=== PATIENT | female | born 1950 | race Caucasian/White ===

== ENCOUNTER → 2017-04-17 | Outpatient (CLI) | payer OTHER ==
[~2017-04-17] MED LIST: ACET-1256 PO; ACT30 PO; CALC-20 PO; CHOL20005 PO; CITA40TA4 PO; COEN200C PO; DICL1GEL12 TOP; FLNIN NAE; IBUP-103 PO; LANS15CA27 PO; LUTE1CAP3 PO; LYSI500C2 PO; MELO7.5T5 PO; METO-157 PO; MULT-1016 PO; NIAC100T5 PO; NIFE30TA83 PO; OMEG10007 PO; SENN-104 PO; SYN125 PO; VENL-273 PO; ZINC50TA3 PO; [UNRECOGNIZED DRUG - CODE] PO
--- NOTE | 2017-04-17 13:41 | MAMMOGRAPHY REPORT ---
BILATERAL DIGITAL SCREENING MAMMOGRAM WITH CAD: 04/17/2017 CLINICAL HISTORY: Routine screening. Patient has no complaints. TECHNIQUE: Current study was also evaluated with a Computer Aided Detection (CAD) system. Bilateral CC and MLO views were obtained. COMPARISON: Comparison is made to exams dated: 04/11/2016 mammogram, 04/06/2015 mammogram, 04/05/2014 mamm ogram, 04/01/2013 mammogram, 03/01/2012 mammogram, and 02/26/2011 mammogram - [facility] er. BREAST COMPOSITION: The tissue of both breasts is heterogeneously dense, which may obscure small mas ses. FINDINGS: No suspicious masses, calcifications, or areas of architectural distortion are noted in ei ther breast. There has been no significant interval change compared to prior exams. Scattered bilate ral benign rodlike secretory calcifications are again noted. IMPRESSION: ACR BI-RADS CATEGORY 2: BENIGN There is no mammographic evidence of malignancy. A 1 year screening mammogram is recommended. The pa tient will receive written notification of the results. Approximately 10% of breast cancers are not detected with mammography. A negative mammographic report should not delay biopsy if a clinically suggestive mass is present. Charo Paulino M.D. /:04/17/2017 10:56:24 Straight Ruling Machine Operator: Pamela MOMIN(Roxanne)(M), [facility] letter sent: Normal 1/2 BI-RADS Code: ACR BI-RADS Category 2: Benign
== END | disposition home or self-care (01) ==
LOC: C.MAMM 08:31
PROVIDERS: ATTEND Obstetrics & Gynecology
DX: Z12.31 Encounter for screening mammogram for malignant neoplasm of breast (principal)

== ENCOUNTER → 2017-06-18 | Outpatient (CLI) | payer OTHER ==
[~2017-06-18] MED LIST changes: +ASPEC81 PO; +ATOR10TA82 PO; -CALC-20 PO; +CALC600T9 PO; -CHOL20005 PO; +CHOL20009 PO; +CITA10TA8 PO; -CITA40TA4 PO; +COEN1CAP7 PO; -COEN200C PO; -DICL1GEL12 TOP; -FLNIN NAE; +FLUT0.15 NAE; -IBUP-103 PO; +IBUP-1459 PO; +LEVO112T4 PO; -LUTE1CAP3 PO; -METO-157 PO; -MULT-1016 PO; +MULT-506 PO; -NIAC100T5 PO; -SENN-104 PO; +SENN-65 PO; -SYN125 PO; -[UNRECOGNIZED DRUG - CODE] PO
== END | disposition home or self-care (01) ==
LOC: C.CPL 14:18
PROVIDERS: ATTEND Family Medicine
DX: R07.9 Chest pain, unspecified (principal)

== ENCOUNTER 2024-06-20 13:10 | Observation (INO) ==
--- NOTE | 2024-06-20 13:34 | Emergency Department Note ---
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 Patient notes that she remembers being confused. Per EMS who provided additional history family noted that she had repetitive questioning and did not know what was going on. Patient denies any headache or change or loss of vision. No chest pain or shortness of breath. No nausea, vomiting, or diarrhea. No weakness or numbness is new in the arms or legs per patient. No dysuria, urgency, or frequency. No other exacerbating or remitting factors. ADDITIONAL HISTORY OBTAINED: Per HPI Chronic Medical/Social Conditions Affecting Care: Per HPI PAST MEDICAL HISTORY:See Below PAST SURGICAL HISTORY:See Below FAMILY HISTORY:See Below SOCIAL HISTORY:See Below HOME MEDICATIONS:See Below ALLERGIES:See Below VITALS:See Below PHYSICAL EXAMINATION: GENERAL: Sitting up in bed, alert, well appearing, well nourished, no distress, non-toxic EYE EXAM: normal conjunctiva. PERRL and EOM's intact. OROPHARYNX: no exudate, no erythema, lips, buccal mucosa, and tongue normal and mucous membranes are moist NECK: supple, no nuchal rigidity, no adenopathy, non-tender LUNGS: Clear to auscultation. Normal chest wall mechanics HEART: no murmurs, S1 normal and S2 normal ABDOMEN: abdomen soft, non-tender, normo-active bowel sounds, no masses, no rebound or guarding. BACK: Back is symmetrical on inspection and there is no deformity, no midline tenderness, no CVA tenderness. SKIN: no rashes and no bruising UPPER EXTREMITIES: upper extremities are grossly normal. LOWER EXTREMITIES: No pitting edema. NEURO EXAM: Normal sensorium, cranial nerves II-XII intact, normal speech, no weakness of arms, left lower extremity does appear to be slightly weaker than the right but patient notes that this is old and is always there since her TBI. No drift. Finger to nose intact. Gross sensation intact. MEDICAL DECISION MAKING: Patient is a 74-year-old female who presents to the ER for the above-stated complaint. IV was established blood work was obtained. Labs show no significant leukocytosis or anemia. BMP on LFTs bilirubin was unremarkable. Lipase and troponin were negative. Patient is neurologically intact at her baseline per report and confirmation by family at bedside. CT of the head as well as angios of the head and neck were negative. Chest x-ray was clean. Patient was updated at bedside and attempted to obtain a UA but was unsuccessful as she missed the hat. She was unable to ambulate due to significant weakness and consequently was discussed with the hospitalist for further evaluation management treatment. Consults/Care Managements Discussions: Per MDM Triage Nursing notes reviewed. Limited review of prior medical records performed Vital Signs: reviewed and remarkable for no significant abnormalities Differential diagnosis: Infection, dehydration, metabolic abnormality, hypo/hyperglycemia, electrolyte disturbance, anemia, hypoxia, cardiac sources, intracerebral event, toxicologic, neurologic, as well as other pathologies. ER treatment provided: See below Diagnostics interpreted by me include EKG and cardiac monitoring as listed below: -Cardiac Monitoring: An order was placed for continuous cardiac monitoring. The monitor shows a rate of 70 with sinus rhythm. -ECG: Sinus rhythm rate of 73 Left bundle branch block QTc [address] wave changes in the high lateral leads Septal Q waves -Laboratory studies:Interpreted by me as stated above in MDM and shown below. Imaging studies: Xrays: As interpreted by me: Portable AP upright 1 view of the chest shows no focal infiltrate CTs show: CT angios of the head and neck were negative Procedures:none Critical Care: None Past Med/Surg History Problem List (Updated 06/20/24 @ 18:19 by Waldo James DO) Weakness (Acute) Acute confusion (Acute) Altered mental status History of traumatic brain injury Ambulatory dysfunction Nocturia Spasticity as late effect of cerebrovascular accident (CVA) Gait disorder Low back pain DVT femoral (deep venous thrombosis) with thrombophlebitis Weakness of left arm Depression Epidural lipomatosis Stenosis, spinal, lumbar History of cervical spinal surgery C5-C6, C6-C7 in 2005; C4-C5 IN 01/2013 Lumbar vertebral fracture Neurogenic bladder Left leg weakness Fracture of fourth lumbar vertebra Vertigo due to brain injury Urinary incontinence Delirium due to known physiological condition Urinary frequency 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 59 minutes Microalbuminuria Anxiety Chest pain Hypothyroidism Osteoarthritis Mood disorder Raynaud disease Colonic adenoma Sleep apnea Hypertension (Chronic) Hyperlipidemia (Chronic) Diabetes (Chronic) Medical History Edema of left lower leg 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) From a fall-has urgent orthopedic consult ordered Lumbar disc disease with radiculopathy Increased urinary frequency Basal cell carcinoma right med calf Cellulitis Carpal tunnel syndrome Surgical History S/P blepharoplasty 11/15/13 History of surgical fusion joint History of carpal tunnel repair left 08/2010 History of oral surgery History of tubal ligation Family History Mother Hypothyroidism Dyslipidemia Renal failure Heart failure Skin cancer basal cell Arthritis Father Hypertension Heart disease Dyslipidemia Skin cancer (melanoma) basal cell Melanoma of multiple sites Parkinson disease Sister Multiple sclerosis Brother Polymyositis Arthritis Melanoma of multiple sites Glaucoma Denies family history of Ovarian cancer Breast cancer Social History Smoking Status: Never smoker Second Hand Exposure: No; Hx Alcohol Use: Yes Alcohol type: wine and hard liquor Alcohol Intake Frequency: Monthly or Less Hx Substance Use: No Preferred Language: Mosotho Communication Ability: Effective Visual Impairment: Diminished Hearing Ability: Normal Buyer Liaison Required: No marital status: Current Living Situation: Alone Current Living Situation Comment: cat current occupational status: employed current occupation: [employer] How many Children do You have: 0 Feels Safe at Home: Yes Childhood Exposure to Second-Hand Smoke: No Diet: regular caffeine: Yes (1 cup a day) Dental Care, Regularly: Yes Physical Activity Frequency: Does not Exercise Seatbelt Use: always Sunscreen Use: Yes Assistive Devices: Glasses Allergies Allergies Allergy/AdvReac Type Severity Reaction Status Date / Time adhesive Allergy Mild RASH Verified 06/13/24 15:07 esomeprazole Allergy Mild RASH Verified 06/13/24 15:07 gabapentin Allergy Mild RASH Verified 06/13/24 15:07 hydrochlorothiazide Allergy Mild RASH-MICARD Verified 06/13/24 15:07 IS omeprazole Allergy Mild Rash Verified 06/13/24 15:07 Sulfa (Sulfonamide Allergy Mild RASH Verified 06/13/24 15:07 Antibiotics) telmisartan Allergy Mild RASH-MICARD Verified 06/13/24 15:07 IS thimerosal Allergy Unknown POSITIVE Verified 06/13/24 15:07 ALLERGY TEST codeine AdvReac Mild NAUSEA Verified 06/13/24 15:07 propoxyphene AdvReac Mild NAUSEA Verified 06/13/24 15:07 Home Meds Home Medications Medication Instructions Recorded Confirmed oxybutynin chloride 5 mg tablet 5 mg PO BID PRN 01/21/24 06/13/24 pioglitazone 15 mg tablet 15 mg PO DAILY 01/21/24 06/13/24 acetaminophen 500 mg capsule 500 mg PO HS PRN 06/13/24 06/13/24 Previous Rx's Medication Instructions Recorded meclizine 25 mg tablet 25 mg PO BID PRN dizziness #30 tabs 08/31/23 loperamide 2 mg capsule 2 mg PO Q6H PRN loose stool #14 11/05/23 (Anti-Diarrheal (loperamide)) caps levothyroxine 112 mcg tablet 112 mcg PO DAILY #90 tabs 12/14/23 mirabegron 25 mg tablet,extended 25 mg PO DAILY #90 tabs 12/14/23 release 24 hr (Myrbetriq) rosuvastatin 5 mg tablet (Crestor) 5 mg PO DAILY #90 tabs 12/14/23 valsartan 40 mg tablet 40 mg PO BID #180 tabs 12/14/23 venlafaxine 150 mg 150 mg PO DAILY #90 caps 12/14/23 capsule,extended release 24 hr pantoprazole 40 mg tablet,delayed 40 mg PO DAILY #90 tabs 12/23/23 release (Protonix) venlafaxine 75 mg capsule,extended 75 mg PO DAILY #30 caps 12/24/23 release 24 hr CPAP Machine #1 ea 02/01/24 lorazepam 0.5 mg tablet 0.5 mg PO TID PRN anxiety #90 tabs 02/29/24 nifedipine 60 mg tablet,extended 60 mg PO DAILY 90 days #90 tabs 03/01/24 release baclofen 5 mg tablet 5 mg PO DAILY #30 tabs 05/25/24 desmopressin 0.1 mg tablet 0.1 mg PO HS #30 tabs 06/13/24 sertraline 50 mg tablet 50 mg PO DAILY #30 tabs 06/13/24 Results & Data (ED) Vital Signs Vital Signs - 24 hr 06/20/24 13:21 06/20/24 13:38 06/20/24 13:43 Temperature 36.6 C Temperature Source Oral Pulse Rate 74 76 Pulse Rate from SpO2 Sensor Respiratory Rate 22 Blood Pressure 119/62 Blood Pressure Mean 81 Blood Pressure Position Semi-fowlers Pulse Oximetry 92 Oxygen Delivery Method Room Air Room Air Sepsis Recent Fever Within 48 Hours No Sepsis New/Unexplained Change in Mental Status No Sepsis Action Taken by Nursing No Action Required 06/20/24 13:44 06/20/24 14:09 06/20/24 14:21 Temperature Temperature Source Pulse Rate 76 72 71 Pulse Rate from SpO2 Sensor 73 71 Respiratory Rate 22 17 24 Blood Pressure Blood Pressure Mean Blood Pressure Position Pulse Oximetry 92 91 94 Oxygen Delivery Method Room Air Sepsis Recent Fever Within 48 Hours Sepsis New/Unexplained Change in Mental Status Sepsis Action Taken by Nursing 06/20/24 14:30 06/20/24 14:36 06/20/24 14:42 Temperature Temperature Source Pulse Rate 71 71 Pulse Rate from SpO2 Sensor 71 72 Respiratory Rate 19 19 Blood Pressure 101/48 L Blood Pressure Mean 64 Blood Pressure Position Pulse Oximetry 93 92 Oxygen Delivery Method Sepsis Recent Fever Within 48 Hours Sepsis New/Unexplained Change in Mental Status Sepsis Action Taken by Nursing 06/20/24 15:00 06/20/24 15:03 06/20/24 15:51 Temperature Temperature Source Pulse Rate 80 79 Pulse Rate from SpO2 Sensor 80 80 Respiratory Rate 20 22 Blood Pressure 107/57 L Blood Pressure Mean 62 Blood Pressure Position Pulse Oximetry 93 94 Oxygen Delivery Method Room Air Room Air Sepsis Recent Fever Within 48 Hours Sepsis New/Unexplained Change in Mental Status Sepsis Action Taken by Nursing 06/20/24 16:00 06/20/24 16:00 06/20/24 16:27 Temperature Temperature Source Pulse Rate 79 81 Pulse Rate from SpO2 Sensor 80 Respiratory Rate 20 16 Blood Pressure 136/69 Blood Pressure Mean 103 Blood Pressure Position Pulse Oximetry 94 Oxygen Delivery Method Room Air Sepsis Recent Fever Within 48 Hours Sepsis New/Unexplained Change in Mental Status Sepsis Action Taken by Nursing 06/20/24 16:30 06/20/24 16:33 06/20/24 16:57 Temperature Temperature Source Pulse Rate 79 79 Pulse Rate from SpO2 Sensor Respiratory Rate 20 18 Blood Pressure 140/76 Blood Pressure Mean 122 Blood Pressure Position Pulse Oximetry Oxygen Delivery Method Sepsis Recent Fever Within 48 Hours Sepsis New/Unexplained Change in Mental Status Sepsis Action Taken by Nursing 06/20/24 17:00 06/20/24 17:06 06/20/24 17:51 Temperature Temperature Source Pulse Rate 81 81 Pulse Rate from SpO2 Sensor Respiratory Rate 17 Blood Pressure 142/78 H Blood Pressure Mean 107 Blood Pressure Position Pulse Oximetry Oxygen Delivery Method Sepsis Recent Fever Within 48 Hours Sepsis New/Unexplained Change in Mental Status Sepsis Action Taken by Nursing Laboratory Data 06/20/24 13:35 06/20/24 13:35 Lab Results 06/20/24 Range/Units 13:35 WBC 4.89 (4.8-10.8) K/ul RBC 4.92 (4.20-5.40) M/uL Hgb 15.6 (12.0-16.0) g/dl Hct 45.3 (37.0-47.0) % MCV 92.1 (80.0-100.0) fL MCH 31.7 (25.0-34.0) pg MCHC 34.4 (32.0-36.0) g/dL RDW Std Deviation 41.5 (36.4-46.3) fL RDW Coeff of Manuel 12.2 (11.5-14.5) % Plt Count 303 (130-400) K/uL MPV 9.0 L (9.4-12.4) fL Immature Gran % (Auto) 0.4 % Neut % (Auto) 50.7 % Lymph % (Auto) 34.2 % Emmet % (Auto) 12.7 % Eos % (Auto) 1.6 % Baso % (Auto) 0.4 % Neut # (Auto) 2.48 (1.40-6.50) K/uL Lymph # (Auto) 1.67 (1.20-3.40) K/uL Emmet # (Auto) 0.62 H (0.11-0.59) K/uL Eos # (Auto) 0.08 (0.00-0.50) K/uL Baso # (Auto) 0.02 (0.00-0.20) K/uL Immature Gran # (Auto) 0.02 (0.01-0.20) K/uL Sodium 137 (136-145) mmol/L Potassium 4.5 (3.5-5.1) mmol/L Chloride 103 (98-107) mmol/L Carbon Dioxide 26 (21-32) mmol/L Anion Gap 8 (3-11) BUN 24 H (6-23) mg/dl Creatinine 0.98 (0.6-1.2) mg/dl Est Cr Clr Drug Dosing 45.1 ml/min eGFR 60.19 BUN/Creatinine Ratio 24.5 H (10-20) Glucose 93 (70-99(Fasting)) mg/dl Calcium 10.2 (8.6-10.3) mg/dl Total Bilirubin 0.4 (0.2-1.0) mg/dl AST 25 (13-39) U/L ALT 21 (7-52) U/L Alkaline Phosphatase 52 (34-104) U/L Troponin I High Sens 3.3 (0-14) pg/ml Total Protein 7.7 (6.0-8.3) gm/dl Albumin 4.5 (3.4-5.0) gm/dl Globulin 3.2 (2.5-4.0) gm/dl Albumin/Globulin Ratio 1.4 (0.9-2) Lipase 15 (11-82) U/L Administered Medications Discontinued Medications Sodium Chloride (Nss) 500 mls @ 999 mls/hr IV .Q31M ONE Stop: 06/20/24 13:58 Last Infusion: 06/20/24 14:44 Dose: Infused Documented By: Admin: 06/20/24 14:13 Dose: 999 mls/hr Documented By: MAURICE Ioversol (Optiray 320 125ml) 117 ml IV ONCE ONE Stop: 06/20/24 17:35 Last Admin: 06/20/24 17:36 Dose: 117 ml Documented By: KIP Imaging Data Radiologist's Impression: Chest X-Ray 06/20/24 13:28 XR chest 1V portable CLINICAL HISTORY: Chest pain, nonspecific COMPARISON STUDY: Chest radiograph January. Chest CT May 18, 2024. FINDINGS: Postoperative findings within the spine are incidentally noted. Lung volumes are normal. Lungs are clear. There is no pneumothorax or pleural effusion. Cardiac size is stable. There is a small hiatal hernia. There is no evidence for pulmonary edema. IMPRESSION: No acute cardiopulmonary findings. ACT 112: Negative or not required by law. Electronically signed by: Filiberto Butler M.D. 06/20/2024 2:[address] 06/20/24 13:29 CT OF THE HEAD WITHOUT CONTRAST CLINICAL HISTORY: Altered mental status. COMPARISON STUDY: Head CT May 18, 2024. CT DOSE: 625.8 mGy.cm TECHNIQUE: Helical axial images of the head were obtained without IV contrast. Automated exposure control was utilized for the study. A dose lowering technique was utilized adhering to the principles of ALARA. FINDINGS: No acute intracranial hemorrhage, midline shift or mass effect is present. The ventricular system is stable. White matter hypodensities are unchanged and favor small vessel disease. The basal cisterns are patent. No extra-axial collections are present. There are no findings to suggest acute dural sinus thrombosis or acute territorial infarct. No significant calvarial abnormalities are present. Visualized portions of the sinuses and mastoid air cells are clear. IMPRESSION: No acute intracranial findings. No change in appearance of the brain. ACT 112: Negative or not required by law. Electronically signed by: Filiberto Butler M.D. 06/20/2024 2:26 PM Head CTA 06/20/24 16:32 EXAM: CT Angiography Head With Intravenous Contrast INDICATION: Off balance. Right lower extremity deficit. TECHNIQUE: Axial computed tomographic angiography images of the head with intravenous contrast. Sagittal and coronal reformatted images were created and reviewed. This CT exam was performed using one or more of the following dose reduction techniques: automated exposure control, adjustment of the mA and/or kV according to patient size, and/or use of iterative reconstruction technique. MIP reconstructed images were created and reviewed. CONTRAST: 117 ml of Optiray 320 was administered intravenously. COMPARISON: CT head 05/18/2024 FINDINGS: Right internal carotid artery: Diffuse atherosclerosis. Intracranial segment is patent with no significant stenosis. No aneurysm. Right anterior cerebral artery: No abnormality noted. No occlusion or significant stenosis. No aneurysm. Right middle cerebral artery: No abnormality noted. No occlusion or significant stenosis. No aneurysm. Right posterior cerebral artery: No abnormality noted. No occlusion or significant stenosis. No aneurysm. Right vertebral artery: No significant abnormality noted. Left internal carotid artery: Diffuse atherosclerosis. Intracranial segment is patent with no significant stenosis. No aneurysm. Left anterior cerebral artery: No abnormality noted. No occlusion or significant stenosis. No aneurysm. Left middle cerebral artery: No abnormality noted. No occlusion or significant stenosis. No aneurysm. Left posterior cerebral artery: No abnormality noted. No occlusion or significant stenosis. No aneurysm. Left vertebral artery: Small focal calcified plaque left vertebral artery without stenosis. No occlusion. Basilar artery: No abnormality noted. No occlusion or significant stenosis. No aneurysm. Other vasculature: Patent dural venous sinuses. Brain and extra-axial spaces: There is age appropriate cortical atrophy and chronic ischemic periventricular white matter hypodensity. No acute infarct, hemorrhage or mass noted. Orbits: Incidental right optic drusen. IMPRESSION: 1. There is minimal atherosclerotic plaque in the intracranial left vertebral artery. No large vessel occlusion, aneurysm or dissection. 2. Cerebral atrophy. No acute changes. ACT 112: Negative or not required by law. Electronically signed by Kadi Yen 06-20-2024 6:09 PM Neck CTA 06/20/24 16:32 EXAM: CT Angiography Neck With Intravenous Contrast INDICATION: Off balance. Right lower extremity deficits. TECHNIQUE: Routine carotid CT angiography protocol was performed with intravenous contrast. NASCET criteria using the distal ICAs for comparison were used for evaluation of stenoses. Sagittal and coronal reformatted images were created and reviewed. This CT exam was performed using one or more of the following dose reduction techniques: automated exposure control, adjustment of the mA and/or kV according to patient size, and/or use of iterative reconstruction technique. MIP reconstructed images were created and reviewed. CONTRAST: 117ml of Optiray 320 was administered intravenously. COMPARISON: None. FINDINGS: VASCULATURE: Right common carotid artery: No abnormality noted. No occlusion or significant stenosis. No dissection. Right internal carotid artery: Markedly tortuous. Extracranial segment is patent with no occlusion or significant stenosis. No dissection. Right external carotid artery: No abnormality noted. No occlusion. Right vertebral artery: No abnormality noted. No occlusion or significant stenosis. No dissection. Left common carotid artery: No abnormality noted. No occlusion or significant stenosis. No dissection. Left internal carotid artery: Minimal calcific plaque at the bulb and in the proximal segment.. Extracranial segment is patent with no occlusion or significant stenosis. No dissection. Left external carotid artery: No abnormality noted. No occlusion. Left vertebral artery: Dominant. No occlusion or significant stenosis. No dissection. NECK: Bones/joints: No acute abnormality noted. Multilevel anterior fusion hardware noted. No acute osseous abnormality.. Soft tissues: No abnormality noted. Lung apices: 3 mm noncalcified left apical pulmonary nodule image 141 series 4. Subpleural 3 mm left upper lobe nodule image 125. CAROTID STENOSIS REFERENCE USING NASCET CRITERIA: % ICA stenosis = (1 - narrowest ICA diameter/diameter of distal cervical ICA) x 100. Mild - <50% stenosis. Moderate - 50-69% stenosis. Severe - 70-94% stenosis. Near occlusion - 95-99% stenosis. Occluded - 100% stenosis. IMPRESSION: 1. No large vessel occlusion, aneurysm or dissection of the arteries of the neck. 2. No significant internal carotid stenosis. ACT 112: Negative or not required by law. Electronically signed by Kadi Yen 06-20-2024 6:06 PM Discharge Plan Visit Data Chief Complaint: Weakness Stated Complaint: DIFF AMBULATING, CONFUSION ED Provider: Waldo James Discharge Problem: Acute confusion, Weakness Forms Stand Alone Forms: [employer] [facility] [employer] Prescriptions Prescriptions: No Action meclizine 25 mg tablet 25 mg PO BID PRN (Reason: dizziness) Qty: 30 3RF venlafaxine 150 mg capsule,extended release 24hr 150 mg PO DAILY Qty: 90 3RF valsartan 40 mg tablet 40 mg PO BID Qty: 180 3RF rosuvastatin [Crestor] 5 mg tablet 5 mg PO DAILY Qty: 90 3RF Myrbetriq 25 mg tablet extended release 24 hr 25 mg PO DAILY Qty: 90 3RF levothyroxine 112 mcg tablet 112 mcg PO DAILY Qty: 90 3RF pantoprazole [Protonix] 40 mg tablet,delayed release (DR/EC) 40 mg PO DAILY Qty: 90 3RF (DME) CPAP Machine Misc .Route Qty: 1 0RF Rx Instructions: Discontinue oxygen and CPAP lorazepam 0.5 mg tablet 0.5 mg PO TID PRN (Reason: anxiety) Qty: 90 5RF nifedipine 60 mg tablet extended release 60 mg PO DAILY 90 Days Qty: 90 3RF baclofen 5 mg tablet 5 mg PO DAILY Qty: 30 2RF oxybutynin chloride 5 mg tablet 5 mg PO BID PRN pioglitazone 15 mg tablet 15 mg PO DAILY loperamide [Anti-Diarrheal (loperamide)] 2 mg capsule 2 mg PO Q6H PRN (Reason: loose stool) Qty: 14 2RF venlafaxine 75 mg capsule,extended release 24hr 75 mg PO DAILY Qty: 30 2RF acetaminophen 500 mg capsule 500 mg PO HS PRN sertraline 50 mg tablet 50 mg PO DAILY Qty: 30 2RF Rx Instructions: take 25 mg daily for 2 weeks then 50 mg daily desmopressin 0.1 mg tablet 0.1 mg PO HS Qty: 30 3RF Referrals Referrals: Nilton Fuller MD [Primary Care Provider] -
[2024-06-20 13:56] LABS: Basophils # (auto) 0.02 K/uL (0.00-0.20); Basophils % (auto) 0.4 %; Eosinophils # (auto) 0.08 K/uL (0.00-0.50); Eosinophils % (auto) 1.6 %; Hematocrit (blood only) 45.3 % (37.0-47.0); Hemoglobin 15.6 g/dl (12.0-16.0); Immature Granulocytes # (auto) 0.02 K/uL (0.01-0.20); Immature Granulocytes % (auto) 0.4 %; Lymphocytes # (auto) 1.67 K/uL (1.20-3.40); Lymphocytes % (auto) 34.2 %; Mean Corpuscular Hemoglobin 31.7 pg (25.0-34.0); Mean Corpuscular Hgb Conc 34.4 g/dL (32.0-36.0); Mean Corpuscular Volume 92.1 fL (80.0-100.0); Monocytes # (auto) 0.62 K/uL (0.11-0.59); Monocytes % (auto) 12.7 %; Neutrophils # (auto) 2.48 K/uL (1.40-6.50); Neutrophils % (auto) 50.7 %; Platelet Count 303 K/uL (130-400); RDW Coefficient of Variation 12.2 % (11.5-14.5); RDW Standard Deviation 41.5 fL (36.4-46.3); Red Blood Count 4.92 M/uL (4.20-5.40); White Blood Count 4.89 K/ul (4.8-10.8)
[2024-06-20] MEDS: SODIUM CHLORIDE 0.9% 500 ML IV ONE (14:13)
[2024-06-20 14:18] LABS: Albumin Globulin Ratio 1.4 (0.9-2); Albumin Level 4.5 gm/dl (3.4-5.0); BUN Creatinine Ratio 24.5 (10-20); Bilirubin,Total 0.4 mg/dl (0.2-1.0); Calcium 10.2 mg/dl (8.6-10.3); Creatinine Clr Calc Pharmacy 45.1 ml/min; Globulin 3.2 gm/dl (2.5-4.0); Potassium 4.5 mmol/L (3.5-5.1); Total Protein 7.7 gm/dl (6.0-8.3)
[2024-06-20 14:23] LABS: Troponin I High Sensitivity 3.3 pg/ml (0-14)
--- NOTE | 2024-06-20 14:24 | XRay Report ---
XR chest 1V portable CLINICAL HISTORY: Chest pain, nonspecific COMPARISON STUDY: Chest radiograph January. Chest CT May 18, 2024. FINDINGS: Postoperative findings within the spine are incidentally noted. Lung volumes are normal. Rhonda ngs are clear. There is no pneumothorax or pleural effusion. Cardiac size is stable. There is a small hiatal hernia. There is no evidence for pulmonary edema. IMPRESSION: No acute cardiopulmonary findings. ACT 112: Negative or not required by law. Electronically signed by: Filiberto Butler M.D. 06/20/2024 2:23 PM
--- NOTE | 2024-06-20 14:27 | CT Scan Report ---
CT OF THE HEAD WITHOUT CONTRAST CLINICAL HISTORY: Altered mental status. COMPARISON STUDY: Head CT May 18, 2024. CT DOSE: 625.8 mGy.cm TECHNIQUE: Helical axial images of the head were obtained without IV contrast. Automated exposure con trol was utilized for the study. A dose lowering technique was utilized adhering to the principles o f ALARA. FINDINGS: No acute intracranial hemorrhage, midline shift or mass effect is present. The ventricular system is stable. White matter hypodensities are unchanged and favor small vessel disease. The basal cisterns are patent. No extra-axial collections are present. There are no findings to suggest acute d ural sinus thrombosis or acute territorial infarct. No significant calvarial abnormalities are presen t. Visualized portions of the sinuses and mastoid air cells are clear. IMPRESSION: No acute intracranial findings. No change in appearance of the brain. ACT 112: Negative or not required by law. Electronically signed by: Filiberto Butler M.D. 06/20/2024 2:26 PM
--- NOTE | 2024-06-20 15:52 | History & Physical Report ---
Date of Service June 20, 2024 Assessment & Plan (1) Ambulatory dysfunction: Plan: Patient presented on 06/20 for worsening balance x 24 to 48 hours Difficulty getting out of bed and standing H/o recurrent falls that are increasing in frequency; 4 falls at the past month Ambulates with walker at baseline PT/OT evaluations appreciated Fall precautions Case management consulted in the event that patient requires rehab upon discharge (2) Altered mental status: Plan: Per sister, patient exhibited transient confusion on the morning of 06/10 LNK the evening prior Repetitive questioning every 15 minutes x 1 hour; transient, resolved prior to ED arrival A&O x 3 on arrival, patient does acknowledge she felt confused Sister reports she has been more easily confused over the past month for an unknown reason No personal h/o stroke, per sister Only recent change in medication was that desmopressin was added 1 week ago for urinary incontinence; also started on sertraline; sodium okay Patient has had gradual decline ever since her TBI; however, given acute onset of balance issues and ambulatory dysfunction, there is concern for vertebral stroke Head CT on arrival without acute findings Head/neck CT angiograms ordered, pending Brain MRI ordered, pending Echocardiogram ordered, pending Dysphagia screen Permissive HTN (*patient has been normotensive/hypotensive in the ED) Neurology consult pending brain MRI (3) History of traumatic brain injury: Plan: 07/21/2023 at [facility] trauma services; found down on the floor at the base of her stairs Imaging at the time revealed subarachnoid hemorrhage in the bilateral frontal lobes Residual deficits, mainly in the left upper and lower extremities Plan Disposition: Obs - Admit to MedSurg telemetry DNR/DNI Regular diet once patient passes dysphagia screen VTE PPx: Teds (high fall risk) History of Present Illness Chief Complaint: Weakness, confusion Primary Care Provider: Nilton Fuller MD Roxi is a 74-year-old female with PMH of TBI/SAH, anxiety, mood disorder, 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 She presented via EMS for increased weakness and confusion on the morning of 06/20. Patient lives with her sister, who is also her medical consumer attorney/POA. Per sister, the patient woke up this morning with ambulatory dysfunction and an acute change in cognitive baseline. Patient was repeating the same questions every 15 minutes; this is lasted for approximately 1 hour. No slurred speech or facial droop appreciated this morning. No personal history of stroke, but patient reports she does have a family history of stroke. Patient does have a history of recurrent falls, and sister reports that she has fallen 4 times over the past month. Her ambulatory function has gradually decreased over the past month. Ambulates with a walker at baseline; she has had residual ambulatory difficulty in her left lower extremity ever since her TBI/subarachnoid hemorrhage. However yesterday, she was complaining of right lower extremity deficits. She has also been complaining of increased balance issues for the past 24-48 hours. Patient took her regular morning medicine today; only recent change in medication was that she was started on desmopressin 1 week ago for urinary incontinence. Patient follows with Dr. Luis (Neurology); sister called neurology this morning, and neurology recommended that she have an MRI scheduled or that they should go to the ER if clinical worsening. Patient denies smoking, tobacco use, recent alcohol use. Patient is mildly hypotensive at 107/57 at time of admission; vitals otherwise stable. ED course: NSS 500 mL IV ROS: Patient endorses headache (posterior), ambulatory dysfunction, feeling off balance, lower extremity deficits (normally it is her left lower extremity, but yesterday it was her right lower extremity), numbness and tingling in the left arm (chronic), and acute onset of confusion. Patient denies fever, chills, night sweats, change in vision, slurred speech, facial droop, chest pain, chest palpitations, pleuritic CP, SOB, cough, congestion, abdominal pain, N/V/D, changes in urinary bowel habits, burning with urination, or blood in the urine or stool. Allergies Allergy/AdvReac Type Severity Reaction Status Date / Time adhesive Allergy Mild RASH Verified 06/20/24 18:27 esomeprazole Allergy Mild RASH Verified 06/20/24 18:27 gabapentin Allergy Mild RASH Verified 06/20/24 18:27 hydrochlorothiazide Allergy Mild RASH-MICARD Verified 06/20/24 18:27 IS omeprazole Allergy Mild Rash Verified 06/20/24 18:27 Sulfa (Sulfonamide Allergy Mild RASH Verified 06/20/24 18:27 Antibiotics) telmisartan Allergy Mild RASH-MICARD Verified 06/20/24 18:27 IS thimerosal Allergy Unknown POSITIVE Verified 06/20/24 18:27 ALLERGY TEST codeine AdvReac Mild NAUSEA Verified 06/20/24 18:27 propoxyphene AdvReac Mild NAUSEA Verified 06/20/24 18:27 Home Medications Medication Instructions Recorded Confirmed Type meclizine 25 mg tablet 25 mg PO BID PRN dizziness #30 tabs 08/31/23 06/20/24 Rx loperamide 2 mg capsule 2 mg PO Q6H PRN loose stool #14 11/05/23 06/20/24 Rx (Anti-Diarrheal (loperamide)) caps levothyroxine 112 mcg tablet 112 mcg PO DAILY #90 tabs 12/14/23 06/20/24 Rx mirabegron 25 mg tablet,extended 25 mg PO DAILY #90 tabs 12/14/23 06/20/24 Rx release 24 hr (Myrbetriq) rosuvastatin 5 mg tablet (Crestor) 5 mg PO DAILY #90 tabs 12/14/23 06/20/24 Rx valsartan 40 mg tablet 40 mg PO BID #180 tabs 12/14/23 06/20/24 Rx pantoprazole 40 mg tablet,delayed 40 mg PO DAILY #90 tabs 12/23/23 06/20/24 Rx release (Protonix) oxybutynin chloride 5 mg tablet 5 mg PO BID PRN Urinary Retention 01/21/24 06/20/24 History pioglitazone 15 mg tablet 15 mg PO DAILY 01/21/24 06/20/24 History CPAP Machine #1 ea 02/01/24 06/13/24 Rx lorazepam 0.5 mg tablet 0.5 mg PO TID PRN anxiety #90 tabs 02/29/24 06/20/24 Rx nifedipine 60 mg tablet,extended 60 mg PO DAILY 90 days #90 tabs 03/01/24 06/20/24 Rx release acetaminophen 500 mg capsule 500 mg PO HS PRN Pain/Fever 06/13/24 06/20/24 History desmopressin 0.1 mg tablet 0.1 mg PO HS #30 tabs 06/13/24 06/20/24 Rx bupropion HCl 300 mg 24 hr tablet, 300 mg PO QAM 06/20/24 06/20/24 History extended release venlafaxine 150 mg 150 mg PO UD 06/20/24 06/20/24 History capsule,extended release 24 hr venlafaxine 75 mg capsule,extended 75 mg PO UD 06/20/24 06/20/24 History release 24 hr Past Med/Surg History Problem List (Updated 06/20/24 @ 18:19 by Waldo James DO) Weakness (Acute) Acute confusion (Acute) Altered mental status History of traumatic brain injury Ambulatory dysfunction Nocturia Spasticity as late effect of cerebrovascular accident (CVA) Gait disorder Low back pain DVT femoral (deep venous thrombosis) with thrombophlebitis Weakness of left arm Depression Epidural lipomatosis Stenosis, spinal, lumbar History of cervical spinal surgery C5-C6, C6-C7 in 2005; C4-C5 IN 01/2013 Lumbar vertebral fracture Neurogenic bladder Left leg weakness Fracture of fourth lumbar vertebra Vertigo due to brain injury Urinary incontinence Delirium due to known physiological condition Urinary frequency 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 59 minutes Microalbuminuria Anxiety Chest pain Hypothyroidism Osteoarthritis Mood disorder Raynaud disease Colonic adenoma Sleep apnea Hypertension (Chronic) Hyperlipidemia (Chronic) Diabetes (Chronic) Medical History Edema of left lower leg 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) From a fall-has urgent orthopedic consult ordered Lumbar disc disease with radiculopathy Increased urinary frequency Basal cell carcinoma right med calf Cellulitis Carpal tunnel syndrome Surgical History S/P blepharoplasty 11/15/13 History of surgical fusion joint History of carpal tunnel repair left 08/2010 History of oral surgery History of tubal ligation Family History Mother Hypothyroidism Dyslipidemia Renal failure Heart failure Skin cancer basal cell Arthritis Father Hypertension Heart disease Dyslipidemia Skin cancer (melanoma) basal cell Melanoma of multiple sites Parkinson disease Sister Multiple sclerosis Brother Polymyositis Arthritis Melanoma of multiple sites Glaucoma Denies family history of Ovarian cancer Breast cancer Social History Smoking Status: Never smoker Second Hand Exposure: No; Hx Alcohol Use: No Hx Substance Use: No Preferred Language: Welsh Communication Ability: Effective Visual Impairment: Diminished Hearing Ability: Normal Percussion Instrument Tuner Required: No Beliefs That Will Affect Care: None marital status: Current Living Situation: Family Current Living Situation Comment: lives with sister and [id number] current occupational status: employed current occupation: [employer] How many Children do You have: 0 Other Information That Helps Us Care for You: No Feels Safe at Home: Yes Safety Concerns: Feels Safe At This Time Childhood Exposure to Second-Hand Smoke: No Diet: regular caffeine: Yes (1 cup a day) Dental Care, Regularly: Yes Physical Activity Frequency: Does not Exercise Seatbelt Use: always Sunscreen Use: Yes Assistive Devices: Walker Review of Systems Review of Systems: See HPI above Physical Exam Physical Exam: General: no acute distress; pleasant affect; non-toxic appearing; well- nourished; cooperative; SpO2 93% on RA HEENT: normocephalic, atraumatic; no scleral icterus; PERRLA; vision and hearing intact; patient demonstrates to be the ability to smile, frown, and lift eyebrows without unilateral deficits; patient demonstrates ability to protrude and wiggle tongue bilaterally without deficits Neck: supple; no lymphadenopathy; trachea midline; patient demonstrates ability to shrug shoulders against resistance and rotate neck bilaterally without deficits (does note some pain on turning her head to the left, which is not new for her) Skin: warm, dry without signs of tenting; no cyanosis; no rashes, bruising, lesions, or erythema noted CV: chest wall NTP; RRR; S1/S2 normal; no murmurs/rubs/gallops; pulses intact and symmetric at radial, DP, and PT Lungs: no acute respiratory distress; symmetrical chest wall expansion; clear breath sounds across all lung preston w/o adventitious sounds; no wheezing ABD: Soft, NTP; BS present; no rebound/guarding; no distention MSK: no tics or fasciculations; no edema noted in the LEs b/l, nonerythematous; 4/5 publicity director strength bilaterally; patient demonstrates ability to wiggle toes and lift legs off the bed while lying supine with 4/5 strength bilaterally Neuro: A&Ox3; normal mood and affect; fluent speech; no slurred speech or facial droop; she reports that sensation is intact and symmetric in the lower extremities/upper extremities/face bilaterally Results & Data Results & Data Vital Signs (Past 12 Hours) Vital Signs Temp Pulse Resp BP Pulse Ox O2 Del Method 06/20/24 15:03 80 20 93 Room Air 06/20/24 15:00 107/57 L 06/20/24 14:42 71 19 92 06/20/24 14:36 71 19 93 06/20/24 14:30 101/48 L 06/20/24 14:21 71 24 94 06/20/24 14:09 72 17 91 06/20/24 13:44 76 22 92 Room Air 06/20/24 13:43 Room Air 06/20/24 13:38 36.6 C 76 22 119/62 92 Room Air 06/20/24 13:21 74 Laboratory Results Abnormal lab results 06/20/24 Range/Units 13:35 MPV 9.0 L (9.4-12.4) fL [place] # (Auto) 0.62 H (0.11-0.59) K/uL BUN 24 H (6-23) mg/dl BUN/Creatinine Ratio 24.5 H (10-20) Diagnostic Findings Chest X-Ray 06/20/24 13:28 XR chest 1V portable CLINICAL HISTORY: Chest pain, nonspecific COMPARISON STUDY: Chest radiograph January. Chest CT May 18, 2024. FINDINGS: Postoperative findings within the spine are incidentally noted. Lung volumes are normal. Lungs are clear. There is no pneumothorax or pleural effusion. Cardiac size is stable. There is a small hiatal hernia. There is no evidence for pulmonary edema. IMPRESSION: No acute cardiopulmonary findings. ACT 112: Negative or not required by law. Electronically signed by: Filiberto Butler M.D. 06/20/2024 2:[address] 06/20/24 13:29 CT OF THE HEAD WITHOUT CONTRAST CLINICAL HISTORY: Altered mental status. COMPARISON STUDY: Head CT May 18, 2024. CT DOSE: 625.8 mGy.cm TECHNIQUE: Helical axial images of the head were obtained without IV contrast. Automated exposure control was utilized for the study. A dose lowering technique was utilized adhering to the principles of ALARA. FINDINGS: No acute intracranial hemorrhage, midline shift or mass effect is present. The ventricular system is stable. White matter hypodensities are unchanged and favor small vessel disease. The basal cisterns are patent. No extra-axial collections are present. There are no findings to suggest acute dural sinus thrombosis or acute territorial infarct. No significant calvarial abnormalities are present. Visualized portions of the sinuses and mastoid air cells are clear. IMPRESSION: No acute intracranial findings. No change in appearance of the brain. ACT 112: Negative or not required by law. Electronically signed by: Filiberto Butler M.D. 06/20/2024 2:26 PM ECG Additional Comments: ECG revealed NSR at 73 bpm; QTc 456 Code Status & VTE Plan Code Status DNR/DNI VTE Prophylaxis Plan VTE Prophylaxis will be ordered: Yes Supervising Physician Co-Signing Physician Notes I personally saw and examined the patient. I independently reviewed the labs, EKG, imaging, problem list, medication list, past medical history and family history. I verified all varela points and agree with Jed Vega PA-C with the following exceptions and/or additions: 74 year old with intermittent confusion episodes especially at night and in the morning with occasional focal neurological deficits new to her more longstanding left sided spasticity from her recent TBI. Notably previously on CPAP HS but after a bad experience at [facility] has not used it since. O/E HS RRR, no murmurs, Chest CTAB, Abdo SNT, PERRL, left sided increased rigidity, otherwise no right sided focal neurological deficit, no facial droop A/P Ongoing intermittent ambulatory dysfunction and confusion since TBI - possible new neurological symptoms as mentioned above although no changed on brain MRI. Will consult her usual neurologist for any ongoing recommendations regarding her medications. Recently coming off Latuda has helped. Ongoing lorazepam use which may be contributing although she takes this in the mornings and confusion more at night or before she takes her pills in the morning. Prior history of MELITA. No longer on CPAP after a bad experience at [facility] and does not wish to try again. ?hypoxia at night or hypercapnia in the morning playing a part. Will get overnight pulse ox here and AM ABG to further assess. PG Care Time/CCT Total # of Minutes Spent Total Time Spent with Patient: Total time spent is greater than 50% in coordination of care (as documented) at patient's floor/unit and/or counseling patient: Coding [place] [address] INT INP/OBS CARE 3/75MIN Patient Type Established Medical Decision Making High Complexity Diagnoses Ambulatory dysfunction R26.2 Altered mental status R41.82 History of traumatic brain injury Z87.820
[2024-06-20] MEDS ORDERED: PHARMACIST DISCHARGE MED REC CONSULT PRN (16:28)
--- NOTE | 2024-06-20 16:58 | Electrocardiogram Report ---
Test Reason : Blood Pressure : */* mmHG Vent. Rate : 73 BPM Atrial Rate : 73 BPM P-R Int : 160 ms QRS Dur : 120 ms QT Int : 414 ms P-R-T Axes : 25 -6 96 degrees QTcB Int : 456 ms Normal sinus rhythm Left bundle branch block Abnormal ECG When compared with ECG of 18-Jun-2017 14:25, No significant change Confirmed by Luke Bernardo ([id number]) on 06/20/2024 4:58:33 PM Referred By: Confirmed By: Luke Bernardo
[2024-06-20] MEDS: OPTIRAY 320 125ml IV ONE (17:36)
--- NOTE | 2024-06-20 18:06 | CT Scan Report ---
EXAM: CT Angiography Neck With Intravenous Contrast INDICATION: Off balance. Right lower extremity deficits. TECHNIQUE: Routine carotid CT angiography protocol was performed with intravenous contrast. NASCET criteria using the distal ICAs for comparison were used for evaluation of stenoses. Sagittal and coronal reformatted images were created and reviewed. This CT exam was performed using one or more of the following dose reduction techniques: automated exposure control, adjustment of the mA and/or kV according to patient size, and/or use of iterative reconstruction technique. MIP reconstructed images were created and reviewed. CONTRAST: 117ml of Optiray 320 was administered intravenously. COMPARISON: None. FINDINGS: VASCULATURE: Right common carotid artery: No abnormality noted. No occlusion or significant stenosis. No dissection. Right internal carotid artery: Markedly tortuous. Extracranial segment is patent with no occlusion or significant stenosis. No dissection. Right external carotid artery: No abnormality noted. No occlusion. Right vertebral artery: No abnormality noted. No occlusion or significant stenosis. No dissection. Left common carotid artery: No abnormality noted. No occlusion or significant stenosis. No dissection. Left internal carotid artery: Minimal calcific plaque at the bulb and in the proximal segment.. Extracranial segment is patent with no occlusion or significant stenosis. No dissection. Left external carotid artery: No abnormality noted. No occlusion. Left vertebral artery: Dominant. No occlusion or significant stenosis. No dissection. NECK: Bones/joints: No acute abnormality noted. Multilevel anterior fusion hardware noted. No acute osseous abnormality.. Soft tissues: No abnormality noted. Lung apices: 3 mm noncalcified left apical pulmonary nodule image 141 series 4. Subpleural 3 mm left upper lobe nodule image 125. CAROTID STENOSIS REFERENCE USING NASCET CRITERIA: % ICA stenosis = (1 - narrowest ICA diameter/diameter of distal cervical ICA) x 100. Mild - <50% stenosis. Moderate - 50-69% stenosis. Severe - 70-94% stenosis. Near occlusion - 95-99% stenosis. Occluded - 100% stenosis. IMPRESSION: 1. No large vessel occlusion, aneurysm or dissection of the arteries of the neck. 2. No significant internal carotid stenosis. ACT 112: Negative or not required by law. Electronically signed by Kadi Yen 06-20-2024 6:06 PM
--- NOTE | 2024-06-20 18:10 | CT Scan Report ---
EXAM: CT Angiography Head With Intravenous Contrast INDICATION: Off balance. Right lower extremity deficit. TECHNIQUE: Axial computed tomographic angiography images of the head with intravenous contrast. Sagittal and coronal reformatted images were created and reviewed. This CT exam was performed using one or more of the following dose reduction techniques: automated exposure control, adjustment of the mA and/or kV according to patient size, and/or use of iterative reconstruction technique. MIP reconstructed images were created and reviewed. CONTRAST: 117 ml of Optiray 320 was administered intravenously. COMPARISON: CT head 05/18/2024 FINDINGS: Right internal carotid artery: Diffuse atherosclerosis. Intracranial segment is patent with no significant stenosis. No aneurysm. Right anterior cerebral artery: No abnormality noted. No occlusion or significant stenosis. No aneurysm. Right middle cerebral artery: No abnormality noted. No occlusion or significant stenosis. No aneurysm. Right posterior cerebral artery: No abnormality noted. No occlusion or significant stenosis. No aneurysm. Right vertebral artery: No significant abnormality noted. Left internal carotid artery: Diffuse atherosclerosis. Intracranial segment is patent with no significant stenosis. No aneurysm. Left anterior cerebral artery: No abnormality noted. No occlusion or significant stenosis. No aneurysm. Left middle cerebral artery: No abnormality noted. No occlusion or significant stenosis. No aneurysm. Left posterior cerebral artery: No abnormality noted. No occlusion or significant stenosis. No aneurysm. Left vertebral artery: Small focal calcified plaque left vertebral artery without stenosis. No occlusion. Basilar artery: No abnormality noted. No occlusion or significant stenosis. No aneurysm. Other vasculature: Patent dural venous sinuses. Brain and extra-axial spaces: There is age appropriate cortical atrophy and chronic ischemic periventricular white matter hypodensity. No acute infarct, hemorrhage or mass noted. Orbits: Incidental right optic drusen. IMPRESSION: 1. There is minimal atherosclerotic plaque in the intracranial left vertebral artery. No large vessel occlusion, aneurysm or dissection. 2. Cerebral atrophy. No acute changes. ACT 112: Negative or not required by law. Electronically signed by Kadi Yen 06-20-2024 6:09 PM
[2024-06-20] MEDS: ALPRAZolam 0.5 MG TABLET PO PRN (19:18)
[2024-06-20] MEDS ORDERED: oxyBUTYnin chloride 5 MG TAB PO PRN (19:28)
[2024-06-20] MEDS ORDERED: MECLIZINE HCL 25 MG TAB PO PRN (19:28)
[2024-06-20] MEDS ORDERED: LOPERAMIDE HCL 2 MG CAP PO PRN (19:28)
[2024-06-20 19:32] LABS: Appearance Urine Clear (Clear); Bilirubin Urine Negative (Negative); Blood Urine Negative (Negative); Color Urine Yellow; Glucose Urine UA Negative (Negative); Ketones Urine Negative (Negative); Leukocyte Esterase Urine Negative (Negative); Nitrite Urine Negative (Negative); Protein Urine Negative (Negative); Specific Gravity Urine 1.043 (1.000-1.030); Urobilinogen Urine Negative (Negative)
[2024-06-20] MEDS: DESMOPRESSIN ACETATE 0.1 MG TAB PO SCH (22:33)
[2024-06-20] MEDS: VALSARTAN 80 MG TAB PO SCH (22:33)
--- NOTE | 2024-06-20 22:46 | Magnetic Resonance Report ---
Exam(s): MRI HEAD Without Contrast EXAM: MR Head Without Intravenous Contrast CLINICAL HISTORY: Reason for exam: Off balance; RLE deficits; vertebral CVA r/o. TECHNIQUE: Magnetic resonance images of the head/brain without intravenous contrast in multiple planes. COMPARISON: Prior head CT from June 20, 2024. FINDINGS: Brain: Moderate nonspecific white matter changes. No mass. No hemorrhage. No acute infarct. The flow voids of the base of the brain are intact. Ventricles: Moderate ventriculomegaly. Bones/joints: Unremarkable. No acute fracture. Sinuses: Unremarkable as visualized. No acute sinusitis. Mastoid air cells: Unremarkable as visualized. No mastoid effusion. Orbits: Bilateral lens replacements. IMPRESSION: No evidence of acute intracranial pathology. Electronically signed by: Lizzette Mistry MD 06/20/24 22:45 PM
--- OUTSIDE RECORDS SUMMARY | 2024-06-20 23:38 | External Medical Summary | Summary of Care ---
Author Name Unknown Organization [facility] Address [address] [place] [address] Phone [phone] Care Team Providers Care Road Service Locksmith Name Role Phone Nilton Fuller MD Primary Care Provide r Reason for Referral * Evaluate & Treat - Unlimited Visits (Within 10 days (routine)) - Authorized Specialty Diagnoses / Procedures Referred By Contac t Referred To Contact Urology Diagnoses Neuromuscular dysfunction of bladder, unspecified Nilton Fuller MD [address] [address] Phone: tel: fax: Referral ID Status Reason Start Date Expiration Date Visits Requested Visits Authorized [id number] Authorized Specialty Services Required [phone] Question Answer Referral Priority Within 10 days (routine) Where should this appointment be scheduled? [facility] What is the patient being referred for? Urinary Concerns Comments Neuromuscular dysfunction of bladder Encounter Details Date Type Department Care Team (Late st Contact Info) Description 06/16/2024 Orders Only [facility], [address] *DO NOT REMOVE THIS DEPARTMENT* [place] [id number] Request, External Referral Neuromuscular dysfunction of bladder, unspecified* Allergies Active Allergy Reactions Criticality Noted Date Comments Adhesive Tape Rash 12/16/2002 Codeine Nausea/vomiting 07/08/2013 Propoxyphene Hcl Nausea/vomiting 06/17/2005 Cat Dander Other (Please comment) Low 08/01/2010 SNEEZING Gabapentin Rash Low 08/01/2010 Telmisartan-Hctz Rash Low 08/01/2010 Esomeprazole Magnesium Trihydrate Rash 06/17/2005 Omeprazole Magnesium Rash 08/01/2010 Sulfa Antibiotics Rash Low 08/01/2010 Thimerosal (Thiomersal) Other (Please comment) Low 07/18/2005 eyelid dermatitis--TESTED POSITIVE WITH ALLERGY TESTING documented as of this encounter (statuses as of 06/16/2024) Medications SENNA PLUS 8.6-50 MG PO TABS 2 po daily 0 12/25/2005 Active MULTIVITAMIN PO TABS with iron-1 po daily 0 12/25/2005 Active CALCIUM + D 600-200 MG-UNIT PO TABS Take by mouth daily. 0 0 12/25/2005 Active LANSOPRAZOLE 15 MG PO TBDP Take by mouth daily. Active ZINC 50 MG PO TABS 1 daily Active LYSINE 500 MG PO TABS one daily Active VITAMIN D 2000 UNITS PO CAPSIndications :in pm Take by mouth. Active TYLENOL EXTRA STRENGTH 500 MG PO TABS as needed Active aspirin enteric coated 81 MG TBEC Take 1 Tablet by mouth in the morning. Active Cyclobenzaprine HCl 5 MG Oral Tablet (Flexeril) Take 1 Tablet by mouth 3 times a day as needed. 08/27/2022 Active Meloxicam 7.5 MG Oral Tablet (Mobic) TAKE ONE TABLET BY MOUTH TWICE A DAY 180 Tablet 3 04/17/2022 Active Levothyroxine Sodium 112 MCG Oral Tablet (Levoxyl) TAKE 1 TABLET BY MOUTH DAILY 90 Tablet 3 04/18/2024 11:04 AM EDT 12/14/2023 Active Pantoprazole Sodium 40 MG Oral Tablet Delayed Release (Protonix) TAKE 1 TABLET BY MOUTH DAILY 90 Tablet 3 03/18/2024 11:27 AM EDT 12/14/2023 Active Pioglitazone HCl 15 MG Oral Tablet (Actos) TAKE 1 TABLET BY MOUTH DAILY 90 Tablet 3 03/23/2024 1:27 PM EDT 12/14/2023 Active Rosuvastatin Calcium 5 MG Oral Tablet (Crestor) TAKE 1 TABLET BY MOUTH DAILY 90 Tablet 3 04/15/2024 7:46 AM EDT 12/14/2023 Active Valsartan 40 MG Oral Tablet (Diovan) TAKE 1 TABLET BY MOUTH TWICE A DAY 180 Tablet 3 05/09/2024 2:14 PM EDT 12/14/2023 Active Venlafaxine HCl ER 150 MG Oral Capsule Extended Release 24 Hour (Effexor XR) TAKE 1 CAPSULE BY MOUTH DAILY 90 Capsule 3 03/24/2024 10:52 AM EDT 12/14/2023 Active Venlafaxine HCl ER 75 MG Oral Capsule Extended Release 24 Hour (Effexor XR) TAKE 1 CAPSULE BY MOUTH DAILY WITH 150MG TO EQUAL TOTAL DAILY DOSE OF 225MG 90 Capsule 3 06/14/2024 6:37 PM EST 12/14/2023 Active oxyBUTYnin Chloride 5 MG Oral Tablet (Ditropan) take 1 tablet by mouth twice a day 180 Tablet 3 03/21/2024 2:10 PM EDT 12/24/2023 Active oxyBUTYnin Chloride ER 10 MG Oral Tablet Extended Release 24 Hour (Ditropan XL) Take 1 Tablet by mouth in the morning. 90 Tablet 1 03/28/2024 12:58 PM EDT 12/27/2023 Active NIFEdipine ER 60 MG Oral Tablet Extended Release 24 Hour (Adalat CC) Take one tablet daily 90 Tablet 3 05/13/2024 7:28 AM EDT 03/01/2024 Active buPROPion HCl ER (XL) 300 MG Oral Tablet Extended Release 24 Hour (Wellbutrin XL) Take 1 Tablet by mouth in the morning. 30 Tablet 3 04/25/2024 Active Lurasidone HCl 20 MG Oral Tablet (Latuda) Take 1 Tablet by mouth daily. Take with meal once daily. 30 Tablet 1 05/16/2024 Active documented as of this encounter (statuses as of 06/16/2024) Active Problems Problem Noted Date Diagnosed Date HTN, GOAL BELOW 140/90 06/21/2009 Overview (06/21/2009): Modified per HTN protocol #16. DERMATITIS DUE TO PRESERVATIVES 07/18/2005 ALLERGIC RHINITIS - MIXED TYPE 06/17/2005 EYELID- DERMATITIS 06/17/2005 GERD (gastroesophageal reflux disease) 3 Hypothyroidism 12/16/2002 Intractable migraine 12/16/2002 Overview (11/13/2015): ICD-10 update of inactive term documented as of this encounter (statuses as of 06/16/2024) Resolved Problems Problem Noted Date Diagnosed Date Resolved Date Encounter for examination fo r normal comparison and control in clinical research program 06/28/2018 03/05/2020 Overview (11/19/2020): DO NOT DELETE [employer] DETECT Study: Project # [id number], [employer] Web Developer: Gab Nunes, PhD. SUMMARY: Goal: Establish test characteristics (sensitivity, specificity, PPV, NPV) of a circulating tumor DNA (ctDNA)-based test for cancer. Hypothesis: Circulating tumor DNA (ctDNA) and elevated protein biomarkers (together, the marker panel) can be detected in asymptomatic individuals with early cancer. Specific Aim 1: Determine the prevalence of a positive marker panel test in a prospective clinical cohort of 10,000 asymptomatic women ages 65 to 75 years. Specific Aim 2: Determine the sensitivity, specificity, positive predictive value (PPV) and negative predictive value (NPV) of a marker panel test to identify histologically proven cancers that develop within 5-years of the marker panel evaluation. CONTACTS: During normal business hours, contact study staff at ; after hours Magento Web Developer via the [facility] four slide machine operator . Please contact study team before resolving/deleting from patients problem list. Study phone number: [phone]. Diagnosis changed due to Research Module. Go to Snapshot for study details. Encounter for examination fo r normal comparison and control in clinical research program 06/28/2018 04/03/2022 Overview (11/19/2020): DO NOT DELETE - [employer] DETECT Study: Project # [id number], [employer] Web Developer: Reg Morrison, MS, MPH. SUMMARY: Goal: Establish test characteristics (sensitivity, specificity, PPV, NPV) of a circulating tumor DNA (ctDNA)-based test for cancer. - Hypothesis: Circulating tumor DNA (ctDNA) and elevated protein biomarkers (together, the marker panel) can be detected in asymptomatic individuals with early cancer. - Specific Aim 1: Determine the prevalence of a positive marker panel test in a prospective clinical cohort of 10,000 asymptomatic women ages 65 to 75 years. - Specific Aim 2: Determine the sensitivity, specificity, positive predictive value (PPV) and negative predictive value (NPV) of a marker panel test to identify histologically proven cancers that develop within 5-years of the marker panel evaluation. - CONTACTS: During normal business hours, contact study staff at ; after hours Magento Web Developer via the [facility] four slide machine operator . - Please contact study team before resolving/deleting from patients problem list. Study phone number: [phone]. Diagnosis changed due to Research Module. Go to Snapshot for study details. Dermatitis 12/16/2002 07/18/2005 HYPERTENSION NOS 12/16/2002 06/21/2009 Overview (06/21/2009): Modified per HTN protocol #16. documented as of this encounter (statuses as of 06/16/2024) Immunizations Name Administration Dates Next Due COVID-19 mRNA, LNP-s, No Pre serve, 2-Dose Series (Pfizer) 10/12/2020,09/14/2020 Diptheria/Tetanus (Adult) 07/26/2017 documented as of this encounter Social History Tobacco Use Types Packs/Day Years Used Date Smoking Tobacco: Former Cigarettes 0.5 2 0 08/03/1979 - 08/03/1981 Smokeless Tobacco: Never Comments:no passive smoke ex posures Alcohol Use Standard Drinks/Week Comments Yes 0 (1 standard drink = 0.6 oz pur e alcohol) rare PHQ-2 Answer Date Recorded PHQ Adult Total Score 17 02/29/2024 Hunger Vital Sign Answer Date Recorded Within the past 12 months, y ou worried that your food would run out before you got the money to buy more. Never true 10/14/19 24 Within the past 12 months, t he food you bought just didn't last and you didn't have money to get more. Never true 10/14/2023 Childcare Answer Date Recorded Do you feel overwhelmed with taking care of a child, family member or friend? No 10/14/2023 Does your family need help f inding childcare? (Household - for ages 0-17 years) Not on file 10/14/2023 Clothing Answer Date Recorded Have you been unable to get clothing when it was really needed? No 10/14/2023 Is your family able to get c lothes or diapers when needed? (Household - for ages 0-17 years) Not on file 10/14/2023 Personal Safety Answer Date Recorded Do you feel unsafe or have concerns for your saf ety? No 10/14/2023 Do you have concerns for you r family's safety? (Household - for ages 0-17 years) Not on file 10/14/2023 Utilities Answer Date Recorded Do you have trouble paying y our heating, water, or electric bill? No 10/14/2023 Is your family able to pay t he heat, water, or electric bill? (Household - for ages 0-17 years) Not on file 10/14/2023 Does your family have access to good internet? (Household - for ages 0-17 years) Not on file 10/14/2023 Employment Status Answer Date Recorded Are you unemployed or without regular income? No 10/14/2023 Does the household have a [facility] source of income? (Household - for ages 0-17 years) Not on file 10/14/2023 Social Connections Answer Date Recorded How often do you feel lonely or isolated from th ose around you? Often 10/14/2023 Financial Resource Strain Answer Date R ecorded Do you have any trouble payi ng for your medications, or do you think you might in the future? No 10/14/2023 Does your family have troubl e paying for medicine? (Household - for ages 0-17 years) Not on file 10/14/2023 Transportation Needs Answer Date Record ed READ ONLY Do you have troubl e getting a ride to medical visits or work? Never True 10/14/2023 Does your family have a hard time getting a ride to doctors visits? (Household - for ages 0-17 years) Not on file 10/14/2023 Has lack of transportation k ept you from medical appointments, meetings, work, or from getting things needed for daily living? Check all that apply. (Adult - for ages 18 years and over) Not on file 10/14/2023 Do you (or your family) have trouble finding or paying for a ride (transportation)? (Household - for ages 0-17 years) Not on file 10/14/2023 Housing Stability Answer Date Recorded Do you currently live in a s helter or have no steady place to sleep at night? No 10/14/2023 READ ONLY Do you think you a re at risk of becoming homeless? No 10/14/2023 Does your family worry about paying for your home or becoming homeless? (Household - for ages 0-17 years) Not on file 0 10/14/2023 Are you homeless or worried that you might be in the future? (Adult - for ages 18 years and over) Not on file Are you (or your family) macho eless or worried that you might be in the future? (Household - for ages 0-17 years) Not on file Food Insecurity Answer Date Recorded Do you need food for this week? No 10/14/2023 Are you able to get enough f ood for your family? (Household - for ages 0-17 years) Not on file 10/14/2023 Does your family need food t his week? (Household - for ages 0-17 years) Not on file 10/14/2023 Do you always have enough fo od for your family? 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 Answer Date of Assessment Author No 11/15/2013 4:01 PM EDT Chanel Wong RN * Are you blind or do you have serious difficulty seeing, even when wearing glasses? Answer Date of Assessment Author No 11/15/2013 4:01 PM EDT Chanel Wong RN * Do you have serious difficulty walking or climbing stairs? (5 years old or older) Answer Date of Assessment Author No 11/15/2013 4:01 PM EDT Chanel Wong RN * Do you have difficulty dressing or bathing? (5 years old or older) Answer Date of Assessment Author No 11/15/2013 4:01 PM EDT Chanel Wong RN * Because of a physical, mental, or emotional condition, do you have difficulty doing errands alone such as visiting a doctors office or shopping? (15 years old or older) Answer Date of Assessment Author No 11/15/2013 4:01 PM EDChanel Stinson RN documented as of this encounter Mental Status * Because of a physical, mental, or emotional condition, do you have serious difficulty concentrating, remembering, or making decisions? (5 years old or older) Answer Entry Date Author No 11/15/2013 4:01 PM Chanel Camarena RN documented in this encounter Plan of Treatment Upcoming Encounters Date Type Department Care Team (Late st Contact Info) Description 06/24/2024 2:30 PM EST Telemedicine Psychiatry Lloyd Gregorio [address] [place] [id number] Dorina Diane MD [address] [place] [address] Scheduled Referrals Name Type Priority Associated Diagnoses Orde r Schedule ADULT/PEDS UROLOGY REFERRAL OP Referral Within 10 days (routine) Neuromuscular dysfunction of bladder, unspecified Ordered: 06/16/2024 Health Maintenance Due Date Last Done Comments Albumin/Creatinine Ratio 09/05/2017 09/05/2014 TSH 10/18/2022 10/18/2021, 04/03, 01/28/2021, Additional history exists COVID-19 Vaccine ( season) 2024 05/02/2022, 05/02/2022, 05/28/2021, Additional history exists Influenza Vaccine (FLU shot) (#1) 2024 05/28/2022, 05/01/2021, 06/08/2020, Additional history exists GFR 08/13/2024 08/13/2023, 11/2023, 07/30/2023, Additional history exists Depression Monitoring 02/28/2025 02/29/2024 DXA Scan 01/03/2031 01/04/2024, 08/0 10/2020, 01/04/2019, Additional history exists Fecal Occult Blood Test Discontinued 05/10/2008 Zoster Vaccines Completed 10/18/2018, 08/03, 04/23/2009 Pneumococcal Vaccine: 65+ Years Completed 02/07/2021, 09/14/2015, 05/31/2009 Colonoscopy Discontinued 01/27/2023, 01/02, 04/09/2017, Additional history exists Colorectal Cancer Screening Discontinued RETIRED - COLONOSCOPY-EVERY 5 YRS AGES 18-100 Discontinued 01/27/2023, 01/27/2023, 04/09/2017, Additional history exists Cologuard Discontinued HPV (Gardasil) Vaccine Aged Out No lo nger eligible based on patient's age to complete this topic Hepatitis B Vaccine Aged Out No longe r eligible based on patient's age to complete this topic MENINGOCOCCAL (MENACTRA/MENVEO) Aged Out No longer eligible based on patient's age to complete this topic Sigmoidoscopy Discontinued documented as of this encounter Medical Devices Implanted Type Area Corporate Quality Manager Device Identifier Shelf Expiration Date Model / Serial / Lot Lens Intraoc 18.5 - [id number] - [id number] Implanted:Qty: 1 on 05/19/2019 by Ignacio Montano MD at OR [facility] Left: Eye [employer]OM[employer] 12/01/2023 [id number] / [id number] / Lens Intraoc 20.5 - [id number] - [id number] Implanted:Qty: 1 on 05/26/2019 by Ignacio Montano MD at OR [facility] Right: Eye [employer]CH [employer] LOMB 01/01/2024 [id number] / [id number] / [id number] documented as of this encounter Visit Diagnoses Diagnosis Neuromuscular dysfunction of bladder, unspecified- Primary documented in this encounter Advance Directives * Full Code (Latest Code Status on File) Date Activated Date Inactivated Comments 11/15/2013 10:55 AM 11/16/2013 4:28 PM This order reflects the patients wishes and were consensually agreed upon. Care Teams Road Service Locksmith Relationship Specialty Start Date End Date Nilton Fuller MD [address] [place] [address] PCP - General Family Medicine 04/14/17 documented as of this encounter
--- OUTSIDE RECORDS SUMMARY | 2024-06-20 23:38 | External Medical Summary | Summary of Care ---
Author Name Unknown Organization [facility] Address [address] [place] [address] Phone [phone] Care Team Providers Care Echo Tech Name Role Phone Nilton Fuller MD Primary Care Provide r Encounter Details Date Type Department Care Team (Late st Contact Info) Description 06/09/2024 Population Health External Data Unspecified Department Allergies Active Allergy Reactions Criticality Noted Date [...] times a day as needed. 08/27/2022 Active Levothyroxine Sodium 112 MCG Oral Tablet [...] 06/28/2018 03/05/2020 Overview (11/19/2020): DO NOT DELETE [facility] DETECT Study: Project # [id number], Manager Visual: Gab Nunes, PhD. SUMMARY: Goal: Establish test [...] contact study staff at ; after hours Manager Visual via the [facility] edge trimming machine operator . Please contact study team before resolving/deleting from patients problem list. Study phone number: [phone]. Diagnosis changed due to Research Module. Go to Snapshot for study details. Encounter for examination fo r normal comparison and control in clinical research program 06/28/2018 04/03/2022 Overview (11/19/2020): DO NOT DELETE - [facility] Study: Project # [id number], Manager Visual: Reg Morrison, MS, MPH. SUMMARY: Goal: Establish [...] contact study staff at ; after hours Manager Visual via the [facility] edge trimming machine operator . - Please contact study team before resolving/deleting from patients problem list. Study phone number: [phone]. Diagnosis changed due to Research Module. Go to [employer] for study details. Dermatitis 12/16/2002 07/18/2005 HYPERTENSION [...] No 10/14/2023 Does the household have a re gular source of income? (Household - for ages [...] of Assessment Author No 11/15/2013 4:01 PM Chanel Camarena RN * Are you blind or do you have serious difficulty seeing, even when wearing glasses? Answer Date of Assessment Author No 11/15/2013 4:01 PM Chanel Camarena RN * Do you have serious difficulty walking or climbing stairs? (5 years old or older) Answer Date of Assessment Author No 11/15/2013 4:01 PM Chanel Camarena RN * Do you have difficulty dressing or bathing? (5 years old or older) Answer Date of Assessment Author No 11/15/2013 4:01 PM Chanel Camarena RN * Because of a physical, mental, or emotional condition, do you have difficulty doing errands alone such as visiting a doctors office or shopping? (15 years old or older) Answer Date of Assessment Author No 11/15/2013 4:01 PM Chanel Camarena RN documented as of this encounter Mental [...] PM EST Telemedicine Psychiatry Lloyd Gregorio [address] [phone] Dorina Diane MD [address] [place] [address] Health Maintenance Due Date Last Done Comments Albumin/Creatinine Ratio 09/05/2017 09/05/2014 TSH 10/18/2022 10/18/2021, 04/03, 01/28/2021, Additional history exists COVID-19 Vaccine ( season) 2024 05/02/2022, 05/02/2022, 05/28/2021, Additional history exists Influenza Vaccine (FLU shot) (#1) 2024 05/28/2022, 05/01/2021, 06/08/2020, Additional history exists GFR 08/13/2024 08/13/2023, 0 11/2023, 07/30/2023, Additional history exists Depression Monitoring [...] this encounter Medical Devices Implanted Type Area Spanish Translator Device Identifier Shelf Expiration Date Model / Serial / Lot Lens Intraoc 18.5 - [id number] - [id number] Implanted:Qty: 1 on 05/19/2019 by Ignacio Montano MD at OR [facility] Left: Eye [employer]CH [employer]OM[employer] 12/01/2023 [id number] / [id number] / Lens Intraoc 20.5 - [id number] - [id number] Implanted:Qty: 1 on 05/26/2019 by Ignacio Montano MD at OR [facility] Right: Eye [employer]CH [employer]OM[employer] 01/01/2024 [id number] / [id number] / [id number] documented as of this encounter Advance Directives * Full Code (Latest Code Status on File) Date Activated Date Inactivated Comments 11/15/2013 10:55 AM 11/16/2013 4:28 PM This order reflects the patients wishes and were consensually agreed upon. Care Teams Echo Tech Relationship Specialty Start Date End Date Nilton Fuller MD [address] [address] PCP - General Family Medicine 04/14/17 documented as of this encounter
--- OUTSIDE RECORDS SUMMARY | 2024-06-20 23:38 | External Medical Summary | Summary of Care ---
Author Name Unknown Organization [facility] Address [address] [place] [address] Phone [phone] Care Team Providers Care Procurement Forester Name Role Phone Nilton Fuller MD Primary Care Provide r Reason for Visit * Reason Onset Date Comments Referral 06/17/2024 Encounter Details Date Type Department Care Team (Late st Contact Info) Description 06/17/2024 Telephone Urology Emily Thompson [address] [place] [phone] Altagracia Noe PA-C [address] [place] [address] Referral Allergies Active Allergy Reactions Criticality Noted Date [...] as of this encounter (statuses as of 06/17/2024) Medications SENNA PLUS 8.6-50 MG PO TABS [...] TABLET BY MOUTH DAILY 90 Tablet 3 06/17/2024 11:44 AM EST 12/14/2023 Active Pioglitazone HCl 15 MG Oral [...] as of this encounter (statuses as of 06/17/2024) Active Problems Problem Noted Date Diagnosed Date HTN, GOAL BELOW 140/90 06/21/2009 Overview (06/21/2009): Modified per HTN protocol #16. DERMATITIS DUE TO PRESERVATIVES 07/18/2005 ALLERGIC RHINITIS - MIXED TYPE 06/17/2005 EYELID- DERMATITIS 06/17/2005 GERD (gastroesophageal reflux disease) 3 Hypothyroidism 12/16/2002 Intractable migraine 12/16/2002 Overview (11/13/2015): ICD-10 update of inactive term documented as of this encounter (statuses as of 06/17/2024) Resolved Problems Problem Noted Date Diagnosed Date Resolved Date Encounter for examination fo r normal comparison and control in clinical research program 06/28/2018 03/05/2020 Overview (11/19/2020): DO NOT DELETE [facility] DETECT Study: Project # [id number], Mix Maker: Gab Nunes, PhD. SUMMARY: Goal: Establish test [...] contact study staff at ; after hours Mix Maker via the [facility] trim and burr operator . Please contact study team before resolving/deleting from patients problem list. Study phone number: [phone]. Diagnosis changed due to Research Module. Go to Snapshot for study details. Encounter for examination fo r normal comparison and control in clinical research program 06/28/2018 04/03/2022 Overview (11/19/2020): DO NOT DELETE - [facility] DETECT Study: Project # [id number], Mix Maker: Reg Morrison, MS, MPH. SUMMARY: Goal: Establish [...] contact study staff at ; after hours Mix Maker via the [facility] trim and burr operator . - Please contact study team before resolving/deleting from patients problem list. Study phone number: [phone]. Diagnosis changed due to Research Module. Go to Snapshot for study details. Dermatitis 12/16/2002 07/18/2005 HYPERTENSION NOS 12/16/2002 06/21/2009 Overview (06/21/2009): Modified per HTN protocol #16. documented as of this encounter (statuses as of 06/17/2024) Immunizations Name Administration Dates Next Due COVID-19 [...] 10/14/2023 Does the household have a re lar source of income? (Household - for ages [...] of Assessment Author No 11/15/2013 4:01 PM AIDANT Chanel Wong RN * Do you have [...] Assessment Author No 11/15/2013 4:01 PM EDT Diblasi, Chanel, RN documented as of this encounter Mental Status * Because of a physical, mental, or emotional condition, do you have serious difficulty concentrating, remembering, or making decisions? (5 years old or older) Answer Entry Date Author No 11/15/2013 4:01 PM EDT Chanel Wong RN documented in this encounter Miscellaneous Notes * Telephone Encounter - Keyonna Marx, MED ASSIST - 06/17/2024 10:27 AM EST Lmom to call back to schedule a Urology appt. Pt has a referral. documented in this encounter Plan of Treatment Upcoming Encounters Date Type Department Care Team (Late st Contact Info) Description 06/24/2024 2:30 PM EST Telemedicine Psychiatry Lloyd Gregorio [address] [phone] Dorina Diane MD [address] [phone] Health Maintenance Due Date Last Done Comments Albumin/Creatinine Ratio 09/05/2017 09/05/2014 TSH 10/18/2022 10/18/2021, 04/03, 01/28/2021, Additional history exists COVID-19 Vaccine ( season) 2024 05/02/2022, 05/02/2022, 05/28/2021, Additional history exists Influenza Vaccine (FLU shot) (#1) 2024 05/28/2022, 05/01/2021, 06/08/2020, Additional history exists GFR 08/13/2024 08/13/2023, 11/2023, 07/30/2023, Additional history exists Depression Monitoring 02/28/2025 02/29/2024 DXA Scan 01/03/2031 01/04/2024, 10/2020, 01/04/2019, Additional history exists Fecal Occult [...] this encounter Medical Devices Implanted Type Area Bit Sharpener Device Identifier Shelf Expiration Date Model / Serial / Lot Lens Intraoc 18.5 - [id number] - [id number] Implanted:Qty: 1 on 05/19/2019 by Ignacio Montano MD at OR [facility] Left: Eye [employer]USCH [employer] LOMB 12/01/2023 [id number] / [id number] / Lens Intraoc 20.5 - [id number] - [id number] Implanted:Qty: 1 on 05/26/2019 by Ignacio Montano MD at OR [facility] Right: Eye BAUSCH & LOMB 01/01/2024 [id number] / [id number] / [id number] documented as of this encounter Advance Directives * Full Code (Latest Code Status on File) Date Activated Date Inactivated Comments 11/15/2013 10:55 AM 11/16/2013 4:28 PM This order reflects the patients wishes and were consensually agreed upon. Care Teams Procurement Forester Relationship Specialty Start Date End Date Nilton Fuller MD [address] [place] [address] PCP - General Family Medicine 04/14/17 documented as of this encounter
--- OUTSIDE RECORDS SUMMARY | 2024-06-20 23:38 | External Medical Summary | Summary of Care ---
Author Name Unknown Organization [facility] Address [address] [place] [address] Phone [phone] Care Team Providers Care Club Waiter/Waitress Name Role Phone Nilton Fuller MD Primary Care Provide r Encounter Details Date Type Department Care Team (Late st Contact Info) Description 06/20/2024 Population Health External Data Unspecified Department Allergies [...] as of this encounter (statuses as of 06/20/2024) Medications SENNA PLUS 8.6-50 MG PO TABS [...] mouth twice a day 180 Tablet 3 06/17/2024 5:23 PM EST 12/24/2023 Active NIFEdipine ER 60 MG Oral Tablet [...] once daily. 30 Tablet 1 05/16/2024 Active oxyBUTYnin Chloride ER 10 MG Oral Tablet Extended Release 24 Hour (Ditropan XL) Take 1 Tablet by mouth in the morning. 90 Tablet 1 06/20/2024 Active documented as of this encounter (statuses as of 06/20/2024) Active Problems Problem Noted Date Diagnosed Date HTN, GOAL BELOW 140/90 06/21/2009 Overview (06/21/2009): Modified per HTN protocol #16. DERMATITIS DUE TO PRESERVATIVES 07/18/2005 ALLERGIC RHINITIS - MIXED TYPE 06/17/2005 EYELID- DERMATITIS 06/17/2005 GERD (gastroesophageal reflux disease) 3 Hypothyroidism 12/16/2002 Intractable migraine 12/16/2002 Overview (11/13/2015): ICD-10 update of inactive term documented as of this encounter (statuses as of 06/20/2024) Resolved Problems Problem Noted Date Diagnosed Date Resolved Date Encounter for examination fo r normal comparison and control in clinical research program 06/28/2018 03/05/2020 Overview (11/19/2020): DO NOT DELETE [facility] DETECT Study: Project # [id number], Store Protection Specialist: Gab Nunes, PhD. SUMMARY: Goal: Establish test [...] contact study staff at ; after hours Store Protection Specialist via the [facility] welding pantograph machine operator . Please contact study team before resolving/deleting from patients problem list. Study phone number: [phone]. Diagnosis changed due to Research Module. Go to Snapshot for study details. Encounter for examination fo r normal comparison and control in clinical research program 06/28/2018 04/03/2022 Overview (11/19/2020): DO NOT DELETE [facility] Study: Project # [id number], Store Protection Specialist: Reg Morrison, MS, MPH. SUMMARY: Goal: Establish [...] contact study staff at ; after hours Store Protection Specialist via the [facility] welding pantograph machine operator . - Please contact study team before resolving/deleting from patients problem list. Study phone number: [phone]. Diagnosis changed due to Research Module. Go to Snapshot for study details. Dermatitis 12/16/2002 07/18/2005 HYPERTENSION NOS 12/16/2002 06/21/2009 Overview (06/21/2009): Modified per HTN protocol #16. documented as of this encounter (statuses as of 06/20/2024) Immunizations Name Administration Dates Next Due COVID-19 [...] Description 06/24/2024 2:30 PM EST Telemedicine Psychiatry Sultana BurtonLloyd [address] [place] [phone] Dorina Diane MD [address] [...] this encounter Medical Devices Implanted Type Area Shagger Device Identifier Shelf Expiration Date Model / Serial / Lot Lens Intraoc 18.5 - [id number] - [id number] Implanted:Qty: 1 on 05/19/2019 by Ignacio Montano MD at OR [facility] Left: Eye BAUSCH [employer] LOMB 12/01/2023 [id number] / [id number] / Lens Intraoc 20.5 - [id number] - [id number] Implanted:Qty: 1 on 05/26/2019 by Ignacio Montano MD at OR [facility] Right: Eye BAUSCH & LOMB 01/01/2024 [id number] / [id number] / [id number] documented as of this encounter Advance Directives * Full Code (Latest Code Status on File) Date Activated Date Inactivated Comments 11/15/2013 10:55 AM 11/16/2013 4:28 PM This order reflects the patients wishes and were consensually agreed upon. Care Teams Club Waiter/Waitress Relationship Specialty Start Date End Date Nilton Fuller MD [address] [place] [address] PCP - General Family Medicine 04/14/17 documented as of this encounter
--- OUTSIDE RECORDS SUMMARY | 2024-06-20 23:38 | External Medical Summary | Summary of Care ---
Author Name Unknown Organization [facility] Address [address] [place] [address] Phone [phone] Care Team Providers Care Web Content Director Name Role Phone Nilton Fuller MD Primary Care Provide r Reason for Visit * Reason Comments Medication Refill Encounter Details Date Type Department Care Team (Late st Contact Info) Description 06/20/2024 Refill Urogynecology [facility] [address] [place] [address] Yudith Fraga MD [address] [place] [address] Allergies Active Allergy Reactions Criticality Noted Date [...] MG PO TABS 2 po daily 0 6 Active MULTIVITAMIN PO TABS with iron-1 po daily 0 6 Active CALCIUM + D 600-200 MG-UNIT PO TABS Take by mouth daily. 0 0 6 Active LANSOPRAZOLE 15 MG PO TBDP Take [...] mouth 3 times a day as needed. 3 Active Meloxicam 7.5 MG Oral Tablet (Mobic) TAKE ONE TABLET BY MOUTH TWICE A DAY 180 Tablet 3 2 Active Levothyroxine Sodium 112 MCG Oral Tablet (Levoxyl) TAKE 1 TABLET BY MOUTH DAILY 90 Tablet 3 04/18/2024 11:04 AM EDT 4 Active Pantoprazole Sodium 40 MG Oral Tablet Delayed Release (Protonix) TAKE 1 TABLET BY MOUTH DAILY 90 Tablet 3 06/17/2024 11:44 AM EST 4 Active Pioglitazone HCl 15 MG Oral Tablet (Actos) TAKE 1 TABLET BY MOUTH DAILY 90 Tablet 3 03/23/2024 1:27 PM EDT 4 Active Rosuvastatin Calcium 5 MG Oral Tablet (Crestor) TAKE 1 TABLET BY MOUTH DAILY 90 Tablet 3 04/15/2024 7:46 AM EDT 4 Active Valsartan 40 MG Oral Tablet (Diovan) TAKE 1 TABLET BY MOUTH TWICE A DAY 180 Tablet 3 05/09/2024 2:14 PM EDT 4 Active Venlafaxine HCl ER 150 MG Oral Capsule Extended Release 24 Hour (Effexor XR) TAKE 1 CAPSULE BY MOUTH DAILY 90 Capsule 3 03/24/2024 10:52 AM EDT 4 Active Venlafaxine HCl ER 75 MG Oral Capsule Extended Release 24 Hour (Effexor XR) TAKE 1 CAPSULE BY MOUTH DAILY WITH 150MG TO EQUAL TOTAL DAILY DOSE OF 225MG 90 Capsule 3 06/14/2024 6:37 PM EST 4 Active oxyBUTYnin Chloride 5 MG Oral Tablet (Ditropan) take 1 tablet by mouth twice a day 180 Tablet 3 06/17/2024 5:23 PM EST 4 Active NIFEdipine ER 60 MG Oral Tablet Extended Release 24 Hour (Adalat CC) Take one tablet daily 90 Tablet 3 05/13/2024 7:28 AM EDT 4 Active buPROPion HCl ER (XL) 300 MG Oral Tablet Extended Release 24 Hour (Wellbutrin XL) Take 1 Tablet by mouth in the morning. 30 Tablet 3 4 Active Lurasidone HCl 20 MG Oral Tablet (Latuda) Take 1 Tablet by mouth daily. Take with meal once daily. 30 Tablet 1 4 Active oxyBUTYnin Chloride ER 10 MG Oral Tablet Extended Release 24 Hour (Ditropan XL) Take 1 Tablet by mouth in the morning. 90 Tablet 1 4 Active oxyBUTYnin Chloride ER 10 MG Oral Tablet Extended Release 24 Hour (Ditropan XL) Take 1 Tablet by mouth in the morning. 90 Tablet 1 03/28/2024 12:58 PM EDT 4 06/20/20 24 Discontinu ed(Refill) documented as of this encounter (statuses as [...] DELETE [facility] DETECT Study: Project # [id number], Editor Department: Gab Nunes, PhD. SUMMARY: Goal: Establish test [...] contact study staff at ; after hours Editor Department via the [facility] slitting machine operator . Please contact study team before resolving/deleting from patients problem list. Study phone number: [phone]. Diagnosis changed due to Research Module. Go to Snapshot for study details. Encounter for examination fo r normal comparison and control in clinical research program 06/28/2018 04/03/2022 Overview (11/19/2020): DO NOT DELETE - [facility] DETECT Study: Project # [id number], Editor Department: Reg Morrison, MS, MPH. SUMMARY: Goal: Establish [...] contact study staff at ; after hours Editor Department via the [facility] hospital slitting machine operator . - Please contact study team before resolving/deleting from patients problem list. Study phone number: [phone]. Diagnosis changed due to Research Module. Go [...] Chanel Camarena RN documented in this encounter Miscellaneous Notes * Telephone Encounter - Yudith Fraga MD - 06/20/2024 6:04 AM ESTSigned Prescriptions: Disp Refills oxyBUTYnin Chloride ER 10 MG Oral Tablet E*90 Tab*1 Sig: Take 1 Tablet by mouth in the morning.Authorizing Provider: YUDITH FRAGA documented in this encounter Plan of Treatment Upcoming Encounters Date Type Department Care Team (Late st Contact Info) Description 06/24/2024 2:30 PM EST Telemedicine Psychiatry Lloyd Gregorio [address] [phone] Dorina Diane MD [address] [phone] [...] this encounter Medical Devices Implanted Type Area Finance Accounting Internship Device Identifier Shelf Expiration Date Model / Serial / Lot Lens Intraoc 18.5 - [id number] - [id number] Implanted:Qty: 1 on 05/19/2019 by Ignacio Montano MD at OR [facility] Left: Eye BAUSCH & LOMB 12/01/2023 [id number] / [id number] / Lens Intraoc 20.5 - [id number] - [id number] Implanted:Qty: 1 on 05/26/2019 by Ignacio Montano MD at OR [facility] Right: Eye BAUSCH & LOMB 01/01/2024 [id number] / [id number] / [id number] documented as of this encounter Advance Directives * Full Code (Latest Code Status on File) Date Activated Date Inactivated Comments 11/15/2013 10:55 AM 11/16/2013 4:28 PM This order reflects the patients wishes and were consensually agreed upon. Care Teams Web Content Director Relationship Specialty Start Date End Date Nilton Fuller MD [address] [address] PCP - General Family Medicine 04/14/17 documented as of this encounter
[2024-06-21 05:43] LABS: HCO3 ABG 26 mmol/L (19-24); Oxygen Saturation ABG 97.3 % (90-95); PCO2 ABG 36 mmHg (35-46); PO2 ABG 77 mmHg (80-95); pH ABG 7.46 (7.35-7.45)
[2024-06-21 05:45] LABS: Allen Test Pos (Pos)
[2024-06-21] MEDS: LEVOTHYROXINE SODIUM 112 MCG TABLET PO SCH (06:04)
[2024-06-21] MEDS: MICONAZOLE NITRATE POWDER 85 GM EXT PRN (06:04)
[2024-06-21 07:38] LABS: Basophils # (auto) 0.02 K/uL (0.00-0.20); Basophils % (auto) 0.4 %; Eosinophils # (auto) 0.11 K/uL (0.00-0.50); Eosinophils % (auto) 2.4 %; Hematocrit (blood only) 42.2 % (37.0-47.0); Hemoglobin 14.2 g/dl (12.0-16.0); Immature Granulocytes # (auto) 0.03 K/uL (0.01-0.20); Immature Granulocytes % (auto) 0.7 %; Lymphocytes # (auto) 1.33 K/uL (1.20-3.40); Lymphocytes % (auto) 28.9 %; Mean Corpuscular Hemoglobin 31.7 pg (25.0-34.0); Mean Corpuscular Hgb Conc 33.6 g/dL (32.0-36.0); Mean Corpuscular Volume 94.2 fL (80.0-100.0); Monocytes # (auto) 0.67 K/uL (0.11-0.59); Monocytes % (auto) 14.6 %; Neutrophils # (auto) 2.44 K/uL (1.40-6.50); Platelet Count 266 K/uL (130-400); RDW Coefficient of Variation 12.4 % (11.5-14.5); Red Blood Count 4.48 M/uL (4.20-5.40)
[2024-06-21 07:55] LABS: BUN Creatinine Ratio 21.5 (10-20); Calcium 9.5 mg/dl (8.6-10.3); Chol HDL Ratio 2.8 (0-5); Creatinine Clr Calc Pharmacy 47.9 ml/min; Potassium 4.2 mmol/L (3.5-5.1)
[2024-06-21] MEDS: ROSUVASTATIN CALCIUM 5 MG TAB PO SCH (08:02)
[2024-06-21] MEDS: NIFEdipine EXTENDED REL 30 MG TABCR PO SCH (08:03)
[2024-06-21] MEDS: VIBEGRON 75 MG TAB PO SCH (08:03)
[2024-06-21] MEDS: VENLAFAXINE HCL XR 75 MG CAPXR PO SCH (08:03)
[2024-06-21] MEDS: VENLAFAXINE HCL XR 150 MG CAPXR PO SCH (08:03)
[2024-06-21] MEDS: PANTOprazole 40 MG TAB PO SCH (08:04)
[2024-06-21] MEDS: buPROPion XL 300 MG TABCR PO SCH (08:04)
[2024-06-21 08:09] LABS: Thyroid Stimulating Hormone 1.753 uIu/ml (0.300-4.500)
[2024-06-21] MEDS ORDERED: SERTRALINE HCL 50 MG TABLET PO SCH (09:00)
--- NOTE | 2024-06-21 09:32 | Neurology Consultation ---
Date of Consultation June 21, 2024 Assessment & Plan (1) Weakness: History of Present Illness Attending Physician: David Jenkins MD History of Present Illness S: pt well known to me as I see her as outpt neurology pt. I spoke with her sister yesterday and she was having difficulty getting around the house last few months. pt also fell again last month. Pt this morning feeling ok, pt admits her rt toe infection has been a problem and made her balance worse. pt also with continue left side hemispasticity that is baseline and making her walking and balance difficult. mri brain negative and U/A clean. CTA head/neck unremarkable. this morning pt appears to be back to her baseline. 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 She presented via EMS for increased weakness and confusion on the morning of 06/20. Patient lives with her sister, who is also her medical contracts attorney/POA. Per sister, the patient woke up this morning with ambulatory dysfunction and an acute change in cognitive baseline. Patient was repeating the same questions every 15 minutes; this is lasted for approximately 1 hour. No slurred speech or facial droop appreciated this morning. No personal history of stroke, but patient reports she does have a family history of stroke. Patient does have a history of recurrent falls, and sister reports that she has fallen 4 times over the past month. Her ambulatory function has gradually decreased over the past month. Ambulates with a walker at baseline; she has had residual ambulatory difficulty in her left lower extremity ever since her TBI/subarachnoid hemorrhage. However yesterday, she was complaining of right lower extremity deficits. She has also been complaining of increased balance issues for the past 24-48 hours. Patient took her regular morning medicine today; only recent change in medication was that she was started on desmopressin 1 week ago for urinary incontinence. Patient follows with Dr. Luis (Neurology); sister called neurology this morning, and neurology recommended that she have an MRI scheduled or that they should go to the ER if clinical worsening. Patient denies smoking, tobacco use, recent alcohol use. Patient is mildly hypotensive at 107/57 at time of admission; vitals otherwise stable. Allergies Allergy/AdvReac Type Severity Reaction Status Date / Time adhesive Allergy Mild RASH Verified 06/20/24 18:27 esomeprazole Allergy Mild RASH Verified 06/20/24 18:27 gabapentin Allergy Mild RASH Verified 06/20/24 18:27 hydrochlorothiazide Allergy Mild RASH-MICARD Verified 06/20/24 18:27 IS omeprazole Allergy Mild Rash Verified 06/20/24 18:27 Sulfa (Sulfonamide Allergy Mild RASH Verified 06/20/24 18:27 Antibiotics) telmisartan Allergy Mild RASH-MICARD Verified 06/20/24 18:27 IS thimerosal Allergy Unknown POSITIVE Verified 06/20/24 18:27 ALLERGY TEST codeine AdvReac Mild NAUSEA Verified 06/20/24 18:27 propoxyphene AdvReac Mild NAUSEA Verified 06/20/24 18:27 Home Medications Medication Instructions Recorded Confirmed Type meclizine 25 mg tablet 25 mg PO BID PRN dizziness #30 tabs 08/31/23 06/20/24 Rx loperamide 2 mg capsule 2 mg PO Q6H PRN loose stool #14 11/05/23 06/20/24 Rx (Anti-Diarrheal (loperamide)) caps levothyroxine 112 mcg tablet 112 mcg PO DAILY #90 tabs 12/14/23 06/20/24 Rx mirabegron 25 mg tablet,extended 25 mg PO DAILY #90 tabs 12/14/23 06/20/24 Rx release 24 hr (Myrbetriq) rosuvastatin 5 mg tablet (Crestor) 5 mg PO DAILY #90 tabs 12/14/23 06/20/24 Rx valsartan 40 mg tablet 40 mg PO BID #180 tabs 12/14/23 06/20/24 Rx pantoprazole 40 mg tablet,delayed 40 mg PO DAILY #90 tabs 12/23/23 06/20/24 Rx release (Protonix) oxybutynin chloride 5 mg tablet 5 mg PO BID PRN Urinary Retention 01/21/24 06/20/24 History pioglitazone 15 mg tablet 15 mg PO DAILY 01/21/24 06/20/24 History CPAP Machine #1 ea 02/01/24 06/13/24 Rx lorazepam 0.5 mg tablet 0.5 mg PO TID PRN anxiety #90 tabs 02/29/24 06/20/24 Rx nifedipine 60 mg tablet,extended 60 mg PO DAILY 90 days #90 tabs 03/01/2406/20 Rx release acetaminophen 500 mg capsule 500 mg PO HS PRN Pain/Fever 06/13/24 06/20/24 History desmopressin 0.1 mg tablet 0.1 mg PO HS #30 tabs 06/13/24 06/20/24 Rx bupropion HCl 300 mg 24 hr tablet, 300 mg PO QAM 06/20/24 06/20/24 History extended release venlafaxine 150 mg 150 mg PO UD 06/20/24 06/20/24 History capsule,extended release 24 hr venlafaxine 75 mg capsule,extended 75 mg PO UD 06/20/24 06/20/24 History release 24 hr Patient History Medical History Edema of left lower leg 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) From a fall-has urgent orthopedic consult ordered Lumbar disc disease with radiculopathy Increased urinary frequency Basal cell carcinoma right med calf Cellulitis Carpal tunnel syndrome Surgical History S/P blepharoplasty 11/15/13 History of surgical fusion joint History of carpal tunnel repair left 08/2010 History of oral surgery History of tubal ligation Family History Mother Hypothyroidism Dyslipidemia Renal failure Heart failure Skin cancer basal cell Arthritis Father Hypertension Heart disease Dyslipidemia Skin cancer (melanoma) basal cell Melanoma of multiple sites Parkinson disease Sister Multiple sclerosis Brother Polymyositis Arthritis Melanoma of multiple sites Glaucoma Denies family history of Ovarian cancer Breast cancer Social History Smoking Status: Never smoker Second Hand Exposure: No; Hx Alcohol Use: No Hx Substance Use: No Preferred Language: Ukrainian Communication Ability: Effective Visual Impairment: Diminished Hearing Ability: Normal Behavior Analyst Required: No Beliefs That Will Affect Care: None marital status: Current Living Situation: Family Current Living Situation Comment: lives with sister and [id number] current occupational status: employed current occupation: [employer] How many Children do You have: 0 Other Information That Helps Us Care for You: No Feels Safe at Home: Yes Safety Concerns: Feels Safe At This Time Childhood Exposure to Second-Hand Smoke: No Diet: regular caffeine: Yes (1 cup a day) Dental Care, Regularly: Yes Physical Activity Frequency: Does not Exercise Seatbelt Use: always Sunscreen Use: Yes Assistive Devices: Walker Exam (Neuro) Physical Exam: HEENT: normocephalic grossly Neuro: Mental: AOx4, fluent speech, normal comprehension, no apraxia, no L/R confusion, no neglect CN: PERRL, Full EOM, symmetric face, midline T/U/P, grossly full ROM neck Motor: No abnormal movements, increase spasticity left arm and leg t/o. rt side 4+/5 leg t/o and 5/5 rt arm t/o. Coord: intact rt arm. left arm with spasticity can't bend. DTR: 3+ sym b/l , t/o. Gait:deferred. Impression: 74 yo female with known prior TBI/SAH and left hemispaticparesis with recent fall again and difficulty ambulating and balance. MRI brain and labs reassuring. It is likely that pt is having progression of her chronic left spasticity from her stroke and deconditioning and also rt toe infection making her getting around more difficult. no suggestion of new INDUSTRIAL MAINTENANCE REPAIRER HELPER lesion or cause. Recommendations: physical therapy and OT evaluation. I believe she will need inpt rehab avoid hypotension and dehydration. continue supportive care. pt can f/u with me again after she gets release from the inpt rehab. please call again if new question. Chart reviewed I have spent more than 50% educating patient about potential diagnosis and neurological evaluation and coordinating care with patient's treatment team. Total time spent (including chart review and coordination of care): 45 min (this includes chart review). Results & Data Vital Signs (Past 12 Hours) Vital Signs Temp Pulse Pulse Pulse Resp BP Pulse Ox 06/21/24 07:56 06/21/24 07:43 36.7 C 75 16 146/71 H 92 06/21/24 07:06 74 06/21/24 04:04 36.5 C 76 20 126/69 92 06/20/24 23:50 36.6 C 78 20 120/64 92 06/20/24 23:01 77 06/20/24 22:25 78 Pulse Ox O2 Del Method O2 Del Method 06/21/24 07:56 Room Air 06/21/24 07:43 Room Air 06/21/24 07:06 06/21/24 04:04 Room Air 06/20/24 23:50 Room Air 06/20/24 23:01 93 Room Air 06/20/24 22:25 PG Care Time/CCT Total # of Minutes Spent Total Time Spent with Patient: Total time spent is greater than 50% in coordination of care (as documented) at patient's floor/unit and/or counseling patient: Coding Level of Care Code 01528 IN/OBS CONSULT LVL 3,45M Diagnoses Weakness R53.1
[2024-06-21] MEDS: LORazepam 0.5 MG TAB PO PRN (11:52)
--- NOTE | 2024-06-21 12:40 | Hospitalist Progress Note ---
Date of Service June 21, 2024 Assessment & Plan (1) Ambulatory dysfunction: Plan: Patient presented on 06/20 for worsening balance x 24 to 48 hours Difficulty getting out of bed and standing H/o recurrent falls that are increasing in frequency; 4 falls at the past month Ambulates with walker at baseline PT/OT eval pending Fall precautions Case management consulted in the event that patient requires rehab upon discharge (2) Altered mental status: Plan: Per sister, patient exhibited transient confusion on the morning of 06/10 LNK the evening prior Repetitive questioning every 15 minutes x 1 hour; transient, resolved prior to ED arrival A&O x 3 on arrival, and currently Sister reports she has been more easily confused over the past month for an unknown reason No personal h/o stroke, per sister Only recent change in medication was that desmopressin was added 1 week ago for urinary incontinence; also started on sertraline; sodium okay Patient has had gradual decline ever since her TBI; however, given acute onset of balance issues and ambulatory dysfunction, there is concern for vertebral stroke Head CT on arrival without acute findings Head/neck CT angiograms negative Brain MRI negative Echocardiogram pending Dysphagia screen Permissive HTN (*patient has been normotensive/hypotensive in the ED) Neurology consulted. Appreciate input. No new MRI SUPERVISOR lesion or cause. Will likely need PT/OT, rehab. Follow-up with neurology outpatient (3) History of traumatic brain injury: Plan: 07/21/2023 at [facility] trauma services; found down on the floor at the base of her stairs Imaging at the time revealed subarachnoid hemorrhage in the bilateral frontal lobes Residual deficits, mainly in the left upper and lower extremities Plan Disposition: Obs - Admit to [facility] telemetry DNR/DNI Regular diet VTE PPx: Teds (high fall risk) Admission and Anticipated Discharge Date Admission Date: June 20, 2024 Subjective Patient was seen and examined at 10:20 AM. She was alert and oriented x 3. She had no questions or concerns. No new issues that she brought up. Review of Systems Review of Systems: All systems reviewed & are unremarkable except as noted in Subjective Physical Exam Physical Exam: General: Awake, conversant Heart: S1, S2/regular rate and rhythm, no murmur rubs or gallops Lungs: Clear to auscultation bilaterally. Normal effort Abdomen: Soft/nontender/nondistended. No hepatosplenomegaly Extremities: No clubbing/cyanosis. No edema. Right foot dressing on Behavior: Appropriate, cooperative Results & Data Results & Data Vital Signs (Past 12 Hours) Vital Signs Temp Pulse Pulse Resp BP Pulse Ox O2 Del Method 06/21/24 11:37 36.6 C 75 18 112/66 94 Room Air 06/21/24 07:56 Room Air 06/21/24 07:43 36.7 C 75 16 146/71 H 92 Room Air 06/21/24 07:06 74 06/21/24 04:04 36.5 C 76 20 126/69 92 Room Air Laboratory Results Abnormal lab results 06/20/24 06/20/24 06/20/24 Range/Units 13:35 19:20 20:48 WBC (4.8-10.8) K/ul MPV 9.0 L (9.4-12.4) fL Emanuel # (Auto) 0.62 H (0.11-0.59) K/uL ABG pH (7.35-7.45) ABG pO2 (80-95) mmHg ABG HCO3 (19-24) mmol/L ABG O2 Saturation (90-95) % ABG Base Excess (-9-1.8) mEq/L Sodium (136-145) mmol/L BUN 24 H (6-23) mg/dl BUN/Creatinine Ratio 24.5 H (10-20) Glucose (70-99(Fasting)) mg/dl POC Glucose 109 H (70-99) mg/dl Ur Specific [place] 1.043 H (1.000-1.030) 06/21/24 06/21/24 Range/Units 05:30 06:53 WBC 4.60 L (4.8-10.8) K/ul MPV 9.0 L (9.4-12.4) fL Emanuel # (Auto) 0.67 H (0.11-0.59) K/uL ABG pH 7.46 H (7.35-7.45) ABG pO2 77 L (80-95) mmHg ABG HCO3 26 H (19-24) mmol/L ABG O2 Saturation 97.3 H (90-95) % ABG Base Excess 2.0 H (-9-1.8) mEq/L Sodium 133 L (136-145) mmol/L BUN (6-23) mg/dl BUN/Creatinine Ratio 21.5 H (10-20) Glucose 112 H (70-99(Fasting)) mg/dl POC Glucose (70-99) mg/dl Ur Specific [place] (1.000-1.030) PG Care Time/CCT Total # of Minutes Spent Total Time Spent with Patient: Total time spent is greater than 50% in coordination of care (as documented) at patient's floor/unit and/or counseling patient: Coding Level of Care Code 51045 SUB INP/OBS CARE 2/35MIN Diagnoses Ambulatory dysfunction R26.2 Altered mental status R41.82 History of traumatic brain injury Z87.820
[2024-06-21] MEDS: ACETAMINOPHEN 325 MG TAB PO PRN (16:04)
[2024-06-21 16:21] LABS: Estimated Average Glucose 126 mg/dl
[2024-06-21] MEDS: SENNA 8.6 MG TAB PO PRN (20:35)
[2024-06-22 06:59] LABS: Basophils # (auto) 0.03 K/uL (0.00-0.20); Basophils % (auto) 0.4 %; Eosinophils # (auto) 0.17 K/uL (0.00-0.50); Eosinophils % (auto) 2.5 %; Hematocrit (blood only) 41.8 % (37.0-47.0); Hemoglobin 14.3 g/dl (12.0-16.0); Immature Granulocytes # (auto) 0.04 K/uL (0.01-0.20); Immature Granulocytes % (auto) 0.6 %; Lymphocytes # (auto) 1.58 K/uL (1.20-3.40); Lymphocytes % (auto) 23.7 %; Mean Corpuscular Hgb Conc 34.2 g/dL (32.0-36.0); Mean Corpuscular Volume 93.5 fL (80.0-100.0); Mean Platelet Volume 8.9 fL (9.4-12.4); Monocytes # (auto) 0.78 K/uL (0.11-0.59); Monocytes % (auto) 11.7 %; Neutrophils # (auto) 4.07 K/uL (1.40-6.50); Neutrophils % (auto) 61.1 %; Platelet Count 278 K/uL (130-400); RDW Coefficient of Variation 12.1 % (11.5-14.5); RDW Standard Deviation 41.9 fL (36.4-46.3); Red Blood Count 4.47 M/uL (4.20-5.40); White Blood Count 6.67 K/ul (4.8-10.8)
[2024-06-22 07:14] LABS: BUN Creatinine Ratio 20.2 (10-20); Calcium 9.3 mg/dl (8.6-10.3); Creatinine Clr Calc Pharmacy 48.1 ml/min; Potassium 4.1 mmol/L (3.5-5.1)
[2024-06-22] MEDS: POLYETHYLENE (MIRALAX) 17 GM PACK PO PRN (09:27)
[2024-06-22] MEDS: ONDANSETRON INJ 2 MG/ML 2 ML VIAL IV PRN (09:27)
--- NOTE | 2024-06-22 13:59 | Hospitalist Progress Note ---
Date of Service June 22, 2024 Assessment & Plan (1) Ambulatory dysfunction: Plan: Patient presented on 06/20 for worsening balance x 24 to 48 hours Difficulty getting out of bed and standing H/o recurrent falls that are increasing in frequency; 4 falls at the past month Ambulates with walker at baseline PT/OT evaluations appreciated. Recommends rehab Fall precautions Case management working on placement (2) Altered mental status: Plan: Per sister, patient exhibited transient confusion on the morning of 06/10 LNK the evening prior Repetitive questioning every 15 minutes x 1 hour; transient, resolved prior to ED arrival A&O x 3 on arrival, patient does acknowledge she felt confused Sister reports she has been more easily confused over the past month for an unknown reason Patient has had gradual decline ever since her TBI; however, given acute onset of balance issues and ambulatory dysfunction, there is concern for vertebral stroke Head CT on arrival without acute findings Head/neck CT angiograms negative Brain MRI negative Echocardiogram negative Dysphagia screen Permissive HTN (*patient has been normotensive/hypotensive in the ED) Neurology involved. Appreciate input. (3) History of traumatic brain injury: Plan: 07/21/2023 at [facility] trauma services; found down on the floor at the base of her stairs Imaging at the time revealed subarachnoid hemorrhage in the bilateral frontal lobes Residual deficits, mainly in the left upper and lower extremities Plan Disposition: Obs - Admit to [facility] telemetry DNR/DNI Regular diet once patient passes dysphagia screen VTE PPx: Teds (high fall risk) [facility]mission and Anticipated Discharge Date Admission Date: June 20, 2024 Subjective Patient was seen and examined at 10:15 AM. She is aware that she will need to go to rehab after this hospitalization. She denies any chest pain or shortness of breath. Review of Systems Review of Systems: All systems reviewed & are unremarkable except as noted in Subjective Physical Exam Physical Exam: General: Awake, conversant Heart: S1, S2/regular rate and rhythm, no murmur rubs or gallops Lungs: Clear to auscultation bilaterally. Normal effort Abdomen: Soft/nontender/nondistended. No hepatosplenomegaly Extremities: No clubbing/cyanosis. No edema. Right foot dressing on Behavior: Appropriate, cooperative Results & Data Results & Data Vital Signs (Past 12 Hours) Vital Signs Temp Pulse Pulse Resp BP Pulse Ox O2 Del Method 06/22/24 11:35 36.7 C 74 20 138/74 91 Room Air 06/22/24 07:56 Room Air 06/22/24 07:46 36.6 C 78 16 152/78 H 91 Room Air 06/22/24 07:22 76 06/22/24 03:37 36.5 C 78 18 124/66 91 Room Air Laboratory Results Abnormal lab results 06/21/24 06/22/24 Range/Units 06:53 06:18 MPV 8.9 L (9.4-12.4) fL Jones # (Auto) 0.78 H (0.11-0.59) K/uL BUN/Creatinine Ratio 20.2 H (10-20) Glucose 130 H (70-99(Fasting)) mg/dl Hemoglobin A1c 6.0 H (4.5-5.6) % PG Care Time/CCT Total # of Minutes Spent Total Time Spent with Patient: Total time spent is greater than 50% in coordination of care (as documented) at patient's floor/unit and/or counseling patient: Coding Level of Care Code 64427 SUB INP/OBS CARE 2/35MIN Diagnoses Ambulatory dysfunction R26.2 Altered mental status R41.82 History of traumatic brain injury Z87.820
[2024-06-22] MEDS: DOCUSATE SODIUM 100 MG CAP PO ONE (15:03)
[2024-06-22] MEDS: DOCUSATE SODIUM 100 MG CAP PO SCH (20:51)
[2024-06-23 06:23] LABS: BUN Creatinine Ratio 20.8 (10-20); Calcium 9.6 mg/dl (8.6-10.3); Creatinine Clr Calc Pharmacy 44.6 ml/min; Potassium 4.5 mmol/L (3.5-5.1)
[2024-06-23 06:25] LABS: Basophils # (auto) 0.04 K/uL (0.00-0.20); Basophils % (auto) 0.5 %; Eosinophils # (auto) 0.19 K/uL (0.00-0.50); Eosinophils % (auto) 2.5 %; Hematocrit (blood only) 43.3 % (37.0-47.0); Hemoglobin 14.6 g/dl (12.0-16.0); Immature Granulocytes # (auto) 0.05 K/uL (0.01-0.20); Immature Granulocytes % (auto) 0.6 %; Lymphocytes # (auto) 1.58 K/uL (1.20-3.40); Lymphocytes % (auto) 20.4 %; Mean Corpuscular Hemoglobin 31.7 pg (25.0-34.0); Mean Corpuscular Hgb Conc 33.7 g/dL (32.0-36.0); Mean Corpuscular Volume 94.1 fL (80.0-100.0); Monocytes # (auto) 1.01 K/uL (0.11-0.59); Neutrophils # (auto) 4.87 K/uL (1.40-6.50); Platelet Count 282 K/uL (130-400); RDW Coefficient of Variation 12.2 % (11.5-14.5); RDW Standard Deviation 42.6 fL (36.4-46.3); White Blood Count 7.74 K/ul (4.8-10.8)
[2024-06-23 11:18] VITALS: BP 111/70; PULSE 77; RESP 16; TEMP 97.5; O2SAT 93
--- NOTE | 2024-06-23 12:12 | Discharge Summary ---
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 She presented via EMS for increased weakness and confusion on the morning of 06/20. Patient lives with her sister, who is also her medical roustabout crew pusher/POA. Per sister, the patient woke up this morning with ambulatory dysfunction and an acute change in cognitive baseline. Patient was repeating the same questions every 15 minutes; this is lasted for approximately 1 hour. No slurred speech or facial droop appreciated this morning. No personal history of stroke, but patient reports she does have a family history of stroke. Patient does have a history of recurrent falls, and sister reports that she has fallen 4 times over the past month. Her ambulatory function has gradually decreased over the past month. Ambulates with a walker at baseline; she has had residual ambulatory difficulty in her left lower extremity ever since her TBI/subarachnoid hemorrhage. However yesterday, she was complaining of right lower extremity deficits. She has also been complaining of increased balance issues for the past 24-48 hours. Patient took her regular morning medicine today; only recent change in medication was that she was started on desmopressin 1 week ago for urinary incontinence. Patient follows with Dr. Luis (Neurology); sister called neurology this morning, and neurology recommended that she have an MRI scheduled or that they should go to the ER if clinical worsening. Patient denies smoking, tobacco use, recent alcohol use. Patient is mildly hypotensive at 107/57 at time of admission; vitals otherwise stable. ED course: NSS 500 mL IV ROS: Patient endorses headache (posterior), ambulatory dysfunction, feeling off balance, lower extremity deficits (normally it is her left lower extremity, but yesterday it was her right lower extremity), numbness and tingling in the left arm (chronic), and acute onset of confusion. Patient denies fever, chills, night sweats, change in vision, slurred speech, facial droop, chest pain, chest palpitations, pleuritic CP, SOB, cough, congestion, abdominal pain, N/V/D, changes in urinary bowel habits, burning with urination, or blood in the urine or stool. Admission Exam Per Admitting Provider General: no acute distress; pleasant affect; non-toxic appearing; well- nourished; cooperative; SpO2 93% on RA HEENT: normocephalic, atraumatic; no scleral icterus; PERRLA; vision and hearing intact; patient demonstrates to be the ability to smile, frown, and lift eyebrows without unilateral deficits; patient demonstrates ability to protrude and wiggle tongue bilaterally without deficits Neck: supple; no lymphadenopathy; trachea midline; patient demonstrates ability to shrug shoulders against resistance and rotate neck bilaterally without deficits (does note some pain on turning her head to the left, which is not new for her) Skin: warm, dry without signs of tenting; no cyanosis; no rashes, bruising, lesions, or erythema noted CV: chest wall NTP; RRR; S1/S2 normal; no murmurs/rubs/gallops; pulses intact and symmetric at radial, DP, and PT Lungs: no acute respiratory distress; symmetrical chest wall expansion; clear breath sounds across all lung preston w/o adventitious sounds; no wheezing ABD: Soft, NTP; BS present; no rebound/guarding; no distention MSK: no tics or fasciculations; no edema noted in the LEs b/l, nonerythematous; 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 Needs wound care and podiatry follow-up Discharge Exam General: Awake, conversant Heart: S1, S2/regular rate and rhythm, no murmur rubs or gallops Lungs: Clear to auscultation bilaterally. Normal effort Abdomen: Soft/nontender/nondistended. No hepatosplenomegaly Extremities: No clubbing/cyanosis. No edema. Right foot dressing on Behavior: Appropriate, cooperative Discharge Data Allergies Allergy/AdvReac Type Severity Reaction Status Date / Time adhesive Allergy Mild RASH Verified 06/20/24 18:27 esomeprazole Allergy Mild RASH Verified 06/20/24 18:27 gabapentin Allergy Mild RASH Verified 06/20/24 18:27 hydrochlorothiazide Allergy Mild RASH-MICARD Verified 06/20/24 18:27 IS omeprazole Allergy Mild Rash Verified 06/20/24 18:27 Sulfa (Sulfonamide Allergy Mild RASH Verified 06/20/24 18:27 Antibiotics) telmisartan Allergy Mild RASH-MICARD Verified 06/20/24 18:27 IS thimerosal Allergy Unknown POSITIVE Verified 06/20/24 18:27 ALLERGY TEST codeine AdvReac Mild NAUSEA Verified 06/20/24 18:27 propoxyphene AdvReac Mild NAUSEA Verified 06/20/24 18:27 Consultations 06/20/24 15:26 ED Decision to Admit Stat 06/20/24 23:05 Consult Neurology Routine 06/22/24 14:04 Consult Podiatry Routine Ordered Studies Chest X-Ray 06/20/24 13:28 XR chest 1V portable CLINICAL HISTORY: Chest pain, nonspecific COMPARISON STUDY: Chest radiograph January. Chest CT May 18, 2024. FINDINGS: Postoperative findings within the spine are incidentally noted. Lung volumes are normal. Lungs are clear. There is no pneumothorax or pleural effusion. Cardiac size is stable. There is a small hiatal hernia. There is no evidence for pulmonary edema. IMPRESSION: No acute cardiopulmonary findings. ACT 112: Negative or not required by law. Electronically signed by: Filiberto Butler M.D. 06/20/2024 2:[address] 06/20/24 13:29 CT OF THE HEAD WITHOUT CONTRAST CLINICAL HISTORY: Altered mental status. COMPARISON STUDY: Head CT May 18, 2024. CT DOSE: 625.8 mGy.cm TECHNIQUE: Helical axial images of the head were obtained without IV contrast. Automated exposure control was utilized for the study. A dose lowering technique was utilized adhering to the principles of ALARA. FINDINGS: No acute intracranial hemorrhage, midline shift or mass effect is p resent. The ventricular system is stable. White matter hypodensities are unchanged and favor small vessel disease. The basal cisterns are patent. No extra-axial collections are present. There are no findings to suggest acute dural sinus thrombosis or acute territorial infarct. No significant calvarial abnormalities are present. Visualized portions of the sinuses and mastoid air cells are clear. IMPRESSION: No acute intracranial findings. No change in appearance of the brain. ACT 112: Negative or not required by law. Electronically signed by: Filiberto Butler M.D. 06/20/2024 2:26 PM Brain MRI 06/20/24 16:28 Exam(s): MRI HEAD Without Contrast EXAM: MR Head Without Intravenous Contrast CLINICAL HISTORY: Reason for exam: Off balance; RLE deficits; vertebral CVA r/o. TECHNIQUE: Magnetic resonance images of the head/brain without intravenous contrast in multiple planes. COMPARISON: Prior head CT from June 20, 2024. FINDINGS: Brain: Moderate nonspecific white matter changes. No mass. No hemorrhage. No acute infarct. The flow voids of the base of the brain are intact. Ventricles: Moderate ventriculomegaly. Bones/joints: Unremarkable. No acute fracture. Sinuses: Unremarkable as visualized. No acute sinusitis. Mastoid air cells: Unremarkable as visualized. No mastoid effusion. Orbits: Bilateral lens replacements. IMPRESSION: No evidence of acute intracranial pathology. Electronically signed by: Lizzette Mistry MD 06/20/24 22:45 PM Head CTA 06/20/24 16:32 EXAM: CT Angiography Head With Intravenous Contrast INDICATION: Off balance. Right lower extremity deficit. TECHNIQUE: Axial computed tomographic angiography images of the head with intravenous contrast. Sagittal and coronal reformatted images were created and reviewed. This CT exam was performed using one or more of the following dose reduction techniques: automated exposure control, adjustment of the mA and/or kV according to patient size, and/or use of iterative reconstruction technique. MIP reconstructed images were created and reviewed. CONTRAST: 117 ml of Optiray 320 was administered intravenously. COMPARISON: CT head 05/18/2024 FINDINGS: Right internal carotid artery: Diffuse atherosclerosis. Intracranial segment is patent with no significant stenosis. No aneurysm. Right anterior cerebral artery: No abnormality noted. No occlusion or significant stenosis. No aneurysm. Right middle cerebral artery: No abnormality noted. No occlusion or significant stenosis. No aneurysm. Right posterior cerebral artery: No abnormality noted. No occlusion or significant stenosis. No aneurysm. Right vertebral artery: No significant abnormality noted. Left internal carotid artery: Diffuse atherosclerosis. Intracranial segment is patent with no significant stenosis. No aneurysm. Left anterior cerebral artery: No abnormality noted. No occlusion or significant stenosis. No aneurysm. Left middle cerebral artery: No abnormality noted. No occlusion or significant stenosis. No aneurysm. Left posterior cerebral artery: No abnormality noted. No occlusion or significant stenosis. No aneurysm. Left vertebral artery: Small focal calcified plaque left vertebral artery without stenosis. No occlusion. Basilar artery: No abnormality noted. No occlusion or significant stenosis. No aneurysm. Other vasculature: Patent dural venous sinuses. Brain and extra-axial spaces: There is age appropriate cortical atrophy and chronic ischemic periventricular white matter hypodensity. No acute infarct, hemorrhage or mass noted. Orbits: Incidental right optic drusen. IMPRESSION: 1. There is minimal atherosclerotic plaque in the intracranial left vertebral artery. No large vessel occlusion, aneurysm or dissection. 2. Cerebral atrophy. No acute changes. ACT 112: Negative or not required by law. Electronically signed by Kadi Yen 06-20-2024 6:09 PM Neck CTA 06/20/24 16:32 EXAM: CT Angiography Neck With Intravenous Contrast INDICATION: Off balance. Right lower extremity deficits. TECHNIQUE: Routine carotid CT angiography protocol was performed with intravenous contrast. NASCET criteria using the distal ICAs for comparison were used for evaluation of stenoses. Sagittal and coronal reformatted images were created and reviewed. This CT exam was performed using one or more of the following dose reduction techniques: automated exposure control, adjustment of the mA and/or kV according to patient size, and/or use of iterative reconstruction technique. MIP reconstructed images were created and reviewed. CONTRAST: 117ml of Optiray 320 was administered intravenously. COMPARISON: None. FINDINGS: VASCULATURE: Right common carotid artery: No abnormality noted. No occlusion or significant stenosis. No dissection. Right internal carotid artery: Markedly tortuous. Extracranial segment is patent with no occlusion or significant stenosis. No dissection. Right external carotid artery: No abnormality noted. No occlusion. Right vertebral artery: No abnormality noted. No occlusion or significant stenosis. No dissection. Left common carotid artery: No abnormality noted. No occlusion or significant stenosis. No dissection. Left internal carotid artery: Minimal calcific plaque at the bulb and in the proximal segment.. Extracranial segment is patent with no occlusion or significant stenosis. No dissection. Left external carotid artery: No abnormality noted. No occlusion. Left vertebral artery: Dominant. No occlusion or significant stenosis. No dissection. NECK: Bones/joints: No acute abnormality noted. Multilevel anterior fusion hardware noted. No acute osseous abnormality.. Soft tissues: No abnormality noted. Lung apices: 3 mm noncalcified left apical pulmonary nodule image 141 series 4. Subpleural 3 mm left upper lobe nodule image 125. CAROTID STENOSIS REFERENCE USING NASCET CRITERIA: % ICA stenosis = (1 - narrowest ICA diameter/diameter of distal cervical ICA) x 100. Mild - <50% stenosis. Moderate - 50-69% stenosis. Severe - 70-94% stenosis. Near occlusion - 95-99% stenosis. Occluded - 100% stenosis. IMPRESSION: 1. No large vessel occlusion, aneurysm or dissection of the arteries of the neck. 2. No significant internal carotid stenosis. ACT 112: Negative or not required by law. Electronically signed by Kadi Yen 06-20-2024 6:06 PM 06/20/24 13:29 CT head/brain wo con Stat 06/20/24 16:28 MR brain wo con Urgent 06/20/24 16:32 CT angio head w con Routine CT angio neck with con Routine Hospital Course (1) Ambulatory dysfunction: Patient presented on 06/20 for worsening balance x 24 to 48 hours Difficulty getting out of bed and standing H/o recurrent falls that are increasing in frequency; 4 falls at the past month Ambulates with walker at baseline PT/OT evaluations appreciated. Recommends rehab (2) Altered mental status: Per sister, patient exhibited transient confusion on the morning of 06/10 LNK the evening prior Repetitive questioning every 15 minutes x 1 hour; transient, resolved prior to ED arrival A&O x 3 on arrival, patient does acknowledge she felt confused Sister reports she has been more easily confused over the past month for an unknown reason Patient has had gradual decline ever since her TBI; however, given acute onset of balance issues and ambulatory dysfunction, there was concern for vertebral stroke Head CT on arrival without acute findings Head/neck CT angiograms negative Brain MRI negative Echocardiogram negative Dysphagia screen Permissive HTN (*patient has been normotensive/hypotensive in the ED) Neurology involved. Appreciate input. (3) History of traumatic brain injury: 07/21/2023 at [facility] [place] trauma [facility]; found down on the floor at the base of her stairs Imaging at the time revealed subarachnoid hemorrhage in the bilateral frontal lobes Residual deficits, mainly in the left upper and lower extremities (4) Contusion of right great toe with damage to nail, initial encounter: Seen in consultation by podiatry and wound care Podiatry recommended mupirocin and bandage Will need follow-up with podiatry outpatient Plan [facility] Total Time Total Time Spent Total Time Spent (In Minutes): 35 Discharge Plan Discharge Items Patient Disposition: Transfer [facility] Reason For Visit: AMBULATORY DYSFUNCTION, VERTEBRAL STROKE WORKUP Discharge Diagnosis: Ambulatory dysfunction with recurrent falls 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 Advised to follow-up with podiatry in 2 weeks Per podiatry recommendation, use mupirocin and a bandage on the right great toe. Pending Studies at Discharge: No Stand-Alone Forms: [facility] Skilled Items Patient informed of condition?: No DNR: Yes Discharge Level of Care: Skilled Communicable Disease: No Discharge Prognosis: Stable Lines: None Urinary Catheter: No Medications and DC Order Prescriptions: Continued meclizine 25 mg tablet 25 mg PO BID PRN (Reason: dizziness) Qty: 30 3RF valsartan 40 mg tablet 40 mg PO BID Qty: 180 3RF rosuvastatin [Crestor] 5 mg tablet 5 mg PO DAILY Qty: 90 3RF Myrbetriq 25 mg tablet extended release 24 hr 25 mg PO DAILY Qty: 90 3RF levothyroxine 112 mcg tablet 112 mcg PO DAILY Qty: 90 3RF pantoprazole [Protonix] 40 mg tablet,delayed release (DR/EC) 40 mg PO DAILY Qty: 90 3RF (DME) CPAP Machine Misc .Route Qty: 1 0RF Rx Instructions: Discontinue oxygen and CPAP lorazepam 0.5 mg tablet 0.5 mg PO TID PRN (Reason: anxiety) Qty: 90 5RF nifedipine 60 mg tablet extended release 60 mg PO DAILY 90 Days Qty: 90 3RF oxybutynin chloride 5 mg tablet 5 mg PO BID PRN (Reason: Urinary Retention) pioglitazone 15 mg tablet 15 mg PO DAILY loperamide [Anti-Diarrheal (loperamide)] 2 mg capsule 2 mg PO Q6H PRN (Reason: loose stool) Qty: 14 2RF acetaminophen 500 mg capsule 500 mg PO HS PRN (Reason: Pain/Fever) desmopressin 0.1 mg tablet 0.1 mg PO HS Qty: 30 3RF bupropion HCl 300 mg tablet extended release 24 hr 300 mg PO QAM venlafaxine 75 mg capsule,extended release 24hr 75 mg PO UD Rx Instructions: Take 75mg w/ 150mg to equal 225mg every morning venlafaxine 150 mg capsule,extended release 24hr 150 mg PO UD Rx Instructions: Take 150mg w/ 75mg to equal 225mg every morning Discharge Orders: Discharge Order (Routine); Ordered 06/23/24 Ordered By: David Velarde/Other Patient Handouts: Prediabetes, 5 Steps for Eating Healthier Admission Data Admit Date/Time: 06/20/24 16:35 Attending Provider: David Jenkins Admit Provider: Lewis Castañeda Primary Care Provider: Nilton Fuller Other Providers: Lewis Castañeda; Suhas Luis; [facility]; Migue Ureña Other Interventions: Discharge Summary Assessment (RN) Last Done: 06/23/24 12:14
--- NOTE | 2024-06-23 12:17 | Podiatry Consultation ---
Date of Consultation June 23, 2024 Assessment & Plan (1) Contusion of right great toe with damage to nail, initial encounter: (2) Cellulitis of right toe: (3) Other specified peripheral vascular diseases: Plan Patient was examined and evaluated. We discussed treatment of her right great toe moving forward. She would benefit from continued monitoring of the toe. She should perform wound care with the rehab center she is being discharged to. This could be as simple as mupirocin and an adhesive bandage. The nail may need to be removed if she fails to heal moving forward. She is already following up with podiatry outpatient and they should be able to handle this. If they fail to see her, we are always happy to take her on as well. [facility] likely has on staff wound care able to handle this, including removal of the nail in the short-term if required. She should be able to discharge to rehab today without any delay. Thank you for the consult, we are always happy to help out when possible. History of Present Illness Reason for Consultation: Right great toe infection Attending Physician: David Jenkins MD History of Present Illness Patient seen at bedside. She is currently a poor historian. She is unsure of the day and states that she was supposed to be discharged several days ago, was supposed to be at [facility], and then was supposed to be headed to rehab. She is unsure what her current plan is but states that she has not been seen in "3 days". She is initially agitated and admits to pain to the right great toe especially with dressing change, however, she is less agitated after further conversation. She is unsure how long her toe has been bad for but states that it has gotten more painful over the last 3 months or so. At various points she states she did have an injury and did not have an injury. She does follow with a local podiatry group for nail care on a regular basis. She denies any systemic signs or symptoms of infection and states that she feels good overall. Allergies Allergy/AdvReac Type Severity Reaction Status Date / Time adhesive Allergy Mild RASH Verified 06/20/24 18:27 esomeprazole Allergy Mild RASH Verified 06/20/24 18:27 gabapentin Allergy Mild RASH Verified 06/20/24 18:27 hydrochlorothiazide Allergy Mild RASH-MICARD Verified 06/20/24 18:27 IS omeprazole Allergy Mild Rash Verified 06/20/24 18:27 Sulfa (Sulfonamide Allergy Mild RASH Verified 06/20/24 18:27 Antibiotics) telmisartan Allergy Mild RASH-MICARD Verified 06/20/24 18:27 IS thimerosal Allergy Unknown POSITIVE Verified 06/20/24 18:27 ALLERGY TEST codeine AdvReac Mild NAUSEA Verified 06/20/24 18:27 propoxyphene AdvReac Mild NAUSEA Verified 06/20/24 18:27 Home Medications Medication Instructions Recorded Confirmed Type meclizine 25 mg tablet 25 mg PO BID PRN dizziness #30 tabs 08/31/23 06/20/24 Rx loperamide 2 mg capsule 2 mg PO Q6H PRN loose stool #14 11/05/23 06/20/24 Rx (Anti-Diarrheal (loperamide)) caps levothyroxine 112 mcg tablet 112 mcg PO DAILY #90 tabs 12/14/23 06/20/24 Rx mirabegron 25 mg tablet,extended 25 mg PO DAILY #90 tabs 12/14/23 06/20/24 Rx release 24 hr (Myrbetriq) rosuvastatin 5 mg tablet (Crestor) 5 mg PO DAILY #90 tabs 12/14/23 06/20/24 Rx valsartan 40 mg tablet 40 mg PO BID #180 tabs 12/14/23 06/20/24 Rx pantoprazole 40 mg tablet,delayed 40 mg PO DAILY #90 tabs 12/23/23 06/20/24 Rx release (Protonix) oxybutynin chloride 5 mg tablet 5 mg PO BID PRN Urinary Retention 01/21/24 06/20/24 History pioglitazone 15 mg tablet 15 mg PO DAILY 01/21/24 06/20/24 History CPAP Machine #1 ea 02/01/24 06/13/24 Rx lorazepam 0.5 mg tablet 0.5 mg PO TID PRN anxiety #90 tabs 02/29/24 06/20/24 Rx nifedipine 60 mg tablet,extended 60 mg PO DAILY 90 days #90 tabs 03/01/24 06/20/24 Rx release acetaminophen 500 mg capsule 500 mg PO HS PRN Pain/Fever 06/13/24 06/20/24 History desmopressin 0.1 mg tablet 0.1 mg PO HS #30 tabs 06/13/24 06/20/24 Rx bupropion HCl 300 mg 24 hr tablet, 300 mg PO QAM 06/20/24 06/20/24 History extended release venlafaxine 150 mg 150 mg PO UD 06/20/24 06/20/24 History capsule,extended release 24 hr venlafaxine 75 mg capsule,extended 75 mg PO UD 06/20/24 06/20/24 History release 24 hr Patient History Medical History Edema of left lower leg 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) From a fall-has urgent orthopedic consult ordered Lumbar disc disease with radiculopathy Increased urinary frequency Basal cell carcinoma right med calf Cellulitis Carpal tunnel syndrome Surgical History S/P blepharoplasty 11/15/13 History of surgical fusion joint History of carpal tunnel repair left 08/2010 History of oral surgery History of tubal ligation Family History Mother Hypothyroidism Dyslipidemia Renal failure Heart failure Skin cancer basal cell Arthritis Father Hypertension Heart disease Dyslipidemia Skin cancer (melanoma) basal cell Melanoma of multiple sites Parkinson disease Sister Multiple sclerosis Brother Polymyositis Arthritis Melanoma of multiple sites Glaucoma Denies family history of Ovarian cancer Breast cancer Social History Smoking Status: Never smoker Second Hand Exposure: No; Hx Alcohol Use: No Hx Substance Use: No Preferred Language: Dutch Communication Ability: Effective Visual Impairment: Diminished Hearing Ability: Normal Personal Attendant Required: No Beliefs That Will Affect Care: None marital status: Current Living Situation: Family Current Living Situation Comment: lives with sister and [id number] current occupational status: employed current occupation: [employer] How many Children do You have: 0 Feels Safe at Home: Yes Childhood Exposure to Second-Hand Smoke: No Diet: regular caffeine: Yes (1 cup a day) Dental Care, Regularly: Yes Physical Activity Frequency: Does not Exercise Seatbelt Use: always Sunscreen Use: Yes Assistive Devices: Cane and Walker Review of Systems Review of Systems: All systems reviewed & are unremarkable except as noted in HPI & below Constitutional: no fever, no chills and no fatigue Eyes: no problem reported Ear, Nose, Mouth, Throat: no problem reported Respiratory: no problem reported Cardiovascular: + edema; no problem reported Gastrointestinal: no nausea, no vomiting and no problem reported Genitourinary: no problem reported Musculoskeletal: no problem reported Integumentary: + non-healing lesions, + erythema and + nail changes Neurologic: + numbness and + paresthesia; no localiz ed weakness and no generalized weakness Psychiatric: no problem reported Physical Exam Physical Exam: Lower extremity focused exam: DP/PT pulses nonpalpable. CFT is brisk to the digits. Advanced trophic changes are noted to the nails bilaterally. Right hallux is erythematous locally with no ascending cellulitis appreciated. Her toe does appear contused, likely consistent with some recent trauma. The nail plate is loosened with no underlying purulent drainage. The nail plate is largely detached distally though no active bleeding is noted. Scant serous drainage is noted to the dressing and to the toe. Pain is noted on palpation and physical exam. Constitutional: WD/WN, vitals as above + ill appearing and average body habitus Eyes: PERRL, conjunctivae normal, anicteric sclerae ENMT: external ear and nose normal, oropharynx normal Neck: trachea midline, no thyromegaly normal visual inspection Respiratory: normal respiratory effort; no respiratory distress Cardiovascular: Rate/Rhythm: regular rate and regular rhythm Vessels: + posterior tibial pulses abnormal and + dorsalis pedis pulses abnormal Chest (Breasts): Chest: normal inspection of chest Gastrointestinal (Abdomen): Inspection/Auscultation: abdomen normal to inspection Percussion/Palpation: + abdomen tender and abdomen soft Musculoskeletal: no cyanosis or clubbing, extremities motor strength 5/5 Head/Neck/Chest: normocephalic and head atraumatic Extremities: extremities normal to inspection Skin: + skin atrophy, + dry skin, + nail abnor mality, + nails discolored and + nails dystrophic Neurologic: awake; no focal motor deficits Psychiatric: Orientation: alert and oriented to person; + not oriented to place and + not oriented to time (Aware that it is June but unable to place the date/day.) Results & Data Vital Signs (Past 12 Hours) Vital Signs Temp Pulse Pulse Resp BP Pulse Ox O2 Del Method 06/23/24 11:18 36.4 C L 77 16 111/70 93 Nasal Cannula 06/23/24 07:27 36.6 C 76 18 109/61 94 Nasal Cannula 06/23/24 07:15 Room Air 06/23/24 07:02 72 06/23/24 06:07 88 L Nasal Cannula 06/23/24 06:07 96 Nasal Cannula 06/23/24 06:03 88 L Room Air 06/23/24 03:44 36.7 C 82 18 118/70 90 Room Air O2 Flow Rate 06/23/24 11:18 2 06/23/24 07:27 3 06/23/24 07:15 06/23/24 07:02 06/23/24 06:07 0 06/23/24 06:07 2 06/23/24 06:03 06/23/24 03:44
--- OUTSIDE RECORDS SUMMARY | 2024-06-24 15:20 | External Medical Summary | Summary of Care ---
Author Name Unknown Organization [facility] Address [address] [place] [address] Phone [phone] Care Team Providers Care Press Operator Name Role Phone Nilton Fuller MD Primary Care Provide r Encounter Details Date Type Department Care Team (Late st Contact Info) Description 06/23/2024 Population Health External Data Unspecified Department Allergies [...] as of this encounter (statuses as of 06/23/2024) Medications SENNA PLUS 8.6-50 MG PO TABS [...] TABLET BY MOUTH DAILY 90 Tablet 3 06/20/2024 6:35 PM EST 12/14/2023 Active Rosuvastatin Calcium 5 MG Oral [...] CAPSULE BY MOUTH DAILY 90 Capsule 3 06/21/2024 6:43 PM EST 12/14/2023 Active Venlafaxine HCl ER 75 MG [...] mouth in the morning. 90 Tablet 1 06/22/2024 1:08 PM EST 06/20/2024 Active documented as of this encounter (statuses as of 06/23/2024) Active Problems Problem Noted Date Diagnosed Date HTN, GOAL BELOW 140/90 06/21/2009 Overview (06/21/2009): Modified per HTN protocol #16. DERMATITIS DUE TO PRESERVATIVES 07/18/2005 ALLERGIC RHINITIS - MIXED TYPE 06/17/2005 EYELID- DERMATITIS 06/17/2005 GERD (gastroesophageal reflux disease) 3 Hypothyroidism 12/16/2002 Intractable migraine 12/16/2002 Overview (11/13/2015): ICD-10 update of inactive term documented as of this encounter (statuses as of 06/23/2024) Resolved Problems Problem Noted Date Diagnosed Date Resolved Date Encounter for examination fo r normal comparison and control in clinical research program 06/28/2018 03/05/2020 Overview (11/19/2020): DO NOT DELETE [facility] DETECT Study: Project # [id number], Rail Bender: Gab Nunes, PhD. SUMMARY: Goal: Establish test [...] contact study staff at ; after hours Rail Bender via the [facility] hospital sausage machine operator . Please contact study team before resolving/deleting from patients problem list. Study phone number: [phone]. Diagnosis changed due to Research Module. Go to Snapshot for study details. Encounter for examination fo r normal comparison and control in clinical research program 06/28/2018 04/03/2022 Overview (11/19/2020): DO NOT DELETE - [facility] Study: Project # [id number], Rail Bender: Reg Morrison, MS, MPH. SUMMARY: Goal: Establish [...] contact study staff at ; after hours Rail Bender via the [facility] hospital sausage machine operator . - Please contact study team before resolving/deleting from patients problem list. Study phone number: [phone]. Diagnosis changed due to Research Module. Go to Snapshot for study details. Dermatitis 12/16/2002 07/18/2005 HYPERTENSION NOS 12/16/2002 06/21/2009 Overview (06/21/2009): Modified per HTN protocol #16. documented as of this encounter (statuses as of 06/23/2024) Immunizations Name Administration Dates Next Due COVID-19 [...] Care Team (Late st Contact Info) Description 07/21/2024 3:30 PM EST Telemedicine Psychiatry Sultana [address] [phone] Dorina Diane MD [...] Monitoring 02/28/2025 02/29/2024 DXA Scan 01/03/2031 01/04/2024, 080 10/2020, 01/04/2019, Additional history exists Fecal Occult [...] this encounter Medical Devices Implanted Type Area Watcher Automat Long Goods Device Identifier Shelf Expiration Date Model / Serial / Lot Lens Intraoc 18.5 - [id number] - [id number] Implanted:Qty: 1 on 05/19/2019 by Ignacio Montano MD at OR [facility] Left: Eye [employer]OM[employer] 12/01/2023 [id number] / [id number] / Lens Intraoc 20.5 - [id number] - [id number] Implanted:Qty: 1 on 05/26/2019 by Ignacio Montano MD at OR [facility] Right: Eye [employer] LOM[employer] 01/01/2024 [id number] / [id number] / [id number] documented as of this encounter Advance Directives * Full Code (Latest Code Status on File) Date Activated Date Inactivated Comments 11/15/2013 10:55 AM 11/16/2013 4:28 PM This order reflects the patients wishes and were consensually agreed upon. Care Teams Press Operator Relationship Specialty Start Date End Date Nilton Fuller MD [address] [place] [address] PCP - General Family Medicine 04/14/17 documented as of this encounter
== END 2024-06-23 15:41 ==
LOC: EDINP 13:10 → ED 13:10 → SUATTDRO 16:35 → 2N 19:28

== ENCOUNTER 2024-09-19 15:47 | Inpatient (IN) ==
[2024-09-19] MEDS: ONDANSETRON INJ 2 MG/ML 2 ML VIAL IV STA (16:41)
[2024-09-19] MEDS: SODIUM CHLORIDE 0.9% 500 ML IV ONE (16:41)
[2024-09-19 17:04] LABS: Albumin Globulin Ratio 1.3 (0.9-2); Albumin Level 4.3 gm/dl (3.4-5.0); BUN Creatinine Ratio 16.9 (10-20); Bilirubin,Total 0.7 mg/dl (0.2-1.0); Calcium 9.2 mg/dl (8.6-10.3); Globulin 3.3 gm/dl (2.5-4.0); Potassium 3.7 mmol/L (3.5-5.1); Total Protein 7.6 gm/dl (6.0-8.3)
[2024-09-19 17:06] LABS: Basophils # (auto) 0.03 K/uL (0.00-0.20); Basophils % (auto) 0.5 %; Eosinophils # (auto) 0.06 K/uL (0.00-0.50); Hematocrit (blood only) 41.4 % (37.0-47.0); Hemoglobin 15.1 g/dl (12.0-16.0); Immature Granulocytes # (auto) 0.07 K/uL (0.01-0.20); Immature Granulocytes % (auto) 1.1 %; Lymphocytes # (auto) 0.98 K/uL (1.20-3.40); Lymphocytes % (auto) 15.9 %; Mean Corpuscular Hemoglobin 31.5 pg (25.0-34.0); Mean Corpuscular Hgb Conc 36.5 g/dL (32.0-36.0); Mean Corpuscular Volume 86.4 fL (80.0-100.0); Mean Platelet Volume 8.7 fL (9.4-12.4); Monocytes # (auto) 0.73 K/uL (0.11-0.59); Monocytes % (auto) 11.9 %; Neutrophils # (auto) 4.28 K/uL (1.40-6.50); Neutrophils % (auto) 69.6 %; Platelet Count 368 K/uL (130-400); RDW Coefficient of Variation 11.5 % (11.5-14.5); RDW Standard Deviation 36.9 fL (36.4-46.3); Red Blood Count 4.79 M/uL (4.20-5.40); White Blood Count 6.15 K/ul (4.8-10.8)
[2024-09-19 17:38] LABS: Adenovirus PCR Not Detected (NotDetected); Bordetella parapertussis PCR Not Detected (NotDetected); Bordetella pertussis PCR Not Detected (NotDetected); Chlamydia pneumoniae PCR Not Detected (NotDetected); Coronavirus 229E PCR Not Detected (NotDetected); Coronavirus CoV-2 (COVID19)PCR Not Detected (NotDetected); Coronavirus HKU1 PCR Not Detected (NotDetected); Coronavirus NL63 PCR Not Detected (NotDetected); Coronavirus OC43PCR Not Detected (NotDetected); Human Metapneumovirus PCR Not Detected (NotDetected); Influenza A PCR Not Detected (NotDetected); Influenza B PCR Not Detected (NotDetected); Mycoplasma pneumoniae PCR Not Detected (NotDetected); Parainfluenza Virus 1 PCR Not Detected (NotDetected); Parainfluenza Virus 2 PCR Not Detected (NotDetected); Parainfluenza Virus 3 PCR Not Detected (NotDetected); Parainfluenza Virus 4 PCR Not Detected (NotDetected); Respiratory Syncytial VirusPCR Not Detected (NotDetected); Rhinovirus/Enterovirus PCR Not Detected (NotDetected)
--- NOTE | 2024-09-19 18:11 | Emergency Department Note ---
Impression & Plan Acute hyponatremia, Nausea & vomiting, Hypertension ED Provider Note NAME: FLORES GALLAGHER AGE: 74 SEX: F : 1950 ARRIVES VIA: Ambulance INFORMANT: Patient ED PROVIDER(S): Lei Wu MD CHIEF COMPLAINT: Nausea and vomiting, referred. 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 Per EMS report patient's oral intake has declined and there was concern for dehydration. Patient denies any abdominal pain. She denies headache, cough, congestion, diarrhea or urinary symptoms. Of note, the patient did arrive to emergency department during time of high volume, acuity and prolonged emergency department waiting times. Critical pathways initiated from triage. On evaluation patient is no acute distress, afebrile blood pressure in 160s/90s and vital signs otherwise stable. She appears clinically dry. Abdomen exhibits generalized discomfort without discrete tenderness. She exhibits no focal neurologic deficits. EKG without overt acute ischemia. CXR demonstrates peribronchial cuffing which is nonspecific per my personal preliminary review/interpretation. WBC, H/H and platelets within normal limits. There is no left shift. Chemistry demonstrates sodium of 118 with normal glucose. Chloride is also low at 85. Chemistry without metabolic acidosis. Creatinine is normal. Serum osmolality is diluted at 245 with urine osmolality in the 400s and urine sodium 100 consistent with picture of SIADH. LFTs are unremarkable. High-sensitivity troponin 6.6, within normal limits. Lipase is not elevated. UA without evidence of infection. Respiratory BioFire was negative. CT of the abdomen pelvis demonstrates evidence of constipation and otherwise no acute process. CT of the head negative for acute abnormalities. Patient was treated with IV fluid hydration. Following CT imaging which demonstrated distended bladder Ramirez catheter was placed to check I's and O's and assess for UTI. Patient was feeling dizzy and nauseated and was treated with 6.25 mg of Phenergan. Patient subsequently had increased confusion and was noted to be mumbling. Upon my assessment the patient had improved and was answering questions appropriately low with some dystonia. I-STAT chemistry was performed and BSG was normal and sodium was 120/essentially unchanged. Given symptoms occurred in the setting of having received Phenergan suspect likely related this. She was given low-dose (0.5 mg) of IV Cogentin. Patient did agree with plan for admission for further management. UA subsequently without convincing evidence of infection. Case was discussed with Dr. Tinsley, [facility] hospitalist, who will evaluate the patient for admission. Further management per admitting team. Triage Nursing notes reviewed and agree them. Prior/external medical records reviewed Vital Signs: reviewed Differential diagnosis: Gastroenteritis, food borne illness, infections, appendicitis, diverticulitis, inflammatory bowel disease, obstruction, GI bleed, biliary pathology, volvulus, as well as other pathologies. ER treatment provided: See below. Diagnostics interpreted by me: ECG: Normal sinus rhythm, 86 bpm, no ectopy, left bundle branch block, similar to prior, no Sgarbossa criteria, QTc 403, QRS 126. Cardiac Monitoring: An order for continuous cardiac monitoring was placed and demonstrated Normal sinus rhythm, 86 bpm, no ectopy Laboratory studies: See below Imaging studies: See below Consultation(s): Case was discussed with Dr. Tinsley, [facility] hospitalist, who will evaluate the patient for admission. 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 Per EMS report patient's oral intake has declined and there was concern for dehydration. Patient denies any abdominal pain. She denies headache, cough, congestion, diarrhea or urinary symptoms. ROS: See above HPI for pertinent positives & negatives. A total of 10 systems reviewed and were otherwise negative. VITALS:See Below PHYSICAL EXAMINATION: GENERAL: Awake, alert, uncomfortable-appearing, in no distress HENT: Normocephalic, atraumatic. Oropharynx with dry mucous membranes and otherwise unremarkable. EYES: Normal conjunctiva. Sclera non-icteric. EOMI. No nystamgus. PEARRL. NECK: Supple. No nuchal rigidity. FROM. No JVD. RESPIRATORY: Clear to auscultation. CARDIAC: Regular rate, normal rhythm. Extremities warm and well perfused. Pulses equal. ABDOMEN: Soft, non-distended. No tenderness to palpation. No rebound or guarding. No masses. MUSCULOSKELETAL: Chest examination reveals no tenderness. The back is symmetrical on inspection without obvious abnormality. There is no CVA tenderness to palpation. No joint edema. LOWER EXTREMITIES: Calves are equal size bilaterally and non-tender. No edema. No discoloration. NEURO: Normal sensorium. No sensory or motor deficits noted. SKIN: No rash or jaundice noted. ED COURSE: Critical Care: I have personally spent greater than 35 minutes of critical care time in the direct management of this patient. This includes bedside care, interpretation of diagnostic studies, and testing, discussion with consultants, patient, and family members, and other required patient management activities. This 35 minutes is in excess of all separately billable procedures. Lei Wu MD Past Med/Surg History Problem List (Updated 09/20/24 @ 03:13 by Lei Wu MD) Nausea & vomiting (Acute) Acute hyponatremia (Acute) Hyponatremia Other specified peripheral vascular diseases Cellulitis of right toe Contusion of right great toe with damage to nail, initial encounter Weakness (Acute) Acute confusion (Acute) Altered mental status History of traumatic brain injury Ambulatory dysfunction Nocturia Spasticity as late effect of cerebrovascular accident (CVA) Gait disorder Low back pain DVT femoral (deep venous thrombosis) with thrombophlebitis Weakness of left arm Depression Epidural lipomatosis Stenosis, spinal, lumbar History of cervical spinal surgery C5-C6, C6-C7 in 2005; C4-C5 IN 01/2013 Lumbar vertebral fracture Neurogenic bladder Left leg weakness Fracture of fourth lumbar vertebra Vertigo due to brain injury Urinary incontinence Delirium due to known physiological condition Urinary frequency 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 59 minutes Microalbuminuria Anxiety Chest pain Hypothyroidism Osteoarthritis Mood disorder Raynaud disease Colonic adenoma Sleep apnea Hypertension (Chronic) Hyperlipidemia (Chronic) Diabetes (Chronic) Medical History Edema of left lower leg 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) From a fall-has urgent orthopedic consult ordered Lumbar disc disease with radiculopathy Increased urinary frequency Basal cell carcinoma right med calf Cellulitis Carpal tunnel syndrome Surgical History S/P blepharoplasty 11/15/13 History of surgical fusion joint History of carpal tunnel repair left 08/2010 History of oral surgery History of tubal ligation Family History Mother Hypothyroidism Dyslipidemia Renal failure Heart failure Skin cancer basal cell Arthritis Father Hypertension Heart disease Dyslipidemia Skin cancer (melanoma) basal cell Melanoma of multiple sites Parkinson disease Sister Multiple sclerosis Brother Polymyositis Arthritis Melanoma of multiple sites Glaucoma Denies family history of Ovarian cancer Breast cancer Social History Smoking Status: Never smoker Second Hand Exposure: No; Do You Dip or Chew Tobacco: No; Tobacco Cessation Education Requested by Patient: No Hx Alcohol Use: No Hx Substance Use: No Preferred Language: Divehi Communication Ability: Effective Visual Impairment: Diminished Hearing Ability: Normal Hospital Chief Executive Officer Required: No Beliefs That Will Affect Care: None marital status: Current Living Situation: Personal Care Facility Current Living Situation Comment: lives with sister and [id number] current occupational status: employed current occupation: [employer] How many Children do You have: 0 Other Information That Helps Us Care for You: No Feels Safe at Home: Yes Safety Concerns: Feels Safe At This Time Childhood Exposure to Second-Hand Smoke: No Diet: regular caffeine: Yes (1 cup a day) Dental Care, Regularly: Yes Physical Activity Frequency: Does not Exercise Seatbelt Use: always Sunscreen Use: Yes Assistive Devices: Walker Allergies Allergies Allergy/AdvReac Type Severity Reaction Status Date / Time adhesive Allergy Mild RASH Verified 07/21/24 10:22 esomeprazole Allergy Mild RASH Verified 07/21/24 10:22 gabapentin Allergy Mild RASH Verified 07/21/24 10:22 hydrochlorothiazide Allergy Mild RASH-MICARD Verified 07/21/24 10:22 IS omeprazole Allergy Mild Rash Verified 07/21/24 10:22 Sulfa (Sulfonamide Allergy Mild RASH Verified 07/21/24 10:22 Antibiotics) telmisartan Allergy Mild RASH-MICARD Verified 07/21/24 10:22 IS thimerosal Allergy Unknown POSITIVE Verified 07/21/24 10:22 ALLERGY TEST codeine AdvReac Mild NAUSEA Verified 07/21/24 10:22 propoxyphene AdvReac Mild NAUSEA Verified 07/21/24 10:22 Home Meds Home Medications Medication Instructions Recorded Confirmed pioglitazone 15 mg tablet 15 mg PO DAILY 01/21/24 09/19/24 venlafaxine 150 mg 150 mg PO UD 06/20/24 09/19/24 capsule,extended release 24 hr venlafaxine 75 mg capsule,extended 75 mg PO UD 06/20/24 09/19/24 release 24 hr mupirocin 2 % ointment topical kit 1 applic topical BID 07/08/24 09/19/24 bupropion HCl 300 mg 24 hr tablet, 300 mg PO QAM 07/21/24 09/19/24 extended release docusate sodium 100 mg capsule 100 mg PO BID 07/21/24 09/19/24 baclofen 5 mg tablet 5 mg PO HS PRN Spasms 09/19/24 09/19/24 desmopressin 0.2 mg tablet 0.2 mg PO HS 09/19/24 09/19/24 Previous Rx's Medication Instructions Recorded meclizine 25 mg tablet 25 mg PO BID PRN dizziness #30 tabs 08/31/23 loperamide 2 mg capsule 2 mg PO Q6H PRN loose stool #14 11/05/23 (Anti-Diarrheal (loperamide)) caps levothyroxine 112 mcg tablet 112 mcg PO DAILY #90 tabs 12/14/23 mirabegron 25 mg tablet,extended 25 mg PO DAILY #90 tabs 12/14/23 release 24 hr (Myrbetriq) rosuvastatin 5 mg tablet (Crestor) 5 mg PO DAILY #90 tabs 12/14/23 valsartan 40 mg tablet 40 mg PO BID #180 tabs 12/14/23 pantoprazole 40 mg tablet,delayed 40 mg PO DAILY #90 tabs 12/23/23 release (Protonix) CPAP Machine #1 ea 02/01/24 lorazepam 0.5 mg tablet 0.5 mg PO TID PRN anxiety #90 tabs 02/29/24 nifedipine 60 mg tablet,extended 60 mg PO DAILY 90 days #90 tabs 03/01/24 release Results & Data (ED) Vital Signs Vital Signs - 24 hr 09/19/24 15:50 09/19/24 17:30 09/19/24 19:00 Temperature 36.5 C Temperature Source Oral Pulse Rate 80 Pulse Rate [Apical] 83 96 H Respiratory Rate 16 16 18 Respiratory Effort / Characteristics Non-Labored Spontaneous Respiratory Depth Normal Respiratory Pattern Regular Blood Pressure 167/90 H Blood Pressure [Right Arm] 161/89 H 172/115 H Blood Pressure Mean 115 Blood Pressure Mean [Right Arm] 113 134 Pulse Oximetry 95 95 96 Oxygen Delivery Method Room Air Nasal Cannula Nasal Cannula Oxygen Flow Rate 2 2 Sepsis Recent Fever Within 48 Hours No Sepsis New/Unexplained Change in Mental Status N/A Sepsis Action Taken by Nursing No Action Required 09/19/24 19:18 Temperature Temperature Source Pulse Rate 98 H Pulse Rate [Apical] Respiratory Rate Respiratory Effort / Characteristics Respiratory Depth Respiratory Pattern Blood Pressure Blood Pressure [Right Arm] Blood Pressure Mean Blood Pressure Mean [Right Arm] Pulse Oximetry Oxygen Delivery Method Oxygen Flow Rate Sepsis Recent Fever Within 48 Hours Sepsis New/Unexplained Change in Mental Status Sepsis Action Taken by Nursing Laboratory Data Attestation: I reviewed the patient's lab results. 09/19/24 16:05 09/20/24 00:26 Lab Results 09/19/24 09/19/24 09/19/24 Range/Units 16:05 19:23 19:36 WBC 6.15 (4.8-10.8) K/ul RBC 4.79 (4.20-5.40) M/uL Hgb 15.1 (12.0-16.0) g/dl Hct 41.4 (37.0-47.0) % MCV 86.4 (80.0-100.0) fL MCH 31.5 (25.0-34.0) pg MCHC 36.5 H (32.0-36.0) g/dL RDW Std Deviation 36.9 (36.4-46.3) fL RDW Coeff of Manuel 11.5 (11.5-14.5) % Plt Count 368 (130-400) K/uL MPV 8.7 L (9.4-12.4) fL Immature Gran % (Auto) 1.1 % Neut % (Auto) 69.6 % Lymph % (Auto) 15.9 % [place] % (Auto) 11.9 % Eos % (Auto) 1.0 % Baso % (Auto) 0.5 % Neut # (Auto) 4.28 (1.40-6.50) K/uL Lymph # (Auto) 0.98 L (1.20-3.40) K/uL [place] # (Auto) 0.73 H (0.11-0.59) K/uL Eos # (Auto) 0.06 (0.00-0.50) K/uL Baso # (Auto) 0.03 (0.00-0.20) K/uL Immature Gran # (Auto) 0.07 (0.01-0.20) K/uL Sodium 118 L* 118 L* (136-145) mmol/L Potassium 3.7 3.7 (3.5-5.1) mmol/L Chloride 85 L 88 L (98-107) mmol/L Carbon Dioxide 22 21 (21-32) mmol/L Anion Gap 11 9 (3-11) BUN 12 11 (6-23) mg/dl Creatinine 0.71 0.64 (0.6-1.2) mg/dl Est Cr Clr Drug Dosing 65.0 72.1 ml/min eGFR 88.61 92.10 BUN/Creatinine Ratio 16.9 17.2 (10-20) Glucose 115 H 92 (70-99(Fasting)) mg/dl POC Glucose 99 (70-99) mg/dl Osmolality 245 L (280-300) mOsm/kg Calcium 9.2 8.2 L (8.6-10.3) mg/dl Phosphorus 3.2 (2.5-4.9) mg/dl Magnesium 1.5 L (1.7-2.4) mg/dl Total Bilirubin 0.7 (0.2-1.0) mg/dl AST 28 (13-39) U/L ALT 26 (7-52) U/L Alkaline Phosphatase 57 (34-104) U/L Troponin I High Sens 6.6 (0-14) pg/ml Total Protein 7.6 (6.0-8.3) gm/dl Albumin 4.3 (3.4-5.0) gm/dl Globulin 3.3 (2.5-4.0) gm/dl Albumin/Globulin Ratio 1.3 (0.9-2) Lipase 7 L (11-82) U/L Urine Color Yellow Urine Appearance Clear (Clear) Urine pH 7.0 (4.5-7.5) Ur Specific [place] 1.023 (1.000-1.030) Urine Protein 2+ H (Negative) Urine Glucose (UA) Negative (Negative) Urine Ketones 1+ H (Negative) Urine Blood Trace H (Negative) Urine Nitrite Negative (Negative) Urine Bilirubin Negative (Negative) Urine Urobilinogen Negative (Negative) Ur Leukocyte Esterase Negative (Negative) Urine WBC (Auto) 0-5 (0-5) /hpf Urine RBC (Auto) 3-5 H (0-2) /hpf U Hyaline Cast (Auto) 0-2 (0-2) /lpf U Epithel Cells (Auto) 0-2 (0-2) /hpf Urine Bacteria (Auto) None Seen (None Seen) Urine Osmolality 415 L (500-800) mOsm/kg Ur Random Sodium 107 mmol/L Adenovirus (PCR) Not Detected (NotDetected) B. pertussis DNA (PCR) Not Detected (NotDetected) B.parapertussis DNA PCR Not Detected (NotDetected) C. pneumoniae DNA (PCR) Not Detected (NotDetected) Coronavirus OC43 (PCR) Not Detected (NotDetected) Coronavirus HKU1 (PCR) Not Detected (NotDetected) Coronavirus 229E (PCR) Not Detected (NotDetected) SARS-CoV-2 (PCR) Not Detected (NotDetected) Coronavirus NL63 (PCR) Not Detected (NotDetected) Human Metapneumovir PCR Not Detected (NotDetected) Influenza Type A (PCR) Not Detected (NotDetected) Influenza Type B (PCR) Not Detected (NotDetected) M. pneumoniae (PCR) Not Detected (NotDetected) Parainfluenza 1 (PCR) Not Detected (NotDetected) Parainfluenza 2 (PCR) Not Detected (NotDetected) Parainfluenza 3 (PCR) Not Detected (NotDetected) Parainfluenza 4 (PCR) Not Detected (NotDetected) RSV (PCR) Not Detected (NotDetected) Entero/Rhino (PCR) Not Detected (NotDetected) Administered Medications Desmopressin Acetate (Desmopressin Acetate 0.1 Mg Tab) 0.1 mg PO HS ZAIRE Stop: 10/19/24 21:41 Last Admin: 09/20/24 00:39 Dose: Not Given Documented By: KRT Docusate Sodium (Docusate Sodium 100 Mg Cap) 100 mg PO BID ZAIRE Stop: 10/19/24 21:41 Last Admin: 09/19/24 22:25 Dose: 100 mg Documented By: KRT Insulin Aspart (Insulin Aspart Per Unit Charge) 0 units SC ACHS ZAIRE Stop: 10/19/24 21:41 Last Admin: 09/19/24 22:26 Dose: Not Given Documented By: GINGER Valsartan (Valsartan 80 Mg Tab) 40 mg PO BID ZAIRE Stop: 10/19/24 21:41 Last Admin: 09/19/24 22:26 Dose: 40 mg Documented By: GINGER Discontinued Medications Benztropine Mesylate (Benztropine Mesylate 1 Mg/Ml 2 Ml Amp) 0.5 mg IV NOW STA Stop: 09/19/24 19:48 Last Admin: 09/19/24 19:53 Dose: 0.5 mg Documented By: NRB Desmopressin Acetate (Desmopressin Acetate 0.1 Mg Tab) 0.1 mg PO NOW STA Stop: 09/20/24 01:57 Last Admin: 09/20/24 02:19 Dose: 0.1 mg Documented By: GINGER Sodium Chloride (Nss) 500 mls @ 999 mls/hr IV .Q31M ONE Stop: 09/19/24 17:02 Last Infusion: 09/19/24 17:28 Dose: Infused Documented By: Admin: 09/19/24 16:41 Dose: 999 mls/hr Documented By: BROWN Sodium Chloride (Nss) 1,000 mls @ 999 mls/hr IV .Q1H1M ONE Stop: 09/19/24 19:04 Last Infusion: 09/19/24 20:25 Dose: Infused Documented By: Admin: 09/19/24 19:06 Dose: 999 mls/hr Documented By: BROWN Promethazine HCl (Phenergan) 6.25 mg in 50.25 mls @ 201 mls/hr IV NOW STA Stop: 09/19/24 19:13 Last Infusion: 09/19/24 19:22 Dose: Infused Documented By: Admin: 09/19/24 19:02 Dose: 201 mls/hr Documented By: BROWN Famotidine (Pepcid 20mg Iv Push) 20 mg in 5 mls @ 2.5 mls/min IV NOW STA Stop: 09/19/24 19:00 Last Admin: 09/19/24 19:02 Dose: 2.5 mls/min Documented By: BROWN Sodium Chloride (Hypertonic Saline 3%) 50 mls @ 300 mls/hr IV .Q10M ONE; Protocol Stop: 09/19/24 20:52 Last Infusion: 09/20/24 00:41 Dose: Infused Documented By: GINGER Co-signed By: JESI Admin: 09/19/24 21:48 Dose: 300 mls/hr Documented By: GINGER Co-signed By: SHAHEED Ioversol (Optiray 320 100ml) 94 ml IV ONCE ONE Stop: 09/19/24 18:42 Last Admin: 09/19/24 18:41 Dose: 94 ml Documented By: KIP Ondansetron HCl (Ondansetron Inj 2 Mg/Ml 2 Ml Vial) 4 mg IV NOW STA Stop: 09/19/24 16:33 Last Admin: 09/19/24 16:41 Dose: 4 mg Documented By: NRTony Imaging Data Radiologist's Impression: Abdomen/Pelvis CT 09/19/24 18:04 EXAMINATION: Abdomen and pelvis CT with CLINICAL HISTORY: Nausea vomiting hyponatremia PRIORS: None TECHNIQUE: Contiguous axial images were obtained through the abdomen and pelvis with the use of intravenous contrast. Sagittal and coronal reformations are supplied. FINDINGS: Mild hypoventilatory changes at the lung bases. The liver demonstrates fatty infiltration. Homogeneous contrast-enhancement is present. The gallbladder, portal vein, pancreas, spleen, adrenals, aorta and IVC are morphologically unremarkable. A moderate hiatal hernia is present. Advanced atherosclerotic disease of the abdominal aorta noted. Kidneys enhance symmetrically. A large amount of formed stool in the colon. No pericolonic inflammatory change or dilated loops of bowel. Mild to moderate proximal sigmoid colon diverticulosis. No surrounding inflammatory change. No ascites, extraluminal gas or adenopathy. Uterus is atrophic. Urinary bladder is distended. No free fluid in the pelvis. In bone windows, deformed moderately compressed L4 vertebral body present, age-indeterminate. Moderate to advanced osseous demineralization noted with advanced degenerative change throughout the spine. IMPRESSION: 1. No CT evidence of an acute abdominal or pelvic abnormality. 2. Mild to moderate sigmoid colon diverticulosis. 3. Large amount of formed stool in the colon with no dilated loops of bowel. 4. Fatty infiltration of the liver. Electronically signed by Karen Sanchez 09-19-2024 7:23 PM Chest X-Ray 09/19/24 18:04 EXAM: Portable AP chest radiograph TECHNIQUE: AP portable radiograph of the chest was obtained. INDICATION: Shortness of breath Comparison: Chest radiograph June 20, 2024. FINDINGS: LINES and TUBES: None CARDIOVASCULAR: Cardiac silhouette is stably and mildly enlarged in size in size. LUNGS/PLEURA: No focal consolidation identified. Pulmonary vascular congestion. Peribronchial cuffing. No significant pleural fluid. No discernible pneumothorax. OSSEOUS/OTHER: No displaced acute osseous process identified. IMPRESSION: Peribronchial cuffing that may be seen with bronchiolitis. Mild congestive changes of the cardiovascular system. Electronically signed by Akash Pillai 09-19-2024 6:[address] 09/19/24 18:04 EXAMINATION: Head CT without CLINICAL HISTORY: Hyponatremia, nausea vomiting PRIORS: None TECHNIQUE: Contiguous axial images were obtained through the head without the use of intravenous contrast. Sagittal and coronal reformations are supplied. FINDINGS: Mild age-appropriate parenchymal volume loss noted with periventricular lucency representing small vessel occlusive disease. Gonzales-white differentiation is preserved. No edema or midline shift. No intra-axial or extra-axial hemorrhage. Ventricles are normal in size and configuration. Brainstem and cerebellum have a normal appearance. Calvarium unremarkable. Paranasal sinuses and mastoid air cells are well-pneumatized. Globes are intact. No retrobulbar abnormality. IMPRESSION: No CT evidence of an acute intracranial abnormality. Electronically signed by Karen Sanchez 09-19-2024 7:23 PM Discharge Plan Visit Data Chief Complaint: Illness ED Provider: Lei Wu Discharge Problem: Acute hyponatremia, Nausea & vomiting, Hypertension Patient Disposition: Admitted As Inpatient Discharge Instructions Interventions: ED Discharge Assessment Last Done: 09/19/24 21:31 Discharge Problem: Nausea & vomiting Qualifiers: Vomiting type: unspecified Qualified Code(s): R11.2 - Nausea with vomiting, unspecified Hypertension Qualifiers: Hypertension type: unspecified Qualified Code(s): I10 - Essential (primary) hypertension
[2024-09-19 18:36] LABS: Troponin I High Sensitivity 6.6 pg/ml (0-14)
--- NOTE | 2024-09-19 18:40 | XRay Report ---
EXAM: Portable AP chest radiograph TECHNIQUE: AP portable radiograph of the chest was obtained. INDICATION: Shortness of breath Comparison: Chest radiograph June 20, 2024. FINDINGS: LINES and TUBES: None CARDIOVASCULAR: Cardiac silhouette is stably and mildly enlarged in size in size. LUNGS/PLEURA: No focal consolidation identified. Pulmonary vascular congestion. Peribronchial cuffing. No significant pleural fluid. No discernible pneumothorax. OSSEOUS/OTHER: No displaced acute osseous process identified. IMPRESSION: Peribronchial cuffing that may be seen with bronchiolitis. Mild congestive changes of the cardiovascular system. Electronically signed by Akash Pillai 09-19-2024 6:40 PM
[2024-09-19] MEDS: OPTIRAY 320 100ml IV ONE (18:41)
[2024-09-19] MEDS: PROMETHAZINE 6.25 MG/50.25 ML BAG IV STA (19:02)
[2024-09-19] MEDS: FAMOTIDINE 20MG IV PUSH 20 MG/5 ML SYR IV STA (19:02)
[2024-09-19] MEDS: SODIUM CHLORIDE 0.9% 1,000 ML IV ONE (19:06)
--- NOTE | 2024-09-19 19:23 | CT Scan Report ---
EXAMINATION: Abdomen and pelvis CT with CLINICAL HISTORY: Nausea vomiting hyponatremia PRIORS: None TECHNIQUE: Contiguous axial images were obtained through the abdomen and pelvis with the use of intravenous contrast. Sagittal and coronal reformations are supplied. FINDINGS: Mild hypoventilatory changes at the lung bases. The liver demonstrates fatty infiltration. Homogeneous contrast-enhancement is present. The gallbladder, portal vein, pancreas, spleen, adrenals, aorta and IVC are morphologically unremarkable. A moderate hiatal hernia is present. Advanced atherosclerotic disease of the abdominal aorta noted. Kidneys enhance symmetrically. A large amount of formed stool in the colon. No pericolonic inflammatory change or dilated loops of bowel. Mild to moderate proximal sigmoid colon diverticulosis. No surrounding inflammatory change. No ascites, extraluminal gas or adenopathy. Uterus is atrophic. Urinary bladder is distended. No free fluid in the pelvis. In bone windows, deformed moderately compressed L4 vertebral body present, age-indeterminate. Moderate to advanced osseous demineralization noted with advanced degenerative change throughout the spine. IMPRESSION: 1. No CT evidence of an acute abdominal or pelvic abnormality. 2. Mild to moderate sigmoid colon diverticulosis. 3. Large amount of formed stool in the colon with no dilated loops of bowel. 4. Fatty infiltration of the liver. Electronically signed by Karen Sanchez 09-19-2024 7:23 PM
--- NOTE | 2024-09-19 19:23 | CT Scan Report ---
EXAMINATION: Head CT without CLINICAL HISTORY: Hyponatremia, nausea vomiting PRIORS: None TECHNIQUE: Contiguous axial images were obtained through the head without the use of intravenous contrast. Sagittal and coronal reformations are supplied. FINDINGS: Mild age-appropriate parenchymal volume loss noted with periventricular lucency representing small vessel occlusive disease. Gonzales-white differentiation is preserved. No edema or midline shift. No intra-axial or extra-axial hemorrhage. Ventricles are normal in size and configuration. Brainstem and cerebellum have a normal appearance. Calvarium unremarkable. Paranasal sinuses and mastoid air cells are well-pneumatized. Globes are intact. No retrobulbar abnormality. IMPRESSION: No CT evidence of an acute intracranial abnormality. Electronically signed by Karen Sanchez 09-19-2024 7:23 PM
[2024-09-19 19:50] LABS: Appearance Urine Clear (Clear); Bacteria Urine Automated None Seen (None Seen); Bilirubin Urine Negative (Negative); Blood Urine Trace (Negative); Cast Urine Automated 0-2 /lpf (0-2); Color Urine Yellow; Epithelial Cell Urine Auto 0-2 /hpf (0-2); Glucose Urine UA Negative (Negative); Ketones Urine 1+ (Negative); Leukocyte Esterase Urine Negative (Negative); Nitrite Urine Negative (Negative); Protein Urine 2+ (Negative); Specific Gravity Urine 1.023 (1.000-1.030); Urobilinogen Urine Negative (Negative); WBC Urine Automated 0-5 /hpf (0-5)
[2024-09-19] MEDS: BENZTROPINE MESYLATE 1 MG/ML 2 ML AMP IV STA (19:53)
--- NOTE | 2024-09-19 20:16 | History & Physical Report ---
Date of Service September 19, 2024 Assessment & Plan (1) Hyponatremia: Plan: Patient with hyponatremia - Qh=576. Last value of 135 on 06/23/24. Symptomatic with confusion, lethargy and nausea. Likely acute in setting of Desmopressin use. Patient is on 0.2mg po nightly for urinary incontinence. Patient seems to have been on Desmopressin 0.1mg qHS in June 2024 but this medication does not appear on her medication lists after June. Her sister reports she was restarted on 09/16/23 at 0.2mg. Has been given NSS x 1500mL thus far. Na remains at 118. -Admit to PCU -Monitor BMP/Na q 4 hours - next at 00:00 -Will continue Desmopressin for now due to concern for rapid overcorrection that can occur with stopping this medication abruptly -Ramirez catheter with strict I/Os - monitor for free water diuresis -Fluid restriction 1200mL -3% Saline bolus x 50mL - repeat as necessary. Goal to increase Na slowly <10meQ/day -Nephrology consultation appreciated (2) Hypothyroidism: Plan: Chronic -Continue Synthroid -TSH with AM labs (3) Hypertension: Plan: Chronic -Continue Valsartan -Continue Nifedipine (4) Hyperlipidemia: Plan: Chronic -Continue Rosuvastatin (5) Diabetes: Plan: Chronic. Patient is on Pioglitazone outpatient. BSG is acceptable at 115. 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 Patient spent most of the day yesterday and today in bed. She had several episodes of non-bloody emesis prior to arrival today. Patient was recently started on Desmopressin 09/16/24 for urinary incontinence. In the ER patient became more confused after receiving a dose of Phenergan, is being given Cogentin presently. History provided by sister at bedside. ER Course: Zofran 4mg IV NSS x 1500mL Phenergan 6.25mg Pepcid 20mg Benztropine 0.5mg Allergies Allergy/AdvReac Type Severity Reaction Status Date / Time adhesive Allergy Mild RASH Verified 07/21/24 10:22 esomeprazole Allergy Mild RASH Verified 07/21/24 10:22 gabapentin Allergy Mild RASH Verified 07/21/24 10:22 hydrochlorothiazide Allergy Mild RASH-MICARD Verified 07/21/24 10:22 IS omeprazole Allergy Mild Rash Verified 07/21/24 10:22 Sulfa (Sulfonamide Allergy Mild RASH Verified 07/21/24 10:22 Antibiotics) telmisartan Allergy Mild RASH-MICARD Verified 07/21/24 10:22 IS thimerosal Allergy Unknown POSITIVE Verified 07/21/24 10:22 ALLERGY TEST codeine AdvReac Mild NAUSEA Verified 07/21/24 10:22 propoxyphene AdvReac Mild NAUSEA Verified 07/21/24 10:22 Home Medications Medication Instructions Recorded Confirmed Type meclizine 25 mg tablet 25 mg PO BID PRN dizziness #30 tabs 08/31/23 09/19/24 Rx loperamide 2 mg capsule 2 mg PO Q6H PRN loose stool #14 11/05/23 09/19/24 Rx (Anti-Diarrheal (loperamide)) caps levothyroxine 112 mcg tablet 112 mcg PO DAILY #90 tabs 12/14/23 09/19/24 Rx mirabegron 25 mg tablet,extended 25 mg PO DAILY #90 tabs 12/14/23 09/19/24 Rx release 24 hr (Myrbetriq) rosuvastatin 5 mg tablet (Crestor) 5 mg PO DAILY #90 tabs 12/14/23 09/19/24 Rx valsartan 40 mg tablet 40 mg PO BID #180 tabs 12/14/23 09/19/24 Rx pantoprazole 40 mg tablet,delayed 40 mg PO DAILY #90 tabs 12/23/23 09/19/24 Rx release (Protonix) pioglitazone 15 mg tablet 15 mg PO DAILY 01/21/24 09/19/24 History CPAP Machine #1 ea 02/01/24 07/21/24 Rx lorazepam 0.5 mg tablet 0.5 mg PO TID PRN anxiety #90 tabs 02/29/24 09/19/24 Rx nifedipine 60 mg tablet,extended 60 mg PO DAILY 90 days #90 tabs 03/01/24 09/19/24 Rx release venlafaxine 150 mg 150 mg PO UD 06/20/24 09/19/24 History capsule,extended release 24 hr venlafaxine 75 mg capsule,extended 75 mg PO UD 06/20/24 09/19/24 History release 24 hr mupirocin 2 % ointment topical kit 1 applic topical BID 07/08/24 09/19/24 History bupropion HCl 300 mg 24 hr tablet, 300 mg PO QAM 07/21/24 09/19/24 History extended release docusate sodium 100 mg capsule 100 mg PO BID 07/21/24 09/19/24 History baclofen 5 mg tablet 5 mg PO HS PRN Spasms 09/19/24 09/19/24 History desmopressin 0.2 mg tablet 0.2 mg PO HS 09/19/24 09/19/24 History Past Med/Surg History Problem List (Updated 09/19/24 @ 21:06 by Lei Wu MD) Acute hyponatremia (Acute) Hyponatremia Other specified peripheral vascular diseases Cellulitis of right toe Contusion of right great toe with damage to nail, initial encounter Weakness (Acute) Acute confusion (Acute) Altered mental status History of traumatic brain injury Ambulatory dysfunction Nocturia Spasticity as late effect of cerebrovascular accident (CVA) Gait disorder Low back pain DVT femoral (deep venous thrombosis) with thrombophlebitis Weakness of left arm Depression Epidural lipomatosis Stenosis, spinal, lumbar History of cervical spinal surgery C5-C6, C6-C7 in 2005; C4-C5 IN 01/2013 Lumbar vertebral fracture Neurogenic bladder Left leg weakness Fracture of fourth lumbar vertebra Vertigo due to brain injury Urinary incontinence Delirium due to known physiological condition Urinary frequency 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 59 minutes Microalbuminuria Anxiety Chest pain Hypothyroidism Osteoarthritis Mood disorder Raynaud disease Colonic adenoma Sleep apnea Hypertension (Chronic) Hyperlipidemia (Chronic) Diabetes (Chronic) Medical History Edema of left lower leg 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) From a fall-has urgent orthopedic consult ordered Lumbar disc disease with radiculopathy Increased urinary frequency Basal cell carcinoma right med calf Cellulitis Carpal tunnel syndrome Surgical History S/P blepharoplasty 11/15/13 History of surgical fusion joint History of carpal tunnel repair left 08/2010 History of oral surgery History of tubal ligation Family History Mother Hypothyroidism Dyslipidemia Renal failure Heart failure Skin cancer basal cell Arthritis Father Hypertension Heart disease Dyslipidemia Skin cancer (melanoma) basal cell Melanoma of multiple sites Parkinson disease Sister Multiple sclerosis Brother Polymyositis Arthritis Melanoma of multiple sites Glaucoma Denies family history of Ovarian cancer Breast cancer Social History Smoking Status: Never smoker Second Hand Exposure: No; Hx Alcohol Use: No Hx Substance Use: No Preferred Language: Tunisian Communication Ability: Effective Visual Impairment: Diminished Hearing Ability: Normal Home Care Physical Therapist Required: No Beliefs That Will Affect Care: None marital status: Current Living Situation: Family Current Living Situation Comment: lives with sister and [id number] current occupational status: employed current occupation: [employer] How many Children do You have: 0 Feels Safe at Home: Yes Childhood Exposure to Second-Hand Smoke: No Diet: regular caffeine: Yes (1 cup a day) Dental Care, Regularly: Yes Physical Activity Frequency: Does not Exercise Seatbelt Use: always Sunscreen Use: Yes Assistive Devices: Cane and Walker Review of Systems Review of Systems: All systems reviewed & are unremarkable except as noted in HPI & below Physical Exam Physical Exam: General: patient resting comfortably, NAD, ill in appearance, confused Skin: warm, dry, intact, no rashes or lesions HEENT: NC/AT, PERRL, EOMI, anicteric sclera, conjunctiva without injection, external ear normal to inspection and nontender, nares patent, dry mucus membranes, dentition intact, no oropharyngeal lesions, neck supple, trachea midline, no LAD, no thyromegaly, no JVD Heart: +S1/S2, regular, no m/r/g Lungs: equal air entry bilaterally, no rales/rhonchi/wheezes Abd: +BS, soft, NT/ND, no masses/organomegaly/ascites Ext: warm, 2+ pulses in UE/LE bilaterally, no clubbing/cyanosis or edema Neuro: nonfocal, patient confused at present, answers yes and no questions and follows commands, no facial droop, moving all extremities on command with equal strength 5/5 Results & Data Results & Data Vital Signs (Past 12 Hours) Vital Signs Temp Pulse Pulse Resp BP BP Pulse Ox 09/19/24 19:18 98 H 09/19/24 19:00 96 H 18 172/115 H 96 09/19/24 17:30 83 16 161/89 H 95 09/19/24 15:50 36.5 C 80 16 167/90 H 95 O2 Del Method O2 Flow Rate 09/19/24 19:18 09/19/24 19:00 Nasal Cannula 2 09/19/24 17:30 Nasal Cannula 2 09/19/24 15:50 Room Air Laboratory Results Laboratory Results WBC 6.15 K/ul (4.8-10.8) 09/19/24 16:05 RBC 4.79 M/uL (4.20-5.40) 09/19/24 16:05 Hgb 15.1 g/dl (12.0-16.0) 09/19/24 16:05 Hct 41.4 % (37.0-47.0) 09/19/24 16:05 MCV 86.4 fL (80.0-100.0) 09/19/24 16:05 MCH 31.5 pg (25.0-34.0) 09/19/24 16:05 MCHC 36.5 g/dL (32.0-36.0) H 09/19/24 16:05 RDW Std Deviation 36.9 fL (36.4-46.3) 09/19/24 16:05 RDW Coeff of Manuel 11.5 % (11.5-14.5) 09/19/24 16:05 Plt Count 368 K/uL (130-400) 09/19/24 16:05 MPV 8.7 fL (9.4-12.4) L 09/19/24 16:05 Immature Gran % (Auto) 1.1 % 09/19/24 16:05 Neut % (Auto) 69.6 % 09/19/24 16:05 Lymph % (Auto) 15.9 % 09/19/24 16:05 Edwards % (Auto) 11.9 % 09/19/24 16:05 Eos % (Auto) 1.0 % 09/19/24 16:05 Baso % (Auto) 0.5 % 09/19/24 16:05 Neut # (Auto) 4.28 K/uL (1.40-6.50) 09/19/24 16:05 Lymph # (Auto) 0.98 K/uL (1.20-3.40) L 09/19/24 16:05 Edwards # (Auto) 0.73 K/uL (0.11-0.59) H 09/19/24 16:05 Eos # (Auto) 0.06 K/uL (0.00-0.50) 09/19/24 16:05 Baso # (Auto) 0.03 K/uL (0.00-0.20) 09/19/24 16:05 Immature Gran # (Auto) 0.07 K/uL (0.01-0.20) 09/19/24 16:05 Sodium 118 mmol/L (136-145) L* 09/19/24 19:36 Potassium 3.7 mmol/L (3.5-5.1) 09/19/24 19:36 Chloride 88 mmol/L (98-107) L 09/19/24 19:36 Carbon Dioxide 21 mmol/L (21-32) 09/19/24 19:36 Anion Gap 9 (3-11) 09/19/24 19:36 BUN 11 mg/dl (6-23) 09/19/24 19:36 Creatinine 0.64 mg/dl (0.6-1.2) 09/19/24 19:36 Est Cr Clr Drug Dosing 72.1 ml/min 09/19/24 19:36 eGFR 92.10 09/19/24 19:36 BUN/Creatinine Ratio 17.2 (10-20) 09/19/24 19:36 Glucose 92 mg/dl (70-99(Fasting)) 09/19/24 19:36 POC Glucose 99 mg/dl (70-99) 09/19/24 19:36 Osmolality 245 mOsm/kg (280-300) L 09/19/24 16:05 Calcium 8.2 mg/dl (8.6-10.3) L 09/19/24 19:36 Total Bilirubin 0.7 mg/dl (0.2-1.0) 09/19/24 16:05 AST 28 U/L (13-39) 09/19/24 16:05 ALT 26 U/L (7-52) 09/19/24 16:05 Alkaline Phosphatase 57 U/L (34-104) 09/19/24 16:05 Troponin I High Sens 6.6 pg/ml (0-14) 09/19/24 16:05 Total Protein 7.6 gm/dl (6.0-8.3) 09/19/24 16:05 Albumin 4.3 gm/dl (3.4-5.0) 09/19/24 16:05 Globulin 3.3 gm/dl (2.5-4.0) 09/19/24 16:05 Albumin/Globulin Ratio 1.3 (0.9-2) 09/19/24 16:05 Lipase 7 U/L (11-82) L 09/19/24 16:05 Urine Color Yellow 09/19/24 19:23 Urine Appearance Clear (Clear) 09/19/24 19:23 Urine pH 7.0 (4.5-7.5) 09/19/24 19:23 Ur Specific [place] 1.023 (1.000-1.030) 09/19/24 19:23 Urine Protein 2+ (Negative) H 09/19/24 19:23 Urine Glucose (UA) Negative (Negative) 09/19/24 19: Urine Ketones 1+ (Negative) H 09/19/24 19: Urine Blood Trace (Negative) H 09/19/24 19:23 Urine Nitrite Negative (Negative) 09/19/24 19:23 Urine Bilirubin Negative (Negative) 09/19/24 19:23 Urine Urobilinogen Negative (Negative) 09/19/24 19: Ur Leukocyte Esterase Negative (Negative) 09/19/24 19: Urine WBC (Auto) 0-5 /hpf (0-5) 09/19/24 19:23 Urine RBC (Auto) 3-5 /hpf (0-2) H 09/19/24 19:23 U Hyaline Cast (Auto) 0-2 /lpf (0-2) 09/19/24 19:23 U Epithel Cells (Auto) 0-2 /hpf (0-2) 09/19/24 19:23 Urine Bacteria (Auto) None Seen (None Seen) 09/19/24 19:23 Urine Osmolality 415 mOsm/kg (500-800) L 09/19/24 19:23 Ur Random Sodium 107 mmol/L 09/19/24 19:23 Adenovirus (PCR) Not Detected (NotDetected) 09/19/24 16:05 B. pertussis DNA (PCR) Not Detected (NotDetected) 09/19/24 16:05 B.parapertussis DNA PCR Not Detected (NotDetected) 09/19/24 16:05 C. pneumoniae DNA (PCR) Not Detected (NotDetected) 09/19/24 16:05 Coronavirus OC43 (PCR) Not Detected (NotDetected) 09/19/24 16:05 Coronavirus HKU1 (PCR) Not Detected (NotDetected) 09/19/24 16:05 Coronavirus 229E (PCR) Not Detected (NotDetected) 09/19/24 16:05 SARS-CoV-2 (PCR) Not Detected (NotDetected) 09/19/24 16:05 Coronavirus NL63 (PCR) Not Detected (NotDetected) 09/19/24 16:05 Human Metapneumovir PCR Not Detected (NotDetected) 09/19/24 16:05 Influenza Type A (PCR) Not Detected (NotDetected) 09/19/24 16:05 Influenza Type B (PCR) Not Detected (NotDetected) 09/19/24 16:05 M. pneumoniae (PCR) Not Detected (NotDetected) 09/19/24 16:05 Parainfluenza 1 (PCR) Not Detected (NotDetected) 09/19/24 16:05 Parainfluenza 2 (PCR) Not Detected (NotDetected) 09/19/24 16:05 Parainfluenza 3 (PCR) Not Detected (NotDetected) 09/19/24 16:05 Parainfluenza 4 (PCR) Not Detected (NotDetected) 09/19/24 16:05 RSV (PCR) Not Detected (NotDetected) 09/19/24 16:05 Entero/Rhino (PCR) Not Detected (NotDetected) 09/19/24 16:05 Impressions Abdomen/Pelvis CT 09/19/24 18:04 EXAMINATION: Abdomen and pelvis CT with CLINICAL HISTORY: Nausea vomiting hyponatremia PRIORS: None TECHNIQUE: Contiguous axial images were obtained through the abdomen and pelvis with the use of intravenous contrast. Sagittal and coronal reformations are supplied. FINDINGS: Mild hypoventilatory changes at the lung bases. The liver demonstrates fatty infiltration. Homogeneous contrast-enhancement is present. The gallbladder, portal vein, pancreas, spleen, adrenals, aorta and IVC are morphologically unremarkable. A moderate hiatal hernia is present. Advanced atherosclerotic disease of the abdominal aorta noted. Kidneys enhance symmetrically. A large amount of formed stool in the colon. No pericolonic inflammatory change or dilated loops of bowel. Mild to moderate proximal sigmoid colon diverticulosis. No surrounding inflammatory change. No ascites, extraluminal gas or adenopathy. Uterus is atrophic. Urinary bladder is distended. No free fluid in the pelvis. In bone windows, deformed moderately compressed L4 vertebral body present, age-indeterminate. Moderate to advanced osseous demineralization noted with advanced degenerative change throughout the spine. IMPRESSION: 1. No CT evidence of an acute abdominal or pelvic abnormality. 2. Mild to moderate sigmoid colon diverticulosis. 3. Large amount of formed stool in the colon with no dilated loops of bowel. 4. Fatty infiltration of the liver. Electronically signed by Karen Sanchez 09-19-2024 7:23 PM Chest X-Ray 09/19/24 18:04 EXAM: Portable AP chest radiograph TECHNIQUE: AP portable radiograph of the chest was obtained. INDICATION: Shortness of breath Comparison: Chest radiograph June 20, 2024. FINDINGS: LINES and TUBES: None CARDIOVASCULAR: Cardiac silhouette is stably and mildly enlarged in size in size. LUNGS/PLEURA: No focal consolidation identified. Pulmonary vascular congestion. Peribronchial cuffing. No significant pleural fluid. No discernible pneumothorax. OSSEOUS/OTHER: No displaced acute osseous process identified. IMPRESSION: Peribronchial cuffing that may be seen with bronchiolitis. Mild congestive changes of the cardiovascular system. Electronically signed by Akash Pillai 09-19-2024 6:[address] 09/19/24 18:04 EXAMINATION: Head CT without CLINICAL HISTORY: Hyponatremia, nausea vomiting PRIORS: None TECHNIQUE: Contiguous axial images were obtained through the head without the use of intravenous contrast. Sagittal and coronal reformations are supplied. FINDINGS: Mild age-appropriate parenchymal volume loss noted with periventricular lucency representing small vessel occlusive disease. Gonzales-white differentiation is preserved. No edema or midline shift. No intra-axial or extra-axial hemorrhage. Ventricles are normal in size and configuration. Brainstem and cerebellum have a normal appearance. Calvarium unremarkable. Paranasal sinuses and mastoid air cells are well-pneumatized. Globes are intact. No retrobulbar abnormality. IMPRESSION: No CT evidence of an acute intracranial abnormality. Electronically signed by Karen Sanchez 09-19-2024 7:23 PM PG Care Time/CCT Total # of Minutes Spent Total Time Spent with Patient: Total time spent is greater than 50% in coordination of care (as documented) at patient's floor/unit and/or counseling patient: Coding Level of Care Code 03002 INT INP/OBS CARE 3/75MIN Diagnoses Hyponatremia E87.1 Hypothyroidism E03.9 Hypertension I10 Hyperlipidemia E78.5 Diabetes E11.9 Sleep apnea G47.30
[2024-09-19 20:25] LABS: BUN Creatinine Ratio 17.2 (10-20); Calcium 8.2 mg/dl (8.6-10.3); Creatinine Clr Calc Pharmacy 72.1 ml/min; Potassium 3.7 mmol/L (3.5-5.1)
[2024-09-19] MEDS ORDERED: STAT IV/IM STA (20:43)
[2024-09-19] MEDS ORDERED: ACETAMINOPHEN 325 MG TAB PO PRN (21:42)
[2024-09-19] MEDS ORDERED: ONDANSETRON INJ 2 MG/ML 2 ML VIAL IV PRN (21:42)
[2024-09-19] MEDS ORDERED: GLUCOSE 10 TAB/TUBE PO PRN (21:42)
[2024-09-19] MEDS ORDERED: BACLOFEN 10 MG TAB PO PRN (21:42)
[2024-09-19] MEDS ORDERED: CARBOHYDRATES FOR HYPOGLYCEMIA PO PRN (21:42)
[2024-09-19] MEDS ORDERED: GLUCAGON FOR INJ 1 MG VIAL SQ PRN (21:42)
[2024-09-19] MEDS ORDERED: GLUCOSE 40% GEL 15 GM TUBE PO PRN (21:42)
[2024-09-19] MEDS ORDERED: DEXTROSE 50% 50 ML SYRINGE IV PRN (21:42)
[2024-09-19] MEDS ORDERED: LOPERAMIDE HCL 2 MG CAP PO PRN (21:42)
[2024-09-19] MEDS: SODIUM CHLORIDE 3 % 50 ML IV ONE (21:48)
[2024-09-19 22:13] LABS: Magnesium 1.5 mg/dl (1.7-2.4); Phosphorus 3.2 mg/dl (2.5-4.9)
[2024-09-19] MEDS: DOCUSATE SODIUM 100 MG CAP PO SCH (22:25)
[2024-09-19] MEDS: INSULIN ASPART PER UNIT CHARGE SC SCH (22:26)
[2024-09-19] MEDS: VALSARTAN 80 MG TAB PO SCH (22:26)
--- OUTSIDE RECORDS SUMMARY | 2024-09-20 00:27 | External Medical Summary | Summary of Care ---
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 Mechanic Name Role Phone Nilton Fuller MD Primary Care Provide r Encounter Details Date Type Department Care Team (Late st Contact Info) Description 09/13/2024 Population Health External Data Unspecified Department Allergies [...] as of this encounter (statuses as of 09/14/2024) Medications Levothyroxine Sodium 112 MCG Oral Tablet (Levoxyl) TAKE 1 TABLET BY MOUTH DAILY 90 Tablet 3 08/04/2024 2:47 PM EST 4 Active Pantoprazole Sodium 40 MG Oral Tablet Delayed Release (Protonix) TAKE 1 TABLET BY MOUTH DAILY 90 Tablet 3 09/14/2024 2:04 PM EST 4 Active Pioglitazone HCl 15 MG Oral Tablet (Actos) TAKE 1 TABLET BY MOUTH DAILY 90 Tablet 3 09/13/2024 2:41 PM EST 4 Active Rosuvastatin Calcium 5 MG Oral Tablet (Crestor) TAKE 1 TABLET BY MOUTH DAILY 90 Tablet 3 08/02/2024 4:35 PM EST 4 Active Valsartan 40 MG Oral Tablet (Diovan) TAKE 1 TABLET BY MOUTH TWICE A DAY 180 Tablet 3 05/09/2024 2:14 PM EDT 4 Active Venlafaxine HCl ER 150 MG Oral Capsule Extended Release 24 Hour (Effexor XR) TAKE 1 CAPSULE BY MOUTH DAILY 90 Capsule 3 09/14/2024 2:04 PM EST 4 Active Venlafaxine HCl ER 75 MG Oral Capsule Extended Release 24 Hour (Effexor XR) TAKE 1 CAPSULE BY MOUTH DAILY WITH 150MG TO EQUAL TOTAL DAILY DOSE OF 225MG 90 Capsule 3 09/13/2024 2:41 PM EST 4 Active oxyBUTYnin Chloride 5 MG Oral Tablet (Ditropan) take 1 tablet by mouth twice a day 180 Tablet 3 06/17/2024 5:23 PM EST 4 Active Additional Information Patient not taking.Reported on 08/02/2024 NIFEdipine ER 60 MG Oral Tablet Extended Release 24 Hour (Adalat CC) Take one tablet daily 90 Tablet 3 08/06/2024 2:12 PM EST 4 Active buPROPion HCl ER (XL) 300 MG Oral Tablet Extended Release 24 Hour (Wellbutrin XL) Take 1 Tablet by mouth in the morning. 30 Tablet 3 4 Active oxyBUTYnin Chloride ER 10 MG Oral Tablet Extended Release 24 Hour (Ditropan XL) Take 1 Tablet by mouth in the morning. 90 Tablet 1 06/22/2024 1:08 PM EST 4 Active Additional Information Patient not taking.Reported on 08/02/2024 Baclofen 10 MG Oral Tablet (Lioresal) Take 0.5 Tablets by mouth every evening. For muscle spasms 4 Active Docusate Sodium 100 MG Oral Capsule (Colace) Take 1 Capsule by mouth 2 times a day. Active Mupirocin 2 % External Ointment (Bactroban) Apply a small amount topically to affected area twice daily for wound care 4 Active Myrbetriq 25 MG Oral Tablet Extended Release 24 Hour Take 1 Tablet by mouth daily. Active Loperamide HCl 2 MG Oral Capsule (Imodium) Take 1 Capsule by mouth every 6 hours as needed for Diarrhea. 4 Active Meclizine HCl 25 MG Oral Tablet (Antivert) Take 1 Tablet by mouth 2 times a day as needed for Dizziness. 4 Active Mucus-DM 30-600 MG Oral Tablet Extended Release 12 Hour Take 1 Tablet by mouth 2 times a day as needed for Cough. Active LORazepam 0.5 MG Oral Tablet (Ativan) Take 1 Tablet by mouth 3 times a day as needed for Anxiety. 4 Active documented as of this encounter (statuses as of 09/14/2024) Active Problems Problem Noted Date Diagnosed Date HTN, GOAL BELOW 140/90 06/21/2009 Overview (06/21/2009): Modified per HTN protocol #16. DERMATITIS DUE TO PRESERVATIVES 07/18/2005 ALLERGIC RHINITIS - MIXED TYPE 06/17/2005 EYELID- DERMATITIS 06/17/2005 GERD (gastroesophageal reflux disease) 3 Hypothyroidism 12/16/2002 Intractable migraine 12/16/2002 Overview (11/13/2015): ICD-10 update of inactive term documented as of this encounter (statuses as of 09/14/2024) Resolved Problems Problem Noted Date Diagnosed Date Resolved Date Encounter for examination fo r normal comparison and control in clinical research program 06/28/2018 03/05/2020 Overview (11/19/2020): DO NOT DELETE [facility] DETECT Study: Project # [id number], Parts Sales Advisor: Gab Nunes, PhD. SUMMARY: Goal: Establish test [...] contact study staff at ; after hours Parts Sales Advisor via the [facility] motor generator set operator . Please contact study team before resolving/deleting from patients problem list. Study phone number: [phone]. Diagnosis changed due to Research Module. Go to Snapshot for study details. Encounter for examination fo r normal comparison and control in clinical research program 06/28/2018 04/03/2022 Overview (11/19/2020): DO NOT DELETE [facility] Study: Project # [id number], Parts Sales Advisor: Reg Morrison, MS, MPH. SUMMARY: Goal: Establish [...] contact study staff at ; after hours Parts Sales Advisor via the [facility] motor generator set operator . - Please contact study team before resolving/deleting from patients problem list. Study phone number: [phone]. Diagnosis changed due to Research Module. Go to Snapshot for study details. Dermatitis 12/16/2002 07/18/2005 HYPERTENSION NOS 12/16/2002 06/21/2009 Overview (06/21/2009): Modified per HTN protocol #16. documented as of this encounter (statuses as of 09/14/2024) Immunizations Name Administration Dates Next Due COVID-19 [...] ages 0-17 years) Not on file 10/14/2023 Food Insecurity Answer Date Recorded Within the past 12 months, y ou worried that your food would run out before you got the money to buy more. Never true 10/14/19 24 Within the past 12 months, t he food you bought just didn't last and you didn't have money to get more. Never true 10/14/2023 Do you need food for this week? No 10/14/2023 Comments No Sex and Gender Information [...] 4:01 PM AIDANT Chanel Wong RN * Because of a [...] documented in this encounter Plan of Treatment Health Maintenance Due Date Last Done Comments Albumin/Creatinine Ratio 09/05/2017 09/05/2014 TSH 10/18/2022 10/18/2021, 04/03, 01/28/2021, Additional history exists COVID-19 Vaccine ( season) 2024 05/02/2022, 05/02/2022, 05/28/2021, Additional history exists Depression Monitoring 02/28/2025 02/29/2024 GFR 07/02/2025 07/02/2024, 06/04, 06/24/2024, Additional history exists DXA Scan 01/03/2031 01/04/2024, 08/10/2020, 01/04/2019, Additional history exists Fecal Occult Blood Test Discontinued 05/10/2008 Zoster Vaccines Completed 10/18/2018, 08/03, 04/23/2009 Pneumococcal Vaccine: 50+ Years Completed 02/07/2021, 09/14/2015, 05/31/2009 Colonoscopy Discontinued 01/27/2023, 01/02, 04/09/2017, Additional history exists Colorectal Cancer Screening Discontinued RETIRED - COLONOSCOPY-EVERY 5 YRS AGES 18-100 Discontinued 01/27/2023, 01/27/2023, 04/09/2017, Additional history exists Influenza Vaccine (FLU shot) Completed 06/13/2024, 06/13/2024, 05/28/2022, Additional history exists Cologuard Discontinued HPV (Gardasil) [...] this encounter Medical Devices Implanted Type Area Aircraft Tool Maker Device Identifier Shelf Expiration Date Model / Serial / Lot Lens Intraoc 18.5 - [id number] - [id number] Implanted:Qty: 1 on 05/19/2019 by Ignacio Montano MD at [facility] Left: Eye [employer] 12/01/2023 [id number] / [id number] / Lens Intraoc 20.5 - [id number] - [id number] Implanted:Qty: 1 on 05/26/2019 by Ignacio Montano MD at [facility] Right: Eye [employer] 01/01/2024 [id number] / [id number] / [id number] documented as of this encounter Advance Directives * Full Code (Latest Code Status on File) Date Activated Date Inactivated Comments 11/15/2013 10:55 AM 11/16/2013 4:28 PM This order reflects the patients wishes and were consensually agreed upon. Care Teams Marine Diesel Mechanic Relationship Specialty Start Date End Date Nilton Fuller MD [address], [place] [address] PCP - General Family Medicine 04/14/17 documented as of this encounter
[2024-09-20] MEDS: DESMOPRESSIN ACETATE 0.1 MG TAB PO SCH (00:39)
[2024-09-20 00:59] LABS: BUN Creatinine Ratio 13.9 (10-20); Creatinine Clr Calc Pharmacy 64.1 ml/min; Potassium 3.4 mmol/L (3.5-5.1)
[2024-09-20] MEDS: DESMOPRESSIN ACETATE 0.1 MG TAB PO STA (02:19)
[2024-09-20] MEDS: MAGNESIUM SULFATE / D5W 1 GM/100 ML BAG IV SCH (03:45)
[2024-09-20 04:40] LABS: Hemoglobin 14.3 g/dl (12.0-16.0); Mean Corpuscular Hemoglobin 31.3 pg (25.0-34.0); Mean Corpuscular Hgb Conc 35.8 g/dL (32.0-36.0); Mean Corpuscular Volume 87.5 fL (80.0-100.0); Mean Platelet Volume 8.3 fL (9.4-12.4); Platelet Count 297 K/uL (130-400); RDW Coefficient of Variation 12.1 % (11.5-14.5); RDW Standard Deviation 38.8 fL (36.4-46.3); Red Blood Count 4.57 M/uL (4.20-5.40); White Blood Count 5.43 K/ul (4.8-10.8)
[2024-09-20 05:07] LABS: BUN Creatinine Ratio 14.3 (10-20); Calcium 8.9 mg/dl (8.6-10.3); Creatinine Clr Calc Pharmacy 59.9 ml/min; Potassium 3.2 mmol/L (3.5-5.1)
[2024-09-20 05:23] LABS: Thyroid Stimulating Hormone 11.781 uIu/ml (0.300-4.500)
[2024-09-20] MEDS: POTASSIUM CHLORIDE CRTAB 20 MEQ TABCR PO STA (05:30)
[2024-09-20] MEDS: LEVOTHYROXINE SODIUM 112 MCG TABLET PO SCH (05:31)
[2024-09-20 05:57] LABS: T4 Free Thyroxine 0.81 ng/dl (0.61-1.60)
--- NOTE | 2024-09-20 06:44 | Hospitalist Progress Note ---
Date of Service September 20, 2024 Assessment & Plan (1) Acute hyponatremia: (2) Acute confusion: (3) Diabetes: (4) Hypothyroidism: (5) Hypertension: (6) Hyperlipidemia: (7) Sleep apnea: Plan Roxi is a 74 YO Female with PMH oh HTN, HLD, Hypothyroidism, Diabetes Mellitus II, and Sleep Apnea on CPAP. She presented to ER yesterday with confusion, lethargy and weakness from [facility]. 1. Hyponatremia: - On presentation Na- 118 - Hypertonic saline was given in ER - Na elevated to 118->125->124 - Potassium 3.4->3.2 - On Desmopressin 0.2 mg at home. She was on 0.1 mg in June 2024. Was restarted on 0.2 mg on Sep 16. - Will continue Desmopressin 0.1 mg QHS due to concern for rapid overcorrection that may occur with stopping this medication abruptly. - Monitor BMP/Na every 4 hr - Given hypertonic Saline 3% 50 ml, goal is to increase less than 10meq/day - If not at goal of +10meq at next BMP, consider adding hypertonic saline/salt tabs - Nephrology onboard 2. Confusion: - CT head is normal - CT abdomen and pelvis demonstrated no evidence of acute abdominal or pelvic abnormality - Chest x-ray showed peribronchial cuffing consistent with bronchiolitis, but respiratory panel negative - Urine culture showed 2+ protein, 3-5 RBCs/hpf - Confusion most likely due to hyponatremia 3. Diabetes: - Patient is on Pioglitazone outpatient - BSG is acceptable at 115 - Well-controlled - Last Hgb A1C on record is 6 on 06/21/24 (have ranged 5.7- 6.5) - Hold Pioglitazone - [facility] - goal blood sugar 110 - 140 4. Hypothyroidism: - Continue Synthroid - TSH 11.781 on morning labs Chronic conditions: Hypertension: Continue Valsartan and Nifedipine Hyperlipidemia: Continue Rosuvastatin Sleep apnea: CPAP qHS Disposition: MedSurg telemetry Code Status: Full code - will discuss further with family Diet: Regular VTE PPx: SCDs I agree with above statements by Dr. Le. Desmopressin currently on hold. Will recheck BMP at 21:00. IF Na> 130; will restart Desmopressin. Consider additional hypertonic Saline if Na <120. Patient appears to be confused. May be due to Delirium/ Hyponatremia Dr. Willis Admission and Anticipated Discharge Date Admission Date: September 20, 2024 Admission and Anticipated Discharge Date Admission Date: September 19, 2024 Supervising Physician Co-Signing Physician Notes I personally examined the patient and verified varela points of history and exam, discussed case, and agree with decision making and plan documented by Dr. Willis and Liv Le MS II. Hyponatremia is improving, patient with improvement of mental status, on exam patient AAO x3, will continue to monitor. Marva Diane is a 74 Y O Female with PMH of HTN, HLD, Hypothyroidism, Diabetes Mellitus II, and Sleep Apnea on CPAP. She presented to ER yesterday with nausea/vomiting, lethargy and weakness from [facility]. Per ER note, after CT she was given Phenergan for nausea and then developed confusion and was noted to be mumbling. She was then admitted. This morning, the patient is somnolent. A&Ox1. Not able to answer questions. Patient is mumbling responses. Physical Exam Physical Exam: Constitutional: somnolent, in no acute distress HEENT: NCAT, no conjunctival injection CV: regular rate and rhythm, no LE edema Resp: no increased work of breathing, trace expiratory wheezes MSK: no gross deformities appreciated, no pain to palpation of lower extremities Skin: warm, dry, no rash appreciated Neuro: alert & oriented x1, mumbling responses Results & Data Results & Data Vital Signs (Past 12 Hours) Vital Signs Temp Pulse Pulse Resp BP Pulse Ox O2 Del Method 09/20/24 03:28 36.8 C 84 19 148/56 H 98 Room Air 09/19/24 22:00 Nasal Cannula 09/19/24 21:34 36.7 C 90 18 160/80 H 96 Nasal Cannula 09/19/24 21:30 36.7 C 90 18 160/80 H 96 Nasal Cannula 09/19/24 21:27 90 09/19/24 21:00 93 H 16 144/104 H 95 Nasal Cannula 09/19/24 19:18 98 H 09/19/24 19:00 96 H 18 172/115 H 96 Nasal Cannula O2 Flow Rate 09/20/24 03:28 09/19/24 22:00 1 09/19/24 21:34 1.0 09/19/24 21:30 1 09/19/24 21:27 09/19/24 21:00 2 09/19/24 19:18 09/19/24 19:00 2 Laboratory Data Sodium 125 mmol/L (136-145) L 09/20/24 Potassium 4.1 mmol/L (3.5-5.1) 09/20/24 Chloride 96 mmol/L (98-107) L 09/20/24 Carbon Dioxide 22 mmol/L (21-32) 09/20/24 Anion Gap 7 (3-11) 09/20/24 BUN 17 mg/dl (6-23) 09/20/24 Creatinine 0.89 mg/dl (0.6-1.2) 09/20/24 eGFR 67.57 09/20/24 Est GFR ( Amer) 78.2 ml/min 01/01/24 Est GFR (Non-Af Amer) 67.5 ml/min 01/01/24 BUN/Creatinine Ratio 19.1 (10-20) 09/20/24 Glucose 87 mg/dl (70-99(Fasting)) 09/20/24 Hemoglobin A1c 6.0 % (4.5-5.6) H 06/21/24 Calcium 8.9 mg/dl (8.6-10.3) 09/20/24 Phosphorus 3.2 mg/dl (2.5-4.9) 09/19/24 Total Bilirubin 0.7 mg/dl (0.2-1.0) 09/19/24 AST 28 U/L (13-39) 09/19/24 ALT 26 U/L (7-52) 09/19/24 Alkaline Phosphatase 57 U/L (34-104) 09/19/24 Total Protein 7.6 gm/dl (6.0-8.3) 09/19/24 Albumin 4.3 gm/dl (3.4-5.0) 09/19/24 Globulin 3.3 gm/dl (2.5-4.0) 09/19/24 Triglycerides 115 mg/dl (0-150) 06/21/24 Cholesterol 113 mg/dl (0-200) 06/21/24 LDL Cholesterol, Calc 50 mg/dl 06/21/24 HDL Cholesterol 40 mg/dl 06/21/24 Cholesterol/HDL Ratio 2.8 (0-5) 06/21/24 Microalb/Creat Ratio 52.7 mcg/mg (0-30) H 02/12/23 (5) Hypertension Hypertension type: unspecified Qualified Code(s): I10 - Essential (primary) hypertension
[2024-09-20 08:39] LABS: Calcium 8.8 mg/dl (8.6-10.3); Creatinine Clr Calc Pharmacy 61.5 ml/min; Potassium 3.9 mmol/L (3.5-5.1)
[2024-09-20] MEDS: NIFEdipine EXTENDED REL 30 MG TABCR PO SCH (08:48)
[2024-09-20] MEDS: ROSUVASTATIN CALCIUM 5 MG TAB PO SCH (08:48)
[2024-09-20] MEDS: VENLAFAXINE HCL XR 150 MG CAPXR PO SCH (08:48)
[2024-09-20] MEDS: VIBEGRON 75 MG TAB PO SCH (08:48)
[2024-09-20] MEDS: buPROPion XL 300 MG TABCR PO SCH (08:48)
[2024-09-20] MEDS: VENLAFAXINE HCL XR 75 MG CAPXR PO SCH (08:48)
[2024-09-20] MEDS: PANTOprazole 40 MG TAB PO SCH (08:48)
[2024-09-20 12:54] LABS: Calcium 8.9 mg/dl (8.6-10.3); Potassium 3.7 mmol/L (3.5-5.1)
[2024-09-20 12:59] LABS: BUN Creatinine Ratio 17.7 (10-20); Creatinine Clr Calc Pharmacy 58.4 ml/min
--- NOTE | 2024-09-20 14:01 | Nephrology Consultation ---
Date of Consultation September 20, 2024 Assessment & Plan (1) Acute hyponatremia: (2) Altered mental status: (3) Nocturia: (4) Hypertension: Plan Acute hyponatremia, serum sodium 118 with prior sodium low normal. Urine osmolality was 415. Initially received normal saline and then had 3% saline if sodium improving up to 126 but again dropped to 124 this morning. 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 -- Continue to monitor serum sodium every 6 hours, fluid restriction to less than 50 ounces a day -- Liberalize salt in diet -- If next sodium this evening stays below 128, hold desmopressin dose for tonight Thank you for allowing me to participate in your patient's care. History of Present Illness Reason for Consultation: Hyponatremia. Attending Physician: Mahnaz Chawla, History of Present Illness Ms. Roxi Green is a 74yo female with PMH of HTN, chronic urinary incontinence, diabetes, dyslipidemia admitted to the hospital with hyponatremia. Nephrology consult was requested for management of above. EMR records are reviewed in detail during patient's visit. Roxi presented to ER yesterday from [facility] with fatigue, confusion and lower extremity edema for 2 days prior to arrival. She also had several episodes of vomiting prior to arrival. On admission she has noted to have acute hyponatremia, serum sodium was 118 with prior available lab showing sodium of 135. Urine osmolality was 415. Lab was also notable for hypokalemia, sodium was 1 potassium was 32 which now improved to 4.0. Kidney function normal, baseline creatinine 0.7-0.8 mg/dl. Serum calcium, magnesium was normal. TSH was elevated at 11.7 but free T4 was low normal. According to the report she has been on desmopressin since June 2024 for urinary incontinence and nocturia. Recently desmopressin dose was increased to 0.2 mg starting 09/16/2024. She was afebrile with no sign of any active infection. Chest x-ray was unremarkable. CT head, abdomen pelvis with no acute abnormality. No history of recent significant weight loss. Initially she was given IV normal saline 1.5 L. Blood pressure has been acceptable. She was also given 3% saline 50 mL. Sodium slowly improved and up to 126 this morning but again slightly dropped to 124. She was seen this morning while she was having her breakfast, awake, alert. Denied any symptoms. Allergies Allergy/AdvReac Type Severity Reaction Status Date / Time adhesive Allergy Mild RASH Verified 07/21/24 10:22 esomeprazole Allergy Mild RASH Verified 07/21/24 10:22 gabapentin Allergy Mild RASH Verified 07/21/24 10:22 hydrochlorothiazide Allergy Mild RASH-MICARD Verified 07/21/24 10:22 IS omeprazole Allergy Mild Rash Verified 07/21/24 10:22 Sulfa (Sulfonamide Allergy Mild RASH Verified 07/21/24 10:22 Antibiotics) telmisartan Allergy Mild RASH-MICARD Verified 07/21/24 10:22 IS thimerosal Allergy Unknown POSITIVE Verified 07/21/24 10:22 ALLERGY TEST codeine AdvReac Mild NAUSEA Verified 07/21/24 10:22 propoxyphene AdvReac Mild NAUSEA Verified 07/21/24 10:22 Home Medications Medication Instructions Recorded Confirmed Type meclizine 25 mg tablet 25 mg PO BID PRN dizziness #30 tabs 08/31/23 09/19/24 Rx loperamide 2 mg capsule 2 mg PO Q6H PRN loose stool #14 11/05/23 09/19/24 Rx (Anti-Diarrheal (loperamide)) caps levothyroxine 112 mcg tablet 112 mcg PO DAILY #90 tabs 12/14/23 09/19/24 Rx mirabegron 25 mg tablet,extended 25 mg PO DAILY #90 tabs 12/14/23 09/19/24 Rx release 24 hr (Myrbetriq) rosuvastatin 5 mg tablet (Crestor) 5 mg PO DAILY #90 tabs 12/14/23 09/19/24 Rx valsartan 40 mg tablet 40 mg PO BID #180 tabs 12/14/23 09/19/24 Rx pantoprazole 40 mg tablet,delayed 40 mg PO DAILY #90 tabs 12/23/23 09/19/24 Rx release (Protonix) pioglitazone 15 mg tablet 15 mg PO DAILY 01/21/24 09/19/24 History CPAP Machine #1 ea 02/01/24 07/21/24 Rx lorazepam 0.5 mg tablet 0.5 mg PO TID PRN anxiety #90 tabs 02/29/24 09/19/24 Rx nifedipine 60 mg tablet,extended 60 mg PO DAILY 90 days #90 tabs 03/01/24 09/19/24 Rx release venlafaxine 150 mg 150 mg PO UD 06/20/24 09/19/24 History capsule,extended release 24 hr venlafaxine 75 mg capsule,extended 75 mg PO UD 06/20/24 09/19/24 History release 24 hr mupirocin 2 % ointment topical kit 1 applic topical BID 07/08/24 09/19/24 History bupropion HCl 300 mg 24 hr tablet, 300 mg PO QAM 07/21/24 09/19/24 History extended release docusate sodium 100 mg capsule 100 mg PO BID 07/21/24 09/19/24 History baclofen 5 mg tablet 5 mg PO HS PRN Spasms 09/19/24 09/19/24 History desmopressin 0.2 mg tablet 0.2 mg PO HS 09/19/24 09/19/24 History Patient History Medical History Edema of left lower leg 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) From a fall-has urgent orthopedic consult ordered Lumbar disc disease with radiculopathy Increased urinary frequency Basal cell carcinoma right med calf Cellulitis Carpal tunnel syndrome Surgical History S/P blepharoplasty 11/15/13 History of surgical fusion joint History of carpal tunnel repair left 08/2010 History of oral surgery History of tubal ligation Family History Mother Hypothyroidism Dyslipidemia Renal failure Heart failure Skin cancer basal cell Arthritis Father Hypertension Heart disease Dyslipidemia Skin cancer (melanoma) basal cell Melanoma of multiple sites Parkinson disease Sister Multiple sclerosis Brother Polymyositis Arthritis Melanoma of multiple sites Glaucoma Denies family history of Ovarian cancer Breast cancer Social History Smoking Status: Never smoker Second Hand Exposure: No; Do You Dip or Chew Tobacco: No; Tobacco Cessation Education Requested by Patient: No Hx Alcohol Use: No Hx Substance Use: No Preferred Language: Bangladeshi Communication Ability: Effective Visual Impairment: Diminished Hearing Ability: Normal Drum Builder Required: No Beliefs That Will Affect Care: None marital status: Current Living Situation: Personal Care Facility Current Living Situation Comment: lives with sister and [id number] current occupational status: employed current occupation: [employer] How many Children do You have: 0 Other Information That Helps Us Care for You: No Feels Safe at Home: Yes Safety Concerns: Feels Safe At This Time Childhood Exposure to Second-Hand Smoke: No Diet: regular caffeine: Yes (1 cup a day) Dental Care, Regularly: Yes Physical Activity Frequency: Does not Exercise Seatbelt Use: always Sunscreen Use: Yes Assistive Devices: Walker and Wheelchair Review of Systems Review of Systems: Review of system was done and pertinent positives and negatives are mentioned above. Physical Exam Constitutional: WD/WN, vitals as above no acute distress Eyes: + anicteric sclerae Respiratory: Auscultation: lungs clear to auscultation bilaterally Cardiovascular: RRR, no murmur, no edema Gastrointestinal (Abdomen): Inspection/Auscultation: abdomen normal to inspection Musculoskeletal: Extremities: extremities normal to inspection Skin: no rashes, warm and dry Neurologic: no focal motor deficits Psychiatric: Orientation: alert and oriented x 3 Affect: euthymic affect Results & Data Vital Signs (Past 12 Hours) Vital Signs Temp Pulse Pulse Resp BP Pulse Ox O2 Del Method 09/20/24 10:38 36.4 C L 88 17 132/78 91 Nasal Cannula 09/20/24 07:44 80 09/20/24 07:44 Room Air 09/20/24 07:19 36.6 C 83 17 147/79 H 92 Nasal Cannula 09/20/24 03:28 36.8 C 84 19 148/56 H 98 Room Air O2 Flow Rate 09/20/24 10:38 1 09/20/24 07:44 09/20/24 07:44 09/20/24 07:19 1 09/20/24 03:28 PG Care Time/CCT Total # of Minutes Spent Total Time Spent with Patient: Total time spent is greater than 50% in coordination of care (as documented) at patient's floor/unit and/or counseling patient: Coding Level of Care Code 64069 INT INP/OBS CARE 3/75MIN Diagnoses Acute hyponatremia E87.1 Altered mental status R41.82 Nocturia R35.1 Hypertension I10 Hypertension type: unspecified (4) Hypertension Hypertension type: unspecified Qualified Code(s): I10 - Essential (primary) hypertension
[2024-09-20 15:27] LABS: iSTAT Creatinine 0.7 mg/dl (0.6-1.3); iSTAT Hemoglobin 14.6 g/dl (12.0-16.0); iSTAT Ionized Calcium 1.05 mmol/l (1.12-1.32); iSTAT Potassium 3.7 mmol/L (3.3-5.0)
[2024-09-20 16:39] LABS: BUN Creatinine Ratio 19.1 (10-20); Calcium 8.9 mg/dl (8.6-10.3); Creatinine Clr Calc Pharmacy 51.9 ml/min; Potassium 4.1 mmol/L (3.5-5.1)
[2024-09-20] MEDS: LORazepam 0.5 MG TAB PO PRN (20:45)
[2024-09-20] MEDS: SODIUM CHLORIDE 1 GM TABLET PO SCH (20:46)
[2024-09-20 22:21] LABS: Anion Gap 7 (3-11); BUN Creatinine Ratio 16.5 (10-20); Blood Urea Nitrogen 21 mg/dl (6-23); Calcium 8.9 mg/dl (8.6-10.3); Carbon Dioxide 22 mmol/L (21-32); Chloride 96 mmol/L (98-107); Creatinine Clr Calc Pharmacy 36.3 ml/min; Glucose 92 mg/dl (70-99(Fasting)); Sodium 125 mmol/L (136-145)
[2024-09-21 04:00] LABS: BUN Creatinine Ratio 18.6 (10-20); Calcium 8.9 mg/dl (8.6-10.3); Creatinine Clr Calc Pharmacy 40.8 ml/min; Potassium 4.6 mmol/L (3.5-5.1)
--- NOTE | 2024-09-21 07:33 | Hospitalist Progress Note ---
Date of Service September 21, 2024 Assessment & Plan (1) Acute hyponatremia: (2) Acute confusion: (3) Diabetes: (4) Hypothyroidism: (5) Hypertension: (6) Hyperlipidemia: (7) Sleep apnea: (8) Ambulatory dysfunction: Plan Roxi is a 74 YO Female with PMH oh HTN, HLD, Hypothyroidism, Diabetes Mellitus II, and Sleep Apnea on CPAP. She presented to ER on 09/19 with confusion, lethargy and weakness from [facility]. 1. Hyponatremia: - On presentation Na- 118 - Hypertonic saline was given in ER - Na elevated to 118->125->124>130 - Received 1g sodium chloride tab last night, Na 130 this morning - Potassium 3.4->3.2 - On Desmopressin 0.2 mg at home. She was on 0.1 mg in June 2024. Was restarted on 0.2 mg on Sep 16. - Per nephro, increasing salt in diet, fluid restriction of 50oz/day, hold desmopressin for now, monitor BMP/Na every 12 hr, appreciate recs - Goal is to increase less than 10meq/day 2. Confusion: - CT head is normal - CT abdomen and pelvis demonstrated no evidence of acute abdominal or pelvic abnormality - Chest x-ray showed peribronchial cuffing consistent with bronchiolitis, but respiratory panel negative - Urine culture did not show evidence of UTI - Confusion most likely due to hyponatremia 3. Diabetes: - Patient is on Pioglitazone outpatient - BSG is acceptable at 115 - Well-controlled - Last Hgb A1C on record is 6 on 06/21/24 (have ranged 5.7- 6.5) - Hold Pioglitazone - ISS - goal blood sugar 110 - 140 4. Hypothyroidism: - Continue Synthroid - TSH 11.781 on 08/20 5. Ambulatory Dysfunction: - Patient has baseline ambulatory dysfunction and uses a wheelchair at [place], has PT/OT 3x per week - Will consult PT/OT for evaluation before discharge Chronic conditions: Hypertension: Continue Valsartan and Nifedipine Hyperlipidemia: Continue Rosuvastatin Sleep apnea: CPAP qHS Ingrown toenails: Apply mupirocin 2% BID [facility] Code Status: DNR/DNI VTE PPx: SCDs Admission and Anticipated Discharge Date Admission Date: September 20, 2024 Admission and Anticipated Discharge Date Admission Date: September 19, 2024 Supervising Physician Co-Signing Physician Notes I personally examined the patient and verified varela points of history and exam, discussed case, and agree with decision making and plan documented by Dr. Willis and Liv Le MS II. Improving metabolic encephalopathy resulting from hyponatremia. Currently on NaCl tabs, fluid restriction, and holding desmopressin. Marva Diane is a 74 YO female with PMH of HTN, HLD, Hypothyroidism, Diabetes Mellitus II, and Sleep Apnea on CPAP. She presented to ER on 09/19 with nausea/vomiting, lethargy and weakness from [facility]. Her sister reported that she had developed some confusion on around 09/14, and restarted desmopressin on 09/16. Per ER note, after CT she was given Phenergan for nausea and then developed acute confusion and was noted to be mumbling. She was then admitted. This morning, the patient is able to answer questions with her eyes closed. Appears to be mildly confused. Feeling well overall, just tired. Endorses some leg pain of unclear location. No nausea/vomiting, swelling, abdominal pain, bloating, dizziness/lightheadedness, or headache. A&Ox4, although nursing reports that earlier she thought she was going to a wedding today and wasn't aware she was in the hospital. Confusion appears to be persistent although improving. Physical Exam Physical Exam: Constitutional: comfortable, in no acute distress HEENT: NCAT, no conjunctival injection CV: regular rate and rhythm, no LE edema Resp: no increased work of breathing, no wheezing, rhales, or rhonchi MSK: no gross deformities appreciated, no pain to palpation of lower extremities Skin: warm, dry, no rash appreciated Neuro: alert & oriented x4, able to converse in complete sentences Results & Data Results & Data Vital Signs (Past 12 Hours) Vital Signs Temp Pulse Pulse Resp BP Pulse Ox O2 Del Method 09/21/24 07:10 36.3 C L 79 17 132/80 94 Nasal Cannula 09/21/24 04:07 36.8 C 86 18 159/97 H 92 Nasal Cannula 09/20/24 22:51 36.6 C 80 20 132/73 95 Nasal Cannula 09/20/24 21:54 93 H 09/20/24 20:00 Nasal Cannula 09/20/24 19:47 36.6 C 96 H 18 132/72 92 Nasal Cannula O2 Flow Rate 09/21/24 07:10 1 09/21/24 04:07 09/20/24 22:51 1 09/20/24 21:54 09/20/24 20:00 1 09/20/24 19:47 1 Laboratory Data 2 Sodium 130 mmol/L (136-145) L 09/21/24 Potassium 4.1 mmol/L (3.5-5.1) 09/21/24 Chloride 101 mmol/L (98-107) 09/21/24 Carbon Dioxide 24 mmol/L (21-32) 09/21/24 Anion Gap 5 (3-11) 09/21/24 BUN 17 mg/dl (6-23) 09/21/24 Creatinine 0.84 mg/dl (0.6-1.2) 09/21/24 eGFR 72.42 09/21/24 Est GFR ( Amer) 78.2 ml/min 01/01/24 Est GFR (Non-Af Amer) 67.5 ml/min 01/01/24 BUN/Creatinine Ratio 20.2 (10-20) H 09/21/24 Glucose 104 mg/dl (70-99(Fasting)) H 09/21/24 Hemoglobin A1c 6.0 % (4.5-5.6) H 06/21/24 Calcium 8.9 mg/dl (8.6-10.3) 09/21/24 Phosphorus 3.2 mg/dl (2.5-4.9) 09/19/24 Total Bilirubin 0.7 mg/dl (0.2-1.0) 09/19/24 AST 28 U/L (13-39) 09/19/24 ALT 26 U/L (7-52) 09/19/24 Alkaline Phosphatase 57 U/L (34-104) 09/19/24 Total Protein 7.6 gm/dl (6.0-8.3) 09/19/24 Albumin 4.3 gm/dl (3.4-5.0) 09/19/24 Globulin 3.3 gm/dl (2.5-4.0) 09/19/24 Triglycerides 115 mg/dl (0-150) 06/21/24 Cholesterol 113 mg/dl (0-200) 06/21/24 LDL Cholesterol, Calc 50 mg/dl 06/21/24 HDL Cholesterol 40 mg/dl 06/21/24 Cholesterol/HDL Ratio 2.8 (0-5) 06/21/24 Microalb/Creat Ratio 52.7 mcg/mg (0-30) H 02/12/23 (5) Hypertension Hypertension type: unspecified Qualified Code(s): I10 - Essential (primary) hypertension
[2024-09-21 09:47] LABS: BUN Creatinine Ratio 20.2 (10-20); Calcium 8.9 mg/dl (8.6-10.3); Potassium 4.1 mmol/L (3.5-5.1)
--- NOTE | 2024-09-21 10:21 | Nephrology Progress Note ---
Date of Service September 21, 2024 Assessment & Plan (1) Acute hyponatremia: (2) Altered mental status: (3) Nocturia: (4) Hypertension: Plan Acute hyponatremia, serum sodium 118 with prior sodium low normal. Urine osmolality was 415. Initially received normal saline and then had 3% saline if sodium improving up to 126 but again dropped to 124 this morning. 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 Sodium improved to 128 this morning. -- Continue NaCl 1 gm bid, monitor serum sodium every 12 hours, fluid restriction to less than 50 ounces a day -- Liberalize salt in diet -- continue to hold desmopressin for now Admission and Anticipated Discharge Date Admission Date: September 19, 2024 Marva Diane was seen and evaluated this morning. She denied any specific symptoms but mentioned that she is never comfortable in the hospital beds. Sodium improved to 128, other electrolyte acceptable. Blood pressure fair. Decent urine output, net negative. Review of Systems Review of Systems: Review of system was done and pertinent positives and negatives are mentioned above. Physical Exam Constitutional: WD/WN, vitals as above no acute distress Eyes: + anicteric sclerae Respiratory: Auscultation: lungs clear to auscultation bilaterally Cardiovascular: RRR, no murmur, no edema Musculoskeletal: Extremities: extremities normal to inspection Skin: no rashes, warm and dry Neurologic: no focal motor deficits Psychiatric: Orientation: alert and oriented x 3 Affect: euthymic affect Results & Data Vital Signs (Past 12 Hours) Vital Signs Temp Pulse Pulse Resp BP Pulse Ox O2 Del Method 09/21/24 10:17 76 09/21/24 10:09 Nasal Cannula 09/21/24 07:10 36.3 C L 79 17 132/80 94 Nasal Cannula 09/21/24 04:07 36.8 C 86 18 159/97 H 92 Nasal Cannula 09/20/24 22:51 36.6 C 80 20 132/73 95 Nasal Cannula O2 Flow Rate 09/21/24 10:17 09/21/24 10:09 1 09/21/24 07:10 1 09/21/24 04:07 09/20/24 22:51 1 PG Care Time/CCT Total # of Minutes Spent Total Time Spent with Patient: Total time spent is greater than 50% in coordination of care (as documented) at patient's floor/unit and/or counseling patient: Coding Level of Care Code 12938 SUB INP/OBS CARE 235MIN Diagnoses Acute hyponatremia E87.1 Altered mental status R41.82 Nocturia R35.1 Hypertension I10 Hypertension type: unspecified (4) Hypertension Hypertension type: unspecified Qualified Code(s): I10 - Essential (primary) hypertension
--- NOTE | 2024-09-21 12:00 | Electrocardiogram Report ---
Test Reason : Blood Pressure : */* mmHG Vent. Rate : 86 BPM Atrial Rate : 86 BPM P-R Int : 176 ms QRS Dur : 126 ms QT Int : 404 ms P-R-T Axes : 58 -6 109 degrees QTcB Int : 483 ms Normal sinus rhythm Left bundle branch block Abnormal ECG When compared with ECG of 20-Jun-2024 13:41, Left bundle branch block is now Present Confirmed by Earl Bejarano ([id number] on 09/21/2024 11:59:42 AM Referred By: REFERRED SELF Confirmed By: Earl Bejarano
[2024-09-21] MEDS: MUPIROCIN 2% OINT 22 GM TUBE EXT SCH (20:03)
[2024-09-21 21:28] LABS: Albumin Level 3.8 gm/dl (3.4-5.0); BUN Creatinine Ratio 26.4 (10-20); Calcium 8.8 mg/dl (8.6-10.3); Creatinine Clr Calc Pharmacy 43.6 ml/min; Phosphorus 3.9 mg/dl (2.5-4.9); Potassium 4.7 mmol/L (3.5-5.1)
[2024-09-22 10:14] LABS: Albumin Level 3.9 gm/dl (3.4-5.0); BUN Creatinine Ratio 24.5 (10-20); Calcium 8.9 mg/dl (8.6-10.3); Creatinine Clr Calc Pharmacy 49.2 ml/min; Phosphorus 3.5 mg/dl (2.5-4.9)
--- NOTE | 2024-09-22 10:49 | Nephrology Progress Note ---
Date of Service September 22, 2024 Assessment & Plan (1) Acute hyponatremia: (2) Altered mental status: (3) Nocturia: (4) Hypertension: Plan Acute hyponatremia, serum sodium 118 with prior sodium low normal. Urine osmolality was 415. Initially received normal saline and then had 3% saline if sodium improving up to 126 but again dropped to 124 this morning. 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 Sodium improved and staying around 128 to 130 -- Continue NaCl 1 gm bid, fluid restriction to less than 50 ounces a day -- Liberalize salt in diet -- continue to hold desmopressin --ok to be discharged if sodium staying stable. Admission and Anticipated Discharge Date Admission Date: September 19, 2024 Marva Diane was seen and evaluated this morning. She denied any specific symptoms. Sodium improved to 128 to 130, lab from this morning pending. Blood pressure fair. Decent urine output, net negative. Review of Systems Review of Systems: Review of system was done and pertinent positives and negatives are mentioned above. Physical Exam Constitutional: WD/WN, vitals as above no acute distress Eyes: + anicteric sclerae Respiratory: Auscultation: lungs clear to auscultation bilaterally Cardiovascular: RRR, no murmur, no edema Gastrointestinal (Abdomen): Inspection/Auscultation: abdomen normal to inspection Musculoskeletal: Extremities: extremities normal to inspection Skin: no rashes, warm and dry Neurologic: no focal motor deficits Psychiatric: Orientation: alert and oriented x 3 Affect: euthymic affect Results & Data Vital Signs (Past 12 Hours) Vital Signs Temp Pulse Pulse Resp BP Pulse Ox O2 Del Method 09/22/24 08:18 36.3 C L 88 19 133/80 95 Room Air 09/22/24 07:30 78 09/22/24 03:00 36.8 C 80 18 120/70 95 Nasal Cannula PG Care Time/CCT Total # of Minutes Spent Total Time Spent with Patient: Total time spent is greater than 50% in coordination of care (as documented) at patient's floor/unit and/or counseling patient: Coding Level of Care Code 89758 SUB INP/OBS CARE 2/35MIN Diagnoses Acute hyponatremia E87.1 Altered mental status R41.82 Nocturia R35.1 Hypertension I10 Hypertension type: unspecified (4) Hypertension Hypertension type: unspecified Qualified Code(s): I10 - Essential (primary) hypertension
--- NOTE | 2024-09-22 11:01 | Hospitalist Progress Note ---
Date of Service September 22, 2024 Assessment & Plan (1) Acute hyponatremia: (2) Acute confusion: (3) Diabetes: (4) Hypothyroidism: (5) Hypertension: (6) Hyperlipidemia: (7) Sleep apnea: (8) Ambulatory dysfunction: Plan Roxi is a 74 YO Female with PMH oh HTN, HLD, Hypothyroidism, Diabetes Mellitus II, and Sleep Apnea on CPAP. She presented to ER on 09/19 with confusion, lethargy and weakness from [facility]. 1. Hyponatremia: - On presentation Na- 118 - Hypertonic saline was given in ER - Na elevated 118->125->124 - Received 1g sodium chloride tab BID, Na 130 this morning, stable at 130 since yesterday - Potassium stable at 4.0 - On Desmopressin 0.2 mg at home. She was on 0.1 mg in June 2024. Was restarted on 0.2 mg on Sep 16. 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 Appreciate recs. -Plan was to Discharge today but no return call from [facility]. So hopefully will discharge tomorrow. -Foleys out after trial of voiding. 2. Confusion: - CT head is normal - CT abdomen and pelvis demonstrated no evidence of acute abdominal or pelvic abnormality - Chest x-ray showed peribronchial cuffing consistent with bronchiolitis, but respiratory panel negative - Urine culture did not show evidence of UTI - Confusion most likely due to hyponatremia 3. Diabetes: - Patient is on Pioglitazone outpatient - BSG is acceptable at 115 - Well-controlled - Last Hgb A1C on record is 6 on 06/21/24 (have ranged 5.7- 6.5) - Will continue Pioglitazone 4. Hypothyroidism: - Continue Synthroid - TSH 11.781 on 08/20 5. Ambulatory Dysfunction: - Patient has baseline ambulatory dysfunction and uses a wheelchair at [place], has PT/OT 3x per week Chronic conditions: Hypertension: Continue Valsartan and Nifedipine Hyperlipidemia: Continue Rosuvastatin Sleep apnea: CPAP qHS Ingrown toenails: Apply mupirocin 2% BID Disposition: MedSurg telemetry Code Status: DNR/DNI VTE PPx: SCDs Admission and Anticipated Discharge Date Admission Date: September 20, 2024 Admission and Anticipated Discharge Date Admission Date: September 19, 2024 Supervising Physician Co-Signing Physician Notes I personally examined the patient and verified varela points of history and exam, discussed case, and agree with decision making and plan documented by Dr. Willis and Liv Le MS II. Improved metabolic encephalopathy resulting from hyponatremia. Currently on NaCl tabs, fluid restriction, and holding desmopressin. Sodium level 130. Patient was successful trial of voiding today. Anticipate discharge tomorrow back to [facility]. Subjective Roxi was seen and evaluated this morning. Feeling discomfort with mccall catheter. Sodium improved to 130, stable from yesterday. Blood pressure fair. Decent urine output, net negative. Confusion appears to be stable from yesterday, not worsening. Review of Systems Review of Systems: As per HPI. Physical Exam Physical Exam: Constitutional: comfortable, in no acute distress HEENT: NCAT, no conjunctival injection CV: regular rate and rhythm, no LE edema Resp: no increased work of breathing, no wheezing, rhales, or rhonchi MSK: no gross deformities appreciated, no pain to palpation of lower extremities Skin: warm, dry, no rash appreciated Neuro: alert & oriented x4 Results & Data Results & Data Vital Signs (Past 12 Hours) Vital Signs Temp Pulse Pulse Resp BP Pulse Ox O2 Del Method 09/22/24 08:18 36.3 C L 88 19 133/80 95 Room Air 09/22/24 07:30 78 09/22/24 03:00 36.8 C 80 18 120/70 95 Nasal Cannula (5) Hypertension Hypertension type: unspecified Qualified Code(s): I10 - Essential (primary) hypertension
[2024-09-22 22:21] LABS: Albumin Level 3.8 gm/dl (3.4-5.0); BUN Creatinine Ratio 21.2 (10-20); Calcium 8.9 mg/dl (8.6-10.3); Creatinine Clr Calc Pharmacy 39.2 ml/min; Phosphorus 4.2 mg/dl (2.5-4.9); Potassium 4.3 mmol/L (3.5-5.1)
[2024-09-23 08:40] LABS: Basophils # (auto) 0.02 K/uL (0.00-0.20); Basophils % (auto) 0.4 %; Eosinophils # (auto) 0.16 K/uL (0.00-0.50); Eosinophils % (auto) 3.5 %; Hematocrit (blood only) 40.4 % (37.0-47.0); Hemoglobin 13.7 g/dl (12.0-16.0); Immature Granulocytes # (auto) 0.05 K/uL (0.01-0.20); Immature Granulocytes % (auto) 1.1 %; Lymphocytes # (auto) 1.04 K/uL (1.20-3.40); Lymphocytes % (auto) 22.8 %; Mean Corpuscular Hemoglobin 30.9 pg (25.0-34.0); Mean Corpuscular Hgb Conc 33.9 g/dL (32.0-36.0); Mean Platelet Volume 8.5 fL (9.4-12.4); Monocytes # (auto) 0.54 K/uL (0.11-0.59); Monocytes % (auto) 11.8 %; Neutrophils # (auto) 2.75 K/uL (1.40-6.50); Neutrophils % (auto) 60.4 %; Platelet Count 307 K/uL (130-400); RDW Standard Deviation 42.7 fL (36.4-46.3); Red Blood Count 4.44 M/uL (4.20-5.40); White Blood Count 4.56 K/ul (4.8-10.8)
[2024-09-23 08:53] VITALS: PULSE 80; RESP 18
[2024-09-23 08:53] LABS: Albumin Level 3.8 gm/dl (3.4-5.0); Calcium 9.3 mg/dl (8.6-10.3); Creatinine Clr Calc Pharmacy 46.7 ml/min; Phosphorus 4.2 mg/dl (2.5-4.9); Potassium 4.5 mmol/L (3.5-5.1)
[2024-09-23 09:02] LABS: Albumin Level 3.8 gm/dl (3.4-5.0); Bilirubin,Total 0.4 mg/dl (0.2-1.0); Calcium 9.1 mg/dl (8.6-10.3); Potassium 4.3 mmol/L (3.5-5.1)
[2024-09-23 09:08] LABS: Albumin Globulin Ratio 1.4 (0.9-2); Creatinine Clr Calc Pharmacy 46.7 ml/min; Globulin 2.7 gm/dl (2.5-4.0); Total Protein 6.5 gm/dl (6.0-8.3)
--- NOTE | 2024-09-23 11:08 | Discharge Summary ---
Date of Service September 23, 2024 Admission HPI Per Admitting Provider Roxi Green is a 74yo female with history of HTN, HLP, DM presenting from [facility] with complaint of fatigue x 2 days as well as confusion and mild bilateral LE edema. Patient spent most of the day yesterday and today in bed. She had several episodes of non-bloody emesis prior to arrival today. Patient was recently started on Desmopressin 09/16/24 for urinary incontinence. In the ER patient became more confused after receiving a dose of Phenergan, is being given Cogentin presently. History provided by sister at bedside. ER Course: Zofran 4mg IV NSS x 1500mL Phenergan 6.25mg Pepcid 20mg Benztropine 0.5mg Principal Diagnosis 1. Severe Hyponatremia Discharge Exam General: Awake, conversant Heart: S1, S2/regular rate and rhythm, no murmur rubs or gallops Lungs: Clear to auscultation bilaterally. Normal effort Abdomen: Soft/nontender/nondistended. No hepatosplenomegaly Extremities: No clubbing/cyanosis. No edema. Right foot dressing on Behavior: Appropriate, cooperative Discharge Data Allergies Allergy/AdvReac Type Severity Reaction Status Date / Time adhesive Allergy Mild RASH Verified 07/21/24 10:22 esomeprazole Allergy Mild RASH Verified 07/21/24 10:22 gabapentin Allergy Mild RASH Verified 07/21/24 10:22 hydrochlorothiazide Allergy Mild RASH-MICARD Verified 07/21/24 10:22 IS omeprazole Allergy Mild Rash Verified 07/21/24 10:22 Sulfa (Sulfonamide Allergy Mild RASH Verified 07/21/24 10:22 Antibiotics) telmisartan Allergy Mild RASH-MICARD Verified 07/21/24 10:22 IS thimerosal Allergy Unknown POSITIVE Verified 07/21/24 10:22 ALLERGY TEST codeine AdvReac Mild NAUSEA Verified 07/21/24 10:22 propoxyphene AdvReac Mild NAUSEA Verified 07/21/24 10:22 Consultations 09/19/24 19:34 ED Decision to Admit Stat 09/19/24 20:52 Consult Nephrology Routine Ordered Studies 09/19/24 18:04 CT abd pelvis IV con only Stat CT head/brain wo con Stat Hospital Course (1) Acute hyponatremia: (2) Acute confusion: (3) Diabetes: (4) Hypothyroidism: (5) Hypertension: (6) Hyperlipidemia: (7) Sleep apnea: (8) Ambulatory dysfunction: Plan Roxi is a 74 YO Female with PMH oh HTN, HLD, Hypothyroidism, Diabetes Mellitus II, and Sleep Apnea on CPAP. She presented to ER on 09/19 with confusion, lethargy and weakness from [facility]. 1. Hyponatremia: - On presentation Na- 118 - Hypertonic saline was given in ER - Na elevated 118->125->124 - Received 1g sodium chloride tab BID, Na 130 this morning, stable at 130 since yesterday - Potassium stable at 4.0 - On Desmopressin 0.2 mg at home. She was on 0.1 mg in June 2024. Was restarted on 0.2 mg on Sep 16. 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 Appreciate recs. -Discharge today. According to CM, around 1 PM. -Foleys out after trial of voiding. 2. Confusion: - CT head is normal - CT abdomen and pelvis demonstrated no evidence of acute abdominal or pelvic abnormality - Chest x-ray showed peribronchial cuffing consistent with bronchiolitis, but respiratory panel negative - Urine culture did not show evidence of UTI - Confusion most likely due to hyponatremia 3. Diabetes: - Patient is on Pioglitazone outpatient - BSG is acceptable at 115 - Well-controlled - Last Hgb A1C on record is 6 on 06/21/24 (have ranged 5.7- 6.5) - Will continue Pioglitazone 4. Hypothyroidism: - Continue Synthroid - TSH 11.781 on 08/20 5. Ambulatory Dysfunction: - Patient has baseline ambulatory dysfunction and uses a wheelchair at [place], has PT/OT 3x per week Chronic conditions: Hypertension: Continue Valsartan and Nifedipine Hyperlipidemia: Continue Rosuvastatin Sleep apnea: CPAP qHS Ingrown toenails: Apply mupirocin 2% BID Admission and Anticipated Discharge Date Admission Date: September 20, 2024 Total Time Total Time Spent Total Time Spent (In Minutes): I spent 30 mins seeing the patient, reviewing chart, and documenting. Discharge Plan Discharge Items Patient Disposition: Personal Halfway Reason For Visit: HYPONATREMIA Discharge Diagnosis: 1. Hyponatremia Activity: Per Instructions section Non-emergency contact: Primary Care Provider and Rail Operator Call non-emergency contact if: you have any medication questions and your symptoms worsen Follow-up/Referrals: Bogdan Andujar DO [Primary Care Provider] - Diet: Regular Addtl Attending Provider Instructions: You were admitted to the hospital for Severe Hyponatremia. You were treated with Hypertonic Normal Saline. One Medication that you were taking called Desmopressin was contributing to Hyponatremia, so it has been discontinued for the time being. A discharge summary will be sent to your primary care physician to ensure continuity of care. Please bring this discharge summary with you to your next office appointment so that your provider can review it at that time. Follow-up appointments: F/U on Thursday (Sep 26) with your Primary Care Provider. Need to check Basic Metabolic Panel(BMP) to monitor your Sodium. Schedule appointment with your Rail Operator within one week. Keep all your follow-up appointments as already scheduled. If you cannot make an appointment, notify your provider. Medications: Your medication list has been reviewed and reconciled upon discharge to ensure accuracy and continuity of care. An updated list of all your medications is included with your hospital discharge paperwork. Please review this list closely, and make note of any changes. - We sent a new medication called Sodium Chloride to your pharmacy. Take Sodium Chloride 1000 mg one tablet daily twice a day for 4 days -Tylenol PRN for pain -Increased the dose of Mirabegron from 25mg to 75 mg PO daily. If you have any issues filling these prescriptions, please call [phone] and ask to leave a message for Dr. Reed Willis. Take your medications as instructed; do not skip a dose of your medicines. Make sure all of your doctors know every medicine you are taking (including [id number] medici harry, vitamins, and supplements). Call your primary care provider before taking any new medicines (including overthe- counter medicines, vitamins, and supplements), because some of these may interact with your current medications, or may make your symptoms worse. Tell your primary care provider if you cannot afford your medications. CONTACT YOUR PRIMARY CARE PROVIDER if you experience any of the following: Confusion Dizziness, loss of Consciousness Difficulty following your treatment plan, or difficulty taking medications CALL 911 OR GO TO THE EMERGENCY DEPARTMENT if you experience any of the following: Sudden, severe abdominal pain or nausea/vomiting Severe chest pain, or chest pain that radiates (moves) to your jaw or arm Sudden, severe shortness of breath or difficulty breathing Thank you for allowing us to participate in your care. . Pending Studies at Discharge: No Stand-Alone Forms: [facility], Smoking Cessation Skilled Items Patient informed of condition?: Yes DNR: Yes Discharge Level of Care: Skilled Communicable Disease: No Discharge Prognosis: Improving Lines: None Urinary Catheter: No Medications and DC Order Prescriptions: New sodium chloride 1,000 mg Tablet,Soluble 1,000 mg PO BID 4 Days Qty: 8 0RF acetaminophen 325 mg Tablet 650 mg PO Q4H PRN (Reason: fever or pain) Qty: 10 0RF Gemtesa 75 mg Tablet 75 mg PO DAILY Qty: 60 1RF Continued valsartan 40 mg tablet 40 mg PO BID Qty: 180 3RF rosuvastatin [Crestor] 5 mg tablet 5 mg PO DAILY Qty: 90 3RF levothyroxine 112 mcg tablet 112 mcg PO DAILY Qty: 90 3RF pantoprazole [Protonix] 40 mg tablet,delayed release (DR/EC) 40 mg PO DAILY Qty: 90 3RF (DME) CPAP Machine Misc .Route Qty: 1 0RF Rx Instructions: Discontinue oxygen and CPAP lorazepam 0.5 mg tablet 0.5 mg PO TID PRN (Reason: anxiety) Qty: 90 5RF nifedipine 60 mg tablet extended release 60 mg PO DAILY 90 Days Qty: 90 3RF mupirocin 2 % ointment kit 1 applic topical BID pioglitazone 15 mg tablet 15 mg PO DAILY loperamide [Anti-Diarrheal (loperamide)] 2 mg capsule 2 mg PO Q6H PRN (Reason: loose stool) Qty: 14 2RF bupropion HCl 300 mg tablet extended release 24 hr 300 mg PO QAM docusate sodium 100 mg capsule 100 mg PO BID venlafaxine 75 mg capsule,extended release 24hr 75 mg PO UD Rx Instructions: Take 75mg w/ 150mg to equal 225mg every morning venlafaxine 150 mg capsule,extended release 24hr 150 mg PO UD Rx Instructions: Take 150mg w/ 75mg to equal 225mg every morning baclofen 5 mg tablet 5 mg PO HS PRN (Reason: Spasms) Discontinued meclizine 25 mg tablet 25 mg PO BID PRN (Reason: dizziness) Qty: 30 3RF Myrbetriq 25 mg tablet extended release 24 hr 25 mg PO DAILY Qty: 90 3RF desmopressin 0.2 mg tablet 0.2 mg PO HS Discharge Orders: Discharge Order (Routine); Ordered 09/22/24 Ordered By: Reed Willis Admission Data Admit Date/Time: 09/19/24 20:05 Attending Provider: Federico Mansfield Admit Provider: Yissel Tinsley Primary Care Provider: Bogdan Andujar Other Providers: Fabiola Howell; Yissel Tinsley Other Interventions: Discharge Summary Assessment (RN) Last Done: 09/23/24 12:04 Supervising Physician Co-Signing Physician Notes I also saw the patient and confirmed varela portions of the history and exam. This morning, without complaints. She is aware of transport back to home. VSS CV regular Lungs clear with non labored respirations Acute hyponatremia, improved Altered mental status, resolved Nocturia Hypertension Sodium 132, Potassium 4.3 AST 27, ALT 23 OK for discharge today Remain off DDVAP Recheck sodium next week as outpatient
--- NOTE | 2024-09-23 11:12 | Nephrology Progress Note ---
Date of Service September 23, 2024 Assessment & Plan (1) Acute hyponatremia: (2) Altered mental status: (3) Nocturia: (4) Hypertension: Plan Acute hyponatremia, serum sodium 118 with prior sodium low normal. Urine osmolality was 415. Initially received normal saline and then had 3% saline if sodium improving up to 126 but again dropped to 124 this morning. 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 Sodium improved and staying around 131 -- Continue NaCl 1 gm bid, fluid restriction to less than 50 ounces a day, discontinue desmopressin on discharge. Suggest rechecking serum sodium sometime next week if discharge anticipated over the weekend. -- Liberalize salt in diet Will sign off, please contact if further assistance needed. Thank you for the consult. Admission and Anticipated Discharge Date Admission Date: September 19, 2024 Marva Diane was seen and evaluated this morning. She denied any specific symptoms. Sodium improved to 131. Blood pressure fair. Decent urine output, net negative. Review of Systems 2 Review of Systems: Review of system was done and pertinent positives and negatives are mentioned above. Physical Exam Constitutional: WD/WN, vitals as above no acute distress Respiratory: Auscultation: lungs clear to auscultation bilaterally Cardiovascular: RRR, no murmur, no edema Musculoskeletal: Extremities: extremities normal to inspection Skin: no rashes, warm and dry Neurologic: no focal motor deficits Psychiatric: Orientation: alert and oriented x 3 Affect: euthymic affect Results & Data Vital Signs (Past 12 Hours) Vital Signs Temp Pulse Pulse Resp BP Pulse Ox O2 Del Method 09/23/24 08:52 36.7 C 80 18 145/81 H 94 Room Air 09/23/24 07:23 67 09/23/24 03:22 36.8 C 72 16 133/73 95 Room Air 09/23/24 01:46 80 09/22/24 23:45 36.4 C L 84 18 120/78 95 Room Air PG Care Time/CCT Total # of Minutes Spent Total Time Spent with Patient: Total time spent is greater than 50% in coordination of care (as documented) at patient's floor/unit and/or counseling patient: Coding Level of Care Code 77267 SUB INP/OBS CARE 2/35MIN Diagnoses Acute hyponatremia E87.1 Altered mental status R41.82 Nocturia R35.1 Hypertension I10 Hypertension type: unspecified (4) Hypertension Hypertension type: unspecified Qualified Code(s): I10 - Essential (primary) hypertension
[2024-09-23 11:39] VITALS: BP 117/73; TEMP 97.4; O2SAT 95
--- NOTE | 2024-09-25 10:05 | Coding Query ---
CODING QUERY To promote full compliance with coding requirements relating to patient care, provider participation is requested in all cases of air and water filler uncertainty. Please assist us with the question(s) below: Coding Question(s): 74 y/o Pt admitted with hyponatremia, (per Nephrology SIADH possible) with symptoms of confusion, lethargy and nausea. Treated with CT Head, IV NS then hypertonic saline 3% . Progress notes document hyponatremia as etiology of the confusion. Please document, if known or suspected, the diagnosis that describes the confusion d/t hyponatremia if known or suspected. Thanks for your help! Yogi Molina [employer] [facility] Physician's Response(s: Known worsening of confusion in setting of hyponatremia, improvement of confusion with correction of sodium level. Principal Diagnosis: "that condition established after study, to be chiefly responsible for occasioning the admission of the patient to the hospital for care." Co-Existing Principal Diagnosis: "when two or more diagnoses equally meet the criteria for principal diagnosis as determined by the circumstances of admission, diagnostic work up, and/or therapy provided, and the Alphabetic Index, Tabular List, or another coding guideline does not provide sequencing direction, any one of the diagnoses may be sequenced first." "When the physician has documented what appears to be a current diagnosis in the body of the record, but has not included the diagnosis in the final diagnostic statement, the physician should be asked whether the diagnosis should be added." (Source Coding Clinic 2 QTR90. p3-4) [facility]
== END 2024-09-23 13:26 | disposition home or self-care (01) | DRG 643 ==
LOC: ED 15:47 → 2E 20:05 → SUATTDRO 20:05 → 2E 21:31
DX: N31.9 Neuromuscular dysfunction of bladder, unspecified; F32.A Depression, unspecified; T38.895A Adverse effect of other hormones and synthetic substitutes, initial encounter; G93.41 Metabolic encephalopathy; E78.5 Hyperlipidemia, unspecified; E11.51 Type 2 diabetes mellitus with diabetic peripheral angiopathy without gangrene; Z86.73 Personal history of transient ischemic attack (TIA), and cerebral infarction without residual deficits; E22.2 Syndrome of inappropriate secretion of antidiuretic hormone; E03.9 Hypothyroidism, unspecified; R41.0 Disorientation, unspecified; Z88.2 Allergy status to sulfonamides; G47.30 Sleep apnea, unspecified; Z79.890 Hormone replacement therapy; R11.2 Nausea with vomiting, unspecified; Z98.1 Arthrodesis status; M19.90 Unspecified osteoarthritis, unspecified site; I10 Essential (primary) hypertension; Z88.5 Allergy status to narcotic agent

== ENCOUNTER 2025-05-31 15:50 | Inpatient (IN) ==
[2025-05-31] MEDS: FAMOTIDINE 20MG IV PUSH 20 MG/5 ML SYR IV STA (16:20)
[2025-05-31] MEDS: SODIUM CHLORIDE 0.9% 500 ML IV ONE (16:21)
[2025-05-31] MEDS: ACETAMINOPHEN 1,000 MG/100 ML VIAL IV STA (16:22)
[2025-05-31 16:23] LABS: Hematocrit (blood only) 43.4 % (37.0-47.0); Hemoglobin 14.8 g/dl (12.0-16.0); Immature Granulocytes # (auto) 0.06 K/uL (0.01-0.20); Immature Granulocytes % (auto) 0.6 %; Mean Corpuscular Hemoglobin 30.7 pg (25.0-34.0); Mean Corpuscular Volume 90.0 fL (80.0-100.0); Platelet Count 264 K/uL (130-400); RDW Standard Deviation 42.6 fL (36.4-46.3); Red Blood Count 4.82 M/uL (4.20-5.40); White Blood Count 9.54 K/ul (4.8-10.8)
[2025-05-31] MEDS: ONDANSETRON INJ 2 MG/ML 2 ML VIAL IV STA (16:29)
--- NOTE | 2025-05-31 16:29 | Emergency Department Note ---
Impression & Plan Pulmonary embolism, DVT (deep venous thrombosis), Hypoxia, Generalized weakness, Confusion ED Provider Note NAME: FLORES GALLAGHER AGE: 75 SEX: F : 1950 ARRIVES VIA: Ambulance INFORMANT: Patient ED PROVIDER(S): Lei Wu MD CHIEF COMPLAINT: Generalized weakness, increased confusion, nausea vomiting PLAN: Disposition: Admit MEDICAL DECISION MAKING: The patient is a 75-year-old woman with a past medical history of dementia, lumbar spinal stenosis, history of CVA, history of TBI, hypothyroidism, hypertension, hyperlipidemia, GERD who presents to the emergency department from her shelter facility at [facility] for evaluation of generalized weakness, increased confusion from baseline with nausea and vomiting. The patient is a poor historian. On my evaluation the patient is fatigued appearing but no distress, afebrile with O2 saturation 87% on room air improving to low-mid 90s on 2 L nasal cannula. She appears clinically dry. She exhibits generalized weakness without focal extremity weakness. EKG demonstrates baseline left bundle branch block without Sgarbossa criteria and is similar to prior. CXR with bibasilar atelectasis per my personal preliminary review/interpretation. WBC, H/H and platelets within normal limits. There is neutrophilia but no left shift. Chemistry without metabolic acidosis. Electrolytes LFTs unremarkable. High-sensitivity troponin 10.5, within normal limits. Lipase is not elevated. Procalcitonin is not elevated. TSH within normal limits. UA without convincing evidence of infection. Respiratory BioFire was negative. CT of the head and abdomen pelvis were completed. Finalized CT reports pending. Basilar lung views with bibasilar atelectasis though with increased ground glass opacities in the right base suspicious for pneumonia per my preliminary independent interpretation given the clinical context Blood cultures obtained and empiric treatment initiated with IV Zosyn. MRSA swab ordered and pending. Case was discussed with Yolanda Sorensen, [facility] PAC with Dr. Kim, [facility] hospitalist, who will evaluate the patient for admission. CT reports were finalized by radiology and CT of the head was negative for acute or maladies. CT of the abdomen pelvis demonstrates bilateral pulmonary emboli in the distal main pulmonary arteries extending into the lower lobar segmental and subsegmental arteries. DVT of the right common femoral and superficial and deep femoral veins are also noted. Mild pericolonic inflammation surrounding the sigmoid could represent mild diverticulitis. Mild thickening of the rectum may suggest proctitis. Admitting team updated on finalized CT reports. Further management per admitting team. Triage Nursing notes reviewed and agree them. Prior/external medical records reviewed Vital Signs: reviewed Differential diagnosis: Infection, dehydration, metabolic abnormality, hypo/hyperglycemia, electrolyte disturbance, anemia, hypoxia, cardiac sources, intracerebral event, toxicologic, neurologic, as well as other pathologies. ER treatment provided: See below. Diagnostics interpreted by me: ECG: Normal sinus rhythm, 90 bpm, no ectopy, left bundle branch block, no Sgarbossa criteria, QTc 469, QRS 122. Similar to prior. Cardiac Monitoring: An order for continuous cardiac monitoring was placed and demonstrated Normal sinus rhythm, 90 bpm, no ectopy. Laboratory studies: See below Imaging studies: See below Consultation(s): Yoalnda Sorensen, [facility] PAC with Dr. Kim [facility] hospitalist HPI: Per MDM. ROS: See above HPI for pertinent positives & negatives. A total of 10 systems reviewed and were otherwise negative. VITALS:See Below PHYSICAL EXAMINATION: GENERAL: Awake, alert, fatigued-appearing, in no distress HENT: Normocephalic, atraumatic. Oropharynx with dry mucous membranes and otherwise unremarkable. EYES: Normal conjunctiva. Sclera non-icteric. EOMI. No nystamgus. PEARRL. NECK: Supple. No nuchal rigidity. FROM. No JVD. RESPIRATORY: Clear to auscultation. CARDIAC: Regular rate, normal rhythm. Extremities warm and well perfused. Pulses equal. MUSCULOSKELETAL: Chest examination reveals no tenderness. The back is symmetrical on inspection without obvious abnormality. There is no CVA tenderness to palpation. No joint edema. LOWER EXTREMITIES: Calves are equal size bilaterally and non-tender. No edema. No discoloration. NEURO: Mild confusion in the setting of dementia. Generalized weakness without focal extremity weakness. SKIN: No rash or jaundice noted. Lei Wu MD Past Med/Surg History Problem List (Updated 06/01/25 @ 20:52 by Lei Wu MD) Confusion (Acute) Generalized weakness (Acute) Hypoxia (Acute) DVT (deep venous thrombosis) (Acute) Pulmonary embolism (Acute) Hypoxia Hypertension (Acute) Hyperlipidemia (Acute) Nausea & vomiting (Acute) Acute hyponatremia (Acute) Hyponatremia Other specified peripheral vascular diseases Cellulitis of right toe Contusion of right great toe with damage to nail, initial encounter Weakness (Acute) Acute confusion (Acute) Altered mental status History of traumatic brain injury Ambulatory dysfunction Nocturia Spasticity as late effect of cerebrovascular accident (CVA) Gait disorder Low back pain DVT femoral (deep venous thrombosis) with thrombophlebitis Weakness of left arm Depression Epidural lipomatosis Stenosis, spinal, lumbar History of cervical spinal surgery C5-C6, C6-C7 in 2005; C4-C5 IN 01/2013 Lumbar vertebral fracture Neurogenic bladder Left leg weakness Fracture of fourth lumbar vertebra Vertigo due to brain injury Urinary incontinence Delirium due to known physiological condition Urinary frequency 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 59 minutes Microalbuminuria Anxiety Chest pain Hypothyroidism Osteoarthritis Mood disorder Raynaud disease Colonic adenoma Sleep apnea Diabetes (Chronic) Medical History Edema of left lower leg 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) From a fall-has urgent orthopedic consult ordered Lumbar disc disease with radiculopathy Increased urinary frequency Basal cell carcinoma right med calf Cellulitis Carpal tunnel syndrome Surgical History S/P blepharoplasty 11/15/13 History of surgical fusion joint History of carpal tunnel repair left 08/2010 History of oral surgery History of tubal ligation Family History Mother Hypothyroidism Dyslipidemia Renal failure Heart failure Skin cancer basal cell Arthritis Father Hypertension Heart disease Dyslipidemia Skin cancer (melanoma) basal cell Melanoma of multiple sites Parkinson disease Sister Multiple sclerosis Brother Polymyositis Arthritis Melanoma of multiple sites Glaucoma Denies family history of Ovarian cancer Breast cancer Social History Smoking Status: Never smoker Second Hand Exposure: No; Do You Dip or Chew Tobacco: No; Tobacco Cessation Education Requested by Patient: No Hx Alcohol Use: No Hx Substance Use: No Preferred Language: Hong Konger Communication Ability: Effective Visual Impairment: Diminished Hearing Ability: Normal Ice Guard Tester Required: No Beliefs That Will Affect Care: None marital status: Current Living Situation: Jail Current Living Situation Comment: lives with sister and [id number] current occupational status: employed current occupation: [employer] How many Children do You have: 0 Other Information That Helps Us Care for You: No Feels Safe at Home: Yes Safety Concerns: Feels Safe At This Time Childhood Exposure to Second-Hand Smoke: No Diet: regular caffeine: Yes (1 cup a day) Dental Care, Regularly: Yes Physical Activity Frequency: Does not Exercise Seatbelt Use: always Sunscreen Use: Yes Assistive Devices: Walker Allergies Allergies Allergy/AdvReac Type Severity Reaction Status Date / Time adhesive Allergy Mild RASH Verified 07/21/24 10:22 esomeprazole Allergy Mild RASH Verified 07/21/24 10:22 gabapentin Allergy Mild RASH Verified 07/21/24 10:22 hydrochlorothiazide Allergy Mild RASH-MICARD Verified 07/21/24 10:22 IS omeprazole Allergy Mild Rash Verified 07/21/24 10:22 Sulfa (Sulfonamide Allergy Mild RASH Verified 07/21/24 10:22 Antibiotics) telmisartan Allergy Mild RASH-MICARD Verified 07/21/24 10:22 IS thimerosal Allergy Unknown POSITIVE Verified 07/21/24 10:22 ALLERGY TEST codeine AdvReac Mild NAUSEA Verified 07/21/24 10:22 propoxyphene AdvReac Mild NAUSEA Verified 07/21/24 10:22 promethazine [From Phenergan] AdvReac abnormal Verified 05/31/25 20:26 movements Home Meds Home Medications Medication Instructions Recorded Confirmed venlafaxine 150 mg 150 mg PO UD 06/20/24 05/31/25 capsule,extended release 24 hr bupropion HCl 300 mg 24 hr tablet, 300 mg PO QAM 07/21/24 05/31/25 extended release docusate sodium 100 mg capsule 100 mg PO BID PRN Constipation 07/21/24 05/31/25 baclofen 10 mg tablet 10 mg PO HS PRN Spasms 05/31/25 05/31/25 donepezil 5 mg tablet 5 mg PO DAILY 05/31/25 05/31/25 famotidine 20 mg tablet 20 mg PO BID 05/31/25 05/31/25 mirabegron 25 mg tablet,extended 25 mg PO DAILY 05/31/25 05/31/25 release 24 hr (Myrbetriq) Previous Rx's Medication Instructions Recorded loperamide 2 mg capsule 2 mg PO Q6H PRN loose stool #14 11/05/23 (Anti-Diarrheal (loperamide)) caps valsartan 40 mg tablet 40 mg PO BID #180 tabs 12/14/23 pantoprazole 40 mg tablet,delayed 40 mg PO DAILY #90 tabs 12/23/23 release (Protonix) lorazepam 0.5 mg tablet 0.5 mg PO TID PRN anxiety #90 tabs 02/29/24 nifedipine 60 mg tablet,extended 60 mg PO DAILY 90 days #90 tabs 03/01/24 release venlafaxine 75 mg capsule,extended 75 mg PO UD #90 caps 12/07/24 release 24 hr levothyroxine 112 mcg tablet 112 mcg PO DAILY #90 tabs 01/23/25 rosuvastatin 5 mg tablet (Crestor) 5 mg PO DAILY #90 tabs 01/23/25 Results & Data (ED) Vital Signs Vital Signs - 24 hr 05/31/25 16:00 05/31/25 16:00 05/31/25 16:07 Temperature 36.8 C Temperature Source Oral Pulse Rate 88 Pulse Rate [Apical] Respiratory Rate 21 Respiratory Effort / Characteristics Non-Labored Spontaneous Respiratory Depth Normal Respiratory Pattern Regular Blood Pressure 119/79 Blood Pressure [Right Arm] Blood Pressure Mean 92 Blood Pressure Mean [Right Arm] Pulse Oximetry 87 L 87 L 94 Oxygen Delivery Method Room Air Room Air Nasal Cannula Oxygen Flow Rate 0 2 Sepsis Recent Fever Within 48 Hours No Sepsis New/Unexplained Change in Mental Status No Sepsis Action Taken by Nursing No Action Required Oxygen Flow Rate - Titration 2 Pulse Oximetry Post Tiitration 94 05/31/25 17:41 05/31/25 18:00 Temperature Temperature Source Pulse Rate 86 Pulse Rate [Apical] 85 Respiratory Rate 19 Respiratory Effort / Characteristics Non-Labored Spontaneous Respiratory Depth Normal Respiratory Pattern Regular Blood Pressure Blood Pressure [Right Arm] 116/63 Blood Pressure Mean Blood Pressure Mean [Right Arm] 80 Pulse Oximetry 91 Oxygen Delivery Method Nasal Cannula Oxygen Flow Rate 2 Sepsis Recent Fever Within 48 Hours Sepsis New/Unexplained Change in Mental Status Sepsis Action Taken by Nursing Oxygen Flow Rate - Titration Pulse Oximetry Post Tiitration Laboratory Data Attestation: I reviewed the patient's lab results. 06/01/25 06:37 06/01/25 06:37 Lab Results 05/31/25 05/31/25 05/31/25 Range/Units 16:00 16:23 16:25 WBC 9.54 (4.8-10.8) K/ul RBC 4.82 (4.20-5.40) M/uL Hgb 14.8 (12.0-16.0) g/dl POC Hgb 15.3 (12.0-16.0) g/dl Hct 43.4 (37.0-47.0) % POC Hct 45 (37-47) % MCV 90.0 (80.0-100.0) fL MCH 30.7 (25.0-34.0) pg MCHC 34.1 (32.0-36.0) g/dL RDW Std Deviation 42.6 (36.4-46.3) fL RDW Coeff of Manuel 12.9 (11.5-14.5) % Plt Count 264 (130-400) K/uL MPV 8.9 L (9.4-12.4) fL Immature Gran % (Auto) 0.6 % Neut % (Auto) 73.4 % Lymph % (Auto) 14.4 % [place] % (Auto) 10.6 % Eos % (Auto) 0.6 % Baso % (Auto) 0.4 % Neut # (Auto) 7.00 H (1.40-6.50) K/uL Lymph # (Auto) 1.37 (1.20-3.40) K/uL [place] # (Auto) 1.01 H (0.11-0.59) K/uL Eos # (Auto) 0.06 (0.00-0.50) K/uL Baso # (Auto) 0.04 (0.00-0.20) K/uL Immature Gran # (Auto) 0.06 (0.01-0.20) K/uL POC Sodium 140 (135-144) mmol/L Sodium 138 (136-145) mmol/L POC Potassium 3.5 (3.3-5.0) mmol/L Potassium 3.5 (3.5-5.1) mmol/L POC Chloride 102 (101-112) mmol/L Chloride 102 (98-107) mmol/L Carbon Dioxide 24 (21-32) mmol/L POC Total CO2 26 (24-31) mmol/L Anion Gap 12 H (3-11) POC Anion Gap 17.0 (16-25) mmol/L POC BUN 27 H (7-18) mg/dl BUN 27 H (6-23) mg/dl Creatinine 1.16 (0.6-1.2) mg/dl POC Creatinine 1.3 (0.6-1.3) mg/dl Est Cr Clr Drug Dosing 35.5 ml/min eGFR 48.86 BUN/Creatinine Ratio 23.3 H (10-20) Glucose 114 H (70-99(Fasting)) mg/dl POC Glucose (other) 115 H (70-99) mg/dl Calcium 9.3 (8.6-10.3) mg/dl POC Ioniz Calcium Josias 1.13 (1.12-1.32) mmol/l Phosphorus 3.6 (2.5-4.9) mg/dl Magnesium 1.8 (1.7-2.4) mg/dl Total Bilirubin 0.8 (0.2-1.0) mg/dl AST 15 (13-39) U/L ALT 12 (7-52) U/L Alkaline Phosphatase 59 (34-104) U/L Troponin I High Sens 10.5 (0-14) pg/ml Total Protein 7.4 (6.0-8.3) gm/dl Albumin 3.7 (3.4-5.0) gm/dl Globulin 3.7 (2.5-4.0) gm/dl Albumin/Globulin Ratio 1.0 (0.9-2) Lipase 5 L (11-82) U/L Procalcitonin 0.10 (0-0.5) ng/ml TSH 2.364 (0.300-4.500) uIu/ml Urine Color Urine Appearance (Clear) Urine pH (4.5-7.5) Ur Specific Vincent (1.000-1.030) Urine Protein (Negative) Urine Glucose (UA) (Negative) Urine Ketones (Negative) Urine Blood (Negative) Urine Nitrite (Negative) Urine Bilirubin (Negative) Urine Urobilinogen (Negative) Ur Leukocyte Esterase (Negative) Urine WBC (Auto) (0-5) /hpf Urine RBC (Auto) (0-2) /hpf U Hyaline Cast (Auto) (0-2) /lpf U Epithel Cells (Auto) (0-2) /hpf Urine Bacteria (Auto) (None Seen) Hyaline Casts (None Presnt) /lpf Urine Mucus (None Prsent) Urine Comment Adenovirus (PCR) Not Detected (NotDetected) B. pertussis DNA (PCR) Not Detected (NotDetected) B.parapertussis DNA PCR Not Detected (NotDetected) C. pneumoniae DNA (PCR) Not Detected (NotDetected) Coronavirus OC43 (PCR) Not Detected (NotDetected) Coronavirus HKU1 (PCR) Not Detected (NotDetected) Coronavirus 229E (PCR) Not Detected (NotDetected) SARS-CoV-2 (PCR) Not Detected (NotDetected) Coronavirus NL63 (PCR) Not Detected (NotDetected) Human Metapneumovir PCR Not Detected (NotDetected) Influenza Type A (PCR) Not Detected (NotDetected) Influenza Type B (PCR) Not Detected (NotDetected) M. pneumoniae (PCR) Not Detected (NotDetected) Parainfluenza 1 (PCR) Not Detected (NotDetected) Parainfluenza 2 (PCR) Not Detected (NotDetected) Parainfluenza 3 (PCR) Not Detected (NotDetected) Parainfluenza 4 (PCR) Not Detected (NotDetected) RSV (PCR) Not Detected (NotDetected) Entero/Rhino (PCR) Not Detected (NotDetected) 05/31/25 Range/Units 18:55 WBC (4.8-10.8) K/ul RBC (4.20-5.40) M/uL Hgb (12.0-16.0) g/dl POC Hgb (12.0-16.0) g/dl Hct (37.0-47.0) % POC Hct (37-47) % MCV (80.0-100.0) fL MCH (25.0-34.0) pg MCHC (32.0-36.0) g/dL RDW Std Deviation (36.4-46.3) fL RDW Coeff of Manuel (11.5-14.5) % Plt Count (130-400) K/uL MPV (9.4-12.4) fL Immature Gran % (Auto) % Neut % (Auto) % Lymph % (Auto) % [place] % (Auto) % Eos % (Auto) % Baso % (Auto) % Neut # (Auto) (1.40-6.50) K/uL Lymph # (Auto) (1.20-3.40) K/uL [place] # (Auto) (0.11-0.59) K/uL Eos # (Auto) (0.00-0.50) K/uL Baso # (Auto) (0.00-0.20) K/uL Immature Gran # (Auto) (0.01-0.20) K/uL POC Sodium (135-144) mmol/L Sodium (136-145) mmol/L POC Potassium (3.3-5.0) mmol/L Potassium (3.5-5.1) mmol/L POC Chloride (101-112) mmol/L Chloride (98-107) mmol/L Carbon Dioxide (21-32) mmol/L POC Total CO2 (24-31) mmol/L Anion Gap (3-11) POC Anion Gap (16-25) mmol/L POC BUN (7-18) mg/dl BUN (6-23) mg/dl Creatinine (0.6-1.2) mg/dl POC Creatinine (0.6-1.3) mg/dl Est Cr Clr Drug Dosing ml/min eGFR BUN/Creatinine Ratio (10-20) Glucose (70-99(Fasting)) mg/dl POC Glucose (other) (70-99) mg/dl Calcium (8.6-10.3) mg/dl POC Ioniz Calcium Josias (1.12-1.32) mmol/l Phosphorus (2.5-4.9) mg/dl Magnesium (1.7-2.4) mg/dl Total Bilirubin (0.2-1.0) mg/dl AST (13-39) U/L ALT (7-52) U/L Alkaline Phosphatase (34-104) U/L Troponin I High Sens (0-14) pg/ml Total Protein (6.0-8.3) gm/dl Albumin (3.4-5.0) gm/dl Globulin (2.5-4.0) gm/dl Albumin/Globulin Ratio (0.9-2) Lipase (11-82) U/L Procalcitonin (0-0.5) ng/ml TSH (0.300-4.500) uIu/ml Urine Color Dark Yellow Urine Appearance Clear (Clear) Urine pH 5.5 (4.5-7.5) Ur Specific Vincent > 1.045 H (1.000-1.030) Urine Protein Trace H (Negative) Urine Glucose (UA) Negative (Negative) Urine Ketones 1+ H (Negative) Urine Blood Negative (Negative) Urine Nitrite Negative (Negative) Urine Bilirubin Negative (Negative) Urine Urobilinogen Negative (Negative) Ur Leukocyte Esterase Negative (Negative) Urine WBC (Auto) 0-5 (0-5) /hpf Urine RBC (Auto) 0-2 (0-2) /hpf U Hyaline Cast (Auto) >20 H (0-2) /lpf U Epithel Cells (Auto) 11-20 H (0-2) /hpf Urine Bacteria (Auto) None Seen (None Seen) Hyaline Casts Present A (None Presnt) /lpf Urine Mucus Present A (None Prsent) Urine Comment Adenovirus (PCR) (NotDetected) B. pertussis DNA (PCR) (NotDetected) B.parapertussis DNA PCR (NotDetected) C. pneumoniae DNA (PCR) (NotDetected) Coronavirus OC43 (PCR) (NotDetected) Coronavirus HKU1 (PCR) (NotDetected) Coronavirus 229E (PCR) (NotDetected) SARS-CoV-2 (PCR) (NotDetected) Coronavirus NL63 (PCR) (NotDetected) Human Metapneumovir PCR (NotDetected) Influenza Type A (PCR) (NotDetected) Influenza Type B (PCR) (NotDetected) M. pneumoniae (PCR) (NotDetected) Parainfluenza 1 (PCR) (NotDetected) Parainfluenza 2 (PCR) (NotDetected) Parainfluenza 3 (PCR) (NotDetected) Parainfluenza 4 (PCR) (NotDetected) RSV (PCR) (NotDetected) Entero/Rhino (PCR) (NotDetected) Administered Medications Apixaban (Apixaban 5 Mg Tablet) 10 mg PO BID ZAIRE Stop: 06/07/25 09:01 Last Admin: 06/01/25 19:57 Dose: 10 mg Documented By: Admin: 06/01/25 08:22 Dose: 10 mg Documented By: crystal Admin: 05/31/25 23:06 Dose: 10 mg Documented By: suzette Bupropion HCl (Bupropion Xl 300 Mg Tabcr) 300 mg PO QAM [facility] Stop: 07/01/25 08:59 Last Admin: 06/01/25 08:22 Dose: 300 mg Documented By: crystal Donepezil HCl (Donepezil Hcl 5 Mg Tab) 5 mg PO DAILY ZAIRE Stop: 07/01/25 08:59 Last Admin: 06/01/25 08:22 Dose: 5 mg Documented By: crystal Famotidine (Famotidine 20 Mg Tab) 20 mg PO BID [facility] Stop: 06/30/25 22:29 Last Admin: 06/01/25 19:57 Dose: 20 mg Documented By: Admin: 06/01/25 08:30 Dose: 20 mg Documented By: crystal Admin: 05/31/25 23:10 Dose: 20 mg Documented By: suzette Piperacillin Sod/Tazobactam Sod (Zosyn) 4.5 gm in 100 mls @ 25 mls/hr IV Q8H [facility]; Protocol Stop: 06/06/25 00:00 Last Infusion: 06/01/25 19:43 Dose: Infused Documented By: Admin: 06/01/25 15:39 Dose: 25 mls/hr Documented By: rufus Infusion: 06/01/25 12:21 Dose: Infused Documented By: crystal Admin: 06/01/25 08:19 Dose: 25 mls/hr Documented By: crystal Infusion: 06/01/25 03:25 Dose: Infused Documented By: suzette Admin: 05/31/25 23:14 Dose: 25 mls/hr Documented By: suzette Insulin Aspart (Insulin Aspart Per Unit Charge) 0 units SC ACHS [facility] Stop: 06/30/25 22:09 Last Admin: 06/01/25 18:11 Dose: Not Given Documented By: rufus Admin: 06/01/25 14:05 Dose: 2 units Documented By: crystal Co-signed By: JAMEY Admin: 06/01/25 09:44 Dose: Not Given Documented By: crystal Admin: 05/31/25 23:03 Dose: Not Given Documented By: suzette Levothyroxine Sodium (Levothyroxine Sodium 112 Mcg Tablet) 112 mcg PO DAILYBB ZAIRE Stop: 07/01/25 06:29 Last Admin: 06/01/25 05:49 Dose: 112 mcg Documented By: suzette Nifedipine (Nifedipine Extended Rel 30 Mg Tabcr) 60 mg PO DAILY ZAIRE Stop: 07/01/25 08:59 Last Admin: 06/01/25 08:22 Dose: 60 mg Documented By: crystal Nystatin (Nystatin Cr 15 Gm Tube) 1 appln EXT BID ZAIRE Stop: 06/30/25 20:59 Last Admin: 06/01/25 19:58 Dose: 1 appln Documented By: Admin: 06/01/25 08:23 Dose: 1 appln Documented By: crystal Admin: 05/31/25 23:06 Dose: 1 appln Documented By: suzette Pantoprazole Sodium (Pantoprazole 40 Mg Tab) 40 mg PO DAILY ZAIRE Stop: 07/01/25 08:59 Last Admin: 06/01/25 08:22 Dose: 40 mg Documented By: crystal Rosuvastatin Calcium (Rosuvastatin Calcium 5 Mg Tab) 5 mg PO DAILY ZAIRE Stop: 07/01/25 08:59 Last Admin: 06/01/25 08:22 Dose: 5 mg Documented By: crystal Valsartan (Valsartan 80 Mg Tab) 40 mg PO BID [facility] Stop: 06/30/25 22:29 Last Admin: 06/01/25 08:21 Dose: 40 mg Documented By: crystal Admin: 06/01/25 00:06 Dose: Not Given Documented By: suzette Venlafaxine HCl (Venlafaxine Hcl Xr 150 Mg Capxr) [facility] [place]: 06/30/25 22:29 Last Admin: 06/01/25 08:22 Dose: 150 mg Documented By: crystal Admin: 05/31/25 23:05 Dose: 150 mg Documented By: suzette Venlafaxine HCl (Venlafaxine Hcl Xr 75 Mg Capxr) 75 mg PO QAM [facility] Stop: 06/30/25 22:29 Last Admin: 06/01/25 08:22 Dose: 75 mg Documented By: crystal Admin: 05/31/25 23:05 Dose: 75 mg Documented By: suzette Vibegron (Vibegron 75 Mg Tab) 75 mg PO DAILY [facility] Stop: 07/01/25 08:59 Last Admin: 06/01/25 08:22 Dose: 75 mg Documented By: crystal Discontinued Medications Sodium Chloride (Nss) 500 mls @ 999 mls/hr IV .Q31M ONE Stop: 05/31/25 16:39 Last Infusion: 05/31/25 17:11 Dose: Infused Documented By: Admin: 05/31/25 16:21 Dose: 999 mls/hr Documented By: LISA Famotidine (Pepcid 20mg Iv Push) 20 mg in 5 mls @ 2.5 mls/min IV NOW STA Stop: 05/31/25 16:10 Last Admin: 05/31/25 16:20 Dose: 2.5 mls/min Documented By: LISA Acetaminophen (Ofirmev) 1,000 mg in 100 mls @ 400 mls/hr IV NOW STA Stop: 05/31/25 16:23 Last Infusion: 05/31/25 16:46 Dose: Infused Documented By: Admin: 05/31/25 16:22 Dose: 400 mls/hr Documented By: LISA Piperacillin Sod/Tazobactam Sod (Zosyn) 4.5 gm in 100 mls @ 200 mls/hr IV NOW ONE; Protocol Stop: 05/31/25 19:13 Last Infusion: 05/31/25 20:03 Dose: Infused Documented By: Admin: 05/31/25 19:17 Dose: 200 mls/hr Documented By: LISA Ioversol (Optiray 320 100ml) 93 ml IV ONCE ONE Stop: 05/31/25 17:26 Last Admin: 05/31/25 17:26 Dose: 93 ml Documented By: ZULEIMA Ioversol (Optiray 320 125ml) 112 ml IV ONCE ONE Stop: 06/01/25 09:50 Last Admin: 06/01/25 09:50 Dose: 112 ml Documented By: BISHNU Ondansetron HCl (Ondansetron Inj 2 Mg/Ml 2 Ml Vial) 4 mg IV NOW STA Stop: 05/31/25 16:26 Last Admin: 05/31/25 16:29 Dose: 4 mg Documented By: LISA Potassium Chloride (Potassium Chloride Crtab 20 Meq Tabcr) 40 meq PO NOW STA Stop: 06/01/25 08:20 Last Admin: 06/01/25 08:30 Dose: 40 meq Documented By: crystal Imaging Data Radiologist's Impression: Chest X-Ray 05/31/25 16:07 Clinical History: Chest pain Technique: A frontal view of the chest was obtained Findings: There are no confluent pulmonary infiltrates. The heart size is within normal limits. No pleural effusion or pneumothorax is seen. There is mild left lung base atelectasis No fracture is noted. There is a cervical fusion Impression: Mild left lung base atelectasis Electronically signed by Jonathan Read 05-31-2025 5:11 PM Abdomen/Pelvis CT 05/31/25 16:08 CT ABDOMEN and PELVIS with INTRAVENOUS CONTRAST HISTORY: Abdominal pain TECHNIQUE: CT abdomen and pelvis with contrast. IV CONTRAST: 100 mL of OMNIPAQUE 300 ENTERIC CONTRAST: Not Given COMPARISON: CT abdomen and pelvis September 19, 2024 FINDINGS: LOWER CHEST: There are bilateral pulmonary emboli in the distal main pulmonary arteries extending into the lower lobar segmental and subsegmental arteries. Cardiomegaly. Mild interstitial pulmonary edema. Patchy bibasilar densities may represent pulmonary infarcts LIVER: No focal lesion identified. Hepatic steatosis GALLBLADDER/BILIARY: Unremarkable gallbladder. No abnormal biliary dilatation. SPLEEN: Unremarkable. PANCREAS: Unremarkable. ADRENALS: Unremarkable. KIDNEYS: Mild cortical atrophy with scarring. Tiny cortical cysts. No stones or hydronephrosis identified. PERITONEUM/RETROPERITONEUM. No lymphadenopathy by size criteria. No aortic aneurysm. Moderate atherosclerosis GASTROINTESTINAL: No obstruction. Small hiatal hernia. Mild pericolonic inflammation surrounding the sigmoid colon could represent mild diverticulitis. Mild wall thickening of the rectum and the anus. REPRODUCTIVE: Right adnexal cyst measuring 1.6 cm. BONES: No acute findings. Unchanged mild compression changes of the lumbar spine vertebral bodies Deep venous thrombosis of the right common femoral and superficial and deep femoral veins IMPRESSION: Bilateral pulmonary emboli in the distal main pulmonary arteries extending into the lower lobar segmental and subsegmental arteries. Recommend CTPA for further assessment. Deep venous thrombosis of the right common femoral and superficial and deep femoral veins Mild pericolonic inflammation surrounding the sigmoid colon could represent mild diverticulitis. Mild wall thickening of the rectum and the anus may be due to proctitis. Electronically signed by Akash Pillai 05-31-2025 7:[address] 05/31/25 16:08 Technique: Axial computed tomography images were obtained of the brain without intravenous contrast. Comparison is made to the prior CT dated 10/03/2024 Findings: There is unchanged cerebral atrophy, within expected limits for the patient's age. Areas of decreased attenuation are seen within the periventricular white matter, likely representing chronic small vessel ischemic disease. There is no definite sign of acute or old infarction. No intracranial hemorrhage is evident. No definite mass lesion is seen on this noncontrast examination. There is no midline shift or other form of herniation. No hydrocephalus is seen. No fracture is identified. The orbits and the visualized paranasal sinuses appear unremarkable. The mastoid air cells appear clear. Impression: 1. Cerebral atrophy and chronic small vessel ischemic disease 2. Otherwise unremarkable noncontrast CT of the brain Electronically signed by Jonathan Read 05-31-2025 6:09 PM Discharge Plan Visit Data Chief Complaint: Altered Mental Status Stated Complaint: AMS ED Provider: Lei Wu Discharge Problem: Pulmonary embolism, DVT (deep venous thrombosis), Hypoxia, Generalized weakness, Confusion Patient Disposition: Admitted As Inpatient Condition: Serious Discharge Instructions Interventions: ED Discharge Assessment Last Done: 05/31/25 21:50 Discharge Problem: Pulmonary embolism Qualifiers: Pulmonary embolism type: unspecified Chronicity: acute Acute cor pulmonale presence: unspecified Qualified Code(s): I26.99 - Other pulmonary embolism without acute cor pulmonale DVT (deep venous thrombosis) Qualifiers: DVT location: lower extremity Affected thrombotic vein of extremity: femoral C hronicity: acute Laterality: right Qualified Code(s): I82.411 - Acute embolism and thrombosis of right femoral vein
[2025-05-31 16:42] LABS: Alanine Aminotransferase 12.0 U/L (7-52); Albumin Globulin Ratio 1.0 (0.9-2); Albumin Level 3.7 gm/dl (3.4-5.0); Alkaline Phosphatase 59.0 U/L (34-104); Anion Gap 12.0 (3-11); Bilirubin,Total 0.8 mg/dl (0.2-1.0); Blood Urea Nitrogen 27.0 mg/dl (6-23); Calcium 9.3 mg/dl (8.6-10.3); Carbon Dioxide 24.0 mmol/L (21-32); Chloride 102.0 mmol/L (98-107); Creatinine Clr Calc Pharmacy 35.5 ml/min; Globulin 3.7 gm/dl (2.5-4.0); Glucose 114.0 mg/dl (70-99(Fasting)); Lipase 5.0 U/L (11-82); Magnesium 1.8 mg/dl (1.7-2.4); Potassium 3.5 mmol/L (3.5-5.1); Sodium 138.0 mmol/L (136-145); Total Protein 7.4 gm/dl (6.0-8.3)
[2025-05-31 16:56] LABS: Thyroid Stimulating Hormone 2.364 uIu/ml (0.300-4.500)
--- NOTE | 2025-05-31 17:12 | XRay Report ---
Clinical History: Chest pain Technique: A frontal view of the chest was obtained Findings: There are no confluent pulmonary infiltrates. The heart size is within normal limits. No pleural effusion or pneumothorax is seen. There is mild left lung base atelectasis No fracture is noted. There is a cervical fusion Impression: Mild left lung base atelectasis Electronically signed by Jonathan Read 05-31-2025 5:11 PM
[2025-05-31] MEDS: OPTIRAY 320 100ml IV ONE (17:26)
[2025-05-31 17:32] LABS: Chlamydia pneumoniae PCR Not Detected (NotDetected); Coronavirus 229E PCR Not Detected (NotDetected); Coronavirus CoV-2 (COVID19)PCR Not Detected (NotDetected); Coronavirus HKU1 PCR Not Detected (NotDetected); Coronavirus NL63 PCR Not Detected (NotDetected); Coronavirus OC43PCR Not Detected (NotDetected); Human Metapneumovirus PCR Not Detected (NotDetected); Parainfluenza Virus 1 PCR Not Detected (NotDetected); Parainfluenza Virus 2 PCR Not Detected (NotDetected); Parainfluenza Virus 3 PCR Not Detected (NotDetected); Parainfluenza Virus 4 PCR Not Detected (NotDetected); Respiratory Syncytial VirusPCR Not Detected (NotDetected); Rhinovirus/Enterovirus PCR Not Detected (NotDetected)
--- NOTE | 2025-05-31 18:10 | CT Scan Report ---
Technique: Axial computed tomography images were obtained of the brain without intravenous contrast. Comparison is made to the prior CT dated 10/03/2024 Findings: There is unchanged cerebral atrophy, within expected limits for the patient's age. Areas of decreased attenuation are seen within the periventricular white matter, likely representing chronic small vessel ischemic disease. There is no definite sign of acute or old infarction. No intracranial hemorrhage is evident. No definite mass lesion is seen on this noncontrast examination. There is no midline shift or other form of herniation. No hydrocephalus is seen. No fracture is identified. The orbits and the visualized paranasal sinuses appear unremarkable. The mastoid air cells appear clear. Impression: 1. Cerebral atrophy and chronic small vessel ischemic disease 2. Otherwise unremarkable noncontrast CT of the brain Electronically signed by Jonathan Read 05-31-2025 6:09 PM
[2025-05-31] MEDS: PIPERACILLIN/TAZOBACTAM 4.5 GM/100 ML BAG IV ONE (19:17)
[2025-05-31 19:28] LABS: Appearance Urine Clear (Clear); Bacteria Urine Automated None Seen (None Seen); Cast Urine Automated >20 /lpf (0-2); Glucose Urine UA Negative (Negative); RBC Urine Automated 0-2 /hpf (0-2); WBC Urine Automated 0-5 /hpf (0-5)
--- NOTE | 2025-05-31 19:50 | CT Scan Report ---
CT ABDOMEN and PELVIS with INTRAVENOUS CONTRAST HISTORY: Abdominal pain TECHNIQUE: CT abdomen and pelvis with contrast. IV CONTRAST: 100 mL of OMNIPAQUE 300 ENTERIC CONTRAST: Not Given COMPARISON: CT abdomen and pelvis September 19, 2024 FINDINGS: LOWER CHEST: There are bilateral pulmonary emboli in the distal main pulmonary arteries extending into the lower lobar segmental and subsegmental arteries. Cardiomegaly. Mild interstitial pulmonary edema. Patchy bibasilar densities may represent pulmonary infarcts LIVER: No focal lesion identified. Hepatic steatosis GALLBLADDER/BILIARY: Unremarkable gallbladder. No abnormal biliary dilatation. SPLEEN: Unremarkable. PANCREAS: Unremarkable. ADRENALS: Unremarkable. KIDNEYS: Mild cortical atrophy with scarring. Tiny cortical cysts. No stones or hydronephrosis identified. PERITONEUM/RETROPERITONEUM. No lymphadenopathy by size criteria. No aortic aneurysm. Moderate atherosclerosis GASTROINTESTINAL: No obstruction. Small hiatal hernia. Mild pericolonic inflammation surrounding the sigmoid colon could represent mild diverticulitis. Mild wall thickening of the rectum and the anus. REPRODUCTIVE: Right adnexal cyst measuring 1.6 cm. BONES: No acute findings. Unchanged mild compression changes of the lumbar spine vertebral bodies Deep venous thrombosis of the right common femoral and superficial and deep femoral veins IMPRESSION: Bilateral pulmonary emboli in the distal main pulmonary arteries extending into the lower lobar segmental and subsegmental arteries. Recommend CTPA for further assessment. Deep venous thrombosis of the right common femoral and superficial and deep femoral veins Mild pericolonic inflammation surrounding the sigmoid colon could represent mild diverticulitis. Mild wall thickening of the rectum and the anus may be due to proctitis. Electronically signed by Akash Pillai 05-31-2025 7:50 PM
--- NOTE | 2025-05-31 19:55 | History & Physical Report ---
<Statement entered by Nabil Kim, DO - 06/01/25 11:08> Late attestation: I have seen and examined the patient and have discussed the case with the advance practice provider on the day of admission. I have reviewed the advanced practitioner's documentation, and I agree with, and take responsibility for that plan of care. Patient seen while still in the ED. Family members at bedside. Reports had some nausea and vomiting a few days ago. Data available at the time of evaluation raises concern for possible aspiration pneumonia. Treatment as outlined below Notified of results of CTA of the abdomen and pelvis. Noted DVT in femoral veins as well as pulmonary embolism. Patient's vital signs stable. Can start Eliquis for DVT treatment. Assessment: 1-Bilateral pulmonary emboli from femoral vein DVT 2-Femoral vein DVT 3-Metabolic encephalopathy from pulmonary embolism and possibly aspiration pneumonia Further treatment as outlined below I spent a total of 26 minutes coordinating, documenting, and providing care for this patient excluding time spent by another provider/QHP. Date of Service May 31, 2025 Assessment & Plan (1) Altered mental status: (2) Hypoxia: (3) Diabetes: (4) Hypothyroidism: (5) Depression: Plan This is a 75 y/o female with hx TBI/SAH with subsequent memory issues, DM2, MELITA not on CPAP, spasticity from prior CVA, gait disorder, anxiety, and other history as outlined below who was sent to the ED today from [facility] with increased confusion. Work-up in the ED revealed normal WBCs at 9.54, normal H&H 14.8/43.4, sodium normal at 138, creatinine 1.16, troponin 10.5, procalcitonin 0.10, TSH 2.364. [employer] respiratory panel negative. CT abd/pelvis personally reviewed (report pending) and concerning for possible consolidation at right base. Pt with new oxygen requirement in the ED so referred for admission for further evaluation and management. Suspect that patient had a gastroenteritis earlier this week and aspirated while vomiting. No concerns for chronic aspiration based on history #Confusion #New hypoxia #Possible right lower lobe pneumonia - ?aspiration related to multiple episodes of vomiting - Admit to med telemetry - IV Zosyn started in the ED - will continue for now - Incentive spirometry - wean O2 as tolerated - Aspiration precautions #Type 2 Diabetes - Insulin sliding scale - BSG ACHS - Diabetic diet #Gait disorder #Spasticity related to prior CVA - Fall precautions - PT/OT evaluations - Continue Baclofen PRN #Hypothyroidism - TSH WNL, continue levothyroxine #Hypertension - Chronic, stable - continue outpatient meds #Hyperlipidemia - Chronic, stable - continue statin #Depression/anxiety - Chronic, stable - continue outpatient meds Pt seen and reviewed with collaborating physician, Dr. Kim. Plan of care discussed and as outlined above. Code status: full code, sister/lbckucj-ol-gaq are POAs DVT prophylaxis: SCDs Medication list not available at present - will need to contact facility in the AM to confirm meds. Bar Sorensen PA-C Addendum: CT Abd/Pel shows PE/DVT, pt remains hemodynamically stable. Will order Eliquis Discussed with Dr. Kim. Bar Sorensen PA-C History of Present Illness Chief Complaint: confusion Primary Care Provider: Bogdan Andujar DO This is a 75 y/o female with hx TBI/SAH with subsequent memory issues, DM2, MELITA not on CPAP, spasticity from prior CVA, gait disorder, anxiety, and other history as outlined below who was sent to the ED today from [facility] with increased confusion. History is also obtained from pt's sister at the bedside due to pt's confusion/memory issues and from the medical record. Pt reportedly had episodes of vomiting and diarrhea two days ago. Since then she has complained of malaise, fatigue, weakness. No further vomiting or diarrhea. Does c/o loss of appetite and persistent nausea. Today, the staff at the [facility] thought she seemed more confused than her baseline so sent her to the ED for evaluation. In the ED, she complained of nausea and chest pain, which has since improved. She denies cough, dyspnea, dysphagia. Her family at bedside confirms that she is more confused than usual. Allergies Allergy/AdvReac Type Severity Reaction Status Date / Time adhesive Allergy Mild RASH Verified 07/21/24 10:22 esomeprazole Allergy Mild RASH Verified 07/21/24 10:22 gabapentin Allergy Mild RASH Verified 07/21/24 10:22 hydrochlorothiazide Allergy Mild RASH-MICARD Verified 07/21/24 10:22 IS omeprazole Allergy Mild Rash Verified 07/21/24 10:22 Sulfa (Sulfonamide Allergy Mild RASH Verified 07/21/24 10:22 Antibiotics) telmisartan Allergy Mild RASH-MICARD Verified 07/21/24 10:22 IS thimerosal Allergy Unknown POSITIVE Verified 07/21/24 10:22 ALLERGY TEST codeine AdvReac Mild NAUSEA Verified 07/21/24 10:22 propoxyphene AdvReac Mild NAUSEA Verified 07/21/24 10:22 Home Medications Medication Instructions Recorded Confirmed Type loperamide 2 mg capsule 2 mg PO Q6H PRN loose stool #14 11/05/23 05/31/25 Rx (Anti-Diarrheal (loperamide)) caps valsartan 40 mg tablet 40 mg PO BID #180 tabs 12/14/23 05/31/25 Rx pantoprazole 40 mg tablet,delayed 40 mg PO DAILY #90 tabs 12/23/23 05/31/25 Rx release (Protonix) lorazepam 0.5 mg tablet 0.5 mg PO TID PRN anxiety #90 tabs 02/29/24 05/31/25 Rx nifedipine 60 mg tablet,extended 60 mg PO DAILY 90 days #90 tabs 03/01/24 05/31/25 Rx release venlafaxine 150 mg 150 mg PO UD 06/20/24 05/31/25 History capsule,extended release 24 hr bupropion HCl 300 mg 24 hr tablet, 300 mg PO QAM 07/21/24 05/31/25 History extended release docusate sodium 100 mg capsule 100 mg PO BID PRN Constipation 07/21/24 05/31/25 History venlafaxine 75 mg capsule,extended 75 mg PO UD #90 caps 12/07/24 05/31/25 Rx release 24 hr levothyroxine 112 mcg tablet 112 mcg PO DAILY #90 tabs 01/23/25 05/31/25 Rx rosuvastatin 5 mg tablet (Crestor) 5 mg PO DAILY #90 tabs 01/23/25 05/31/25 Rx baclofen 10 mg tablet 10 mg PO HS PRN Spasms 05/31/25 05/31/25 History donepezil 5 mg tablet 5 mg PO DAILY 05/31/25 05/31/25 History famotidine 20 mg tablet 20 mg PO BID 05/31/25 05/31/25 History mirabegron 25 mg tablet,extended 25 mg PO DAILY 05/31/25 05/31/25 History release 24 hr (Myrbetriq) Past Med/Surg History Problem List (Updated 05/31/25 @ 20:22 by Janneth Sorensen PA-C) Hypoxia Hypertension (Acute) Hyperlipidemia (Acute) Nausea & vomiting (Acute) Acute hyponatremia (Acute) Hyponatremia Other specified peripheral vascular diseases Cellulitis of right toe Contusion of right great toe with damage to nail, initial encounter Weakness (Acute) Acute confusion (Acute) Altered mental status History of traumatic brain injury Ambulatory dysfunction Nocturia Spasticity as late effect of cerebrovascular accident (CVA) Gait disorder Low back pain DVT femoral (deep venous thrombosis) with thrombophlebitis Weakness of left arm Depression Epidural lipomatosis Stenosis, spinal, lumbar History of cervical spinal surgery C5-C6, C6-C7 in 2005; C4-C5 IN 01/2013 Lumbar vertebral fracture Neurogenic bladder Left leg weakness Fracture of fourth lumbar vertebra Vertigo due to brain injury Urinary incontinence Delirium due to known physiological condition Urinary frequency 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 59 minutes Microalbuminuria Anxiety Chest pain Hypothyroidism Osteoarthritis Mood disorder Raynaud disease Colonic adenoma Sleep apnea Diabetes (Chronic) Medical History (Updated 05/31/25 @ 20:22 by Janneth Sorensen PA-C) Edema of left lower leg 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) From a fall-has urgent orthopedic consult ordered Lumbar disc disease with radiculopathy Increased urinary frequency Basal cell carcinoma right med calf Cellulitis Carpal tunnel syndrome Surgical History (Updated 10/14/24 @ 00:07 by Alli Ruffin) S/P blepharoplasty 11/15/13 History of surgical fusion joint History of carpal tunnel repair left 08/2010 History of oral surgery History of tubal ligation Family History Mother Hypothyroidism Dyslipidemia Renal failure Heart failure Skin cancer basal cell Arthritis Father Hypertension Heart disease Dyslipidemia Skin cancer (melanoma) basal cell Melanoma of multiple sites Parkinson disease Sister Multiple sclerosis Brother Polymyositis Arthritis Melanoma of multiple sites Glaucoma Denies family history of Ovarian cancer Breast cancer Social History Smoking Status: Unknown if ever smoked Second Hand Exposure: No; Do You Dip or Chew Tobacco: No; Hx Alcohol Use: No Hx Substance Use: No Preferred Language: Citizen Of [place] Communication Ability: Effective Visual Impairment: Diminished Hearing Ability: Normal Resolution Specialist Required: No Beliefs That Will Affect Care: None marital status: Current Living Situation: Personal Care Facility Current Living Situation Comment: lives with sister and [id number] current occupational status: employed current occupation: [employer] How many Children do You have: 0 Feels Safe at Home: Yes Childhood Exposure to Second-Hand Smoke: No Diet: regular caffeine: Yes (1 cup a day) Dental Care, Regularly: Yes Physical Activity Frequency: Does not Exercise Seatbelt Use: always Sunscreen Use: Yes Assistive Devices: Walker and Wheelchair Review of Systems Review of Systems: All systems reviewed & are unremarkable except as noted in Subjective Physical Exam Physical Exam: General: awake, alert, NAD HEENT: no scleral icterus, moist oral mucosa Neck: supple, trachea midline Heart: RRR Lungs: crackles at the right base, otherwise diminished but clear Abdomen: soft, NT, +BS Extremities: distal pulses intact, no pedal edema Skin: warm, dry, no jaundice Neurologic: oriented to person but not place or time (hospital in [place], 2020) Results & Data Results & Data Vital Signs (Past 12 Hours) Vital Signs Temp Pulse Pulse Resp BP BP Pulse Ox 05/31/25 18:00 85 19 116/63 91 05/31/25 17:41 86 05/31/25 16:07 94 05/31/25 16:00 87 L 05/31/25 16:00 36.8 C 88 21 119/79 87 L O2 Del Method O2 Flow Rate 05/31/25 18:00 Nasal Cannula 2 05/31/25 17:41 05/31/25 16:07 Nasal Cannula 2 05/31/25 16:00 Room Air 0 05/31/25 16:00 Room Air Laboratory Results Lab Results 05/31/25 05/31/25 05/31/25 Range/Units 16:00 16:23 16:25 WBC 9.54 (4.8-10.8) K/ul RBC 4.82 (4.20-5.40) M/uL Hgb 14.8 (12.0-16.0) g/dl POC Hgb 15.3 (12.0-16.0) g/dl Hct 43.4 (37.0-47.0) % POC Hct 45 (37-47) % MCV 90.0 (80.0-100.0) fL MCH 30.7 (25.0-34.0) pg MCHC 34.1 (32.0-36.0) g/dL RDW Std Deviation 42.6 (36.4-46.3) fL RDW Coeff of Manuel 12.9 (11.5-14.5) % Plt Count 264 (130-400) K/uL MPV 8.9 L (9.4-12.4) fL Immature Gran % (Auto) 0.6 % Neut % (Auto) 73.4 % Lymph % (Auto) 14.4 % Jerauld % (Auto) 10.6 % Eos % (Auto) 0.6 % Baso % (Auto) 0.4 % Neut # (Auto) 7.00 H (1.40-6.50) K/uL Lymph # (Auto) 1.37 (1.20-3.40) K/uL Jerauld # (Auto) 1.01 H (0.11-0.59) K/uL Eos # (Auto) 0.06 (0.00-0.50) K/uL Baso # (Auto) 0.04 (0.00-0.20) K/uL Immature Gran # (Auto) 0.06 (0.01-0.20) K/uL POC Sodium 140 (135-144) mmol/L Sodium 138 (136-145) mmol/L POC Potassium 3.5 (3.3-5.0) mmol/L Potassium 3.5 (3.5-5.1) mmol/L POC Chloride 102 (101-112) mmol/L Chloride 102 (98-107) mmol/L Carbon Dioxide 24 (21-32) mmol/L POC Total CO2 26 (24-31) mmol/L Anion Gap 12 H (3-11) POC Anion Gap 17.0 (16-25) mmol/L POC BUN 27 H (7-18) mg/dl BUN 27 H (6-23) mg/dl Creatinine 1.16 (0.6-1.2) mg/dl POC Creatinine 1.3 (0.6-1.3) mg/dl Est Cr Clr Drug Dosing 35.5 ml/min eGFR 48.86 BUN/Creatinine Ratio 23.3 H (10-20) Glucose 114 H (70-99(Fasting)) mg/dl POC Glucose (other) 115 H (70-99) mg/dl Calcium 9.3 (8.6-10.3) mg/dl POC Ioniz Calcium Josias 1.13 (1.12-1.32) mmol/l Phosphorus 3.6 (2.5-4.9) mg/dl Magnesium 1.8 (1.7-2.4) mg/dl Total Bilirubin 0.8 (0.2-1.0) mg/dl AST 15 (13-39) U/L ALT 12 (7-52) U/L Alkaline Phosphatase 59 (34-104) U/L Troponin I High Sens 10.5 (0-14) pg/ml Total Protein 7.4 (6.0-8.3) gm/dl Albumin 3.7 (3.4-5.0) gm/dl Globulin 3.7 (2.5-4.0) gm/dl Albumin/Globulin Ratio 1.0 (0.9-2) Lipase 5 L (11-82) U/L Procalcitonin 0.10 (0-0.5) ng/ml TSH 2.364 (0.300-4.500) uIu/ml Urine Color Urine Appearance (Clear) Urine pH (4.5-7.5) Ur Specific Webster (1.000-1.030) Urine Protein (Negative) Urine Glucose (UA) (Negative) Urine Ketones (Negative) Urine Blood (Negative) Urine Nitrite (Negative) Urine Bilirubin (Negative) Urine Urobilinogen (Negative) Ur Leukocyte Esterase (Negative) Urine WBC (Auto) (0-5) /hpf Urine RBC (Auto) (0-2) /hpf U Hyaline Cast (Auto) (0-2) /lpf U Epithel Cells (Auto) (0-2) /hpf Urine Bacteria (Auto) (None Seen) Hyaline Casts (None Presnt) /lpf Urine Mucus (None Prsent) Urine Comment Adenovirus (PCR) Not Detected (NotDetected) B. pertussis DNA (PCR) Not Detected (NotDetected) B.parapertussis DNA PCR Not Detected (NotDetected) C. pneumoniae DNA (PCR) Not Detected (NotDetected) Coronavirus OC43 (PCR) Not Detected (NotDetected) Coronavirus HKU1 (PCR) Not Detected (NotDetected) Coronavirus 229E (PCR) Not Detected (NotDetected) SARS-CoV-2 (PCR) Not Detected (NotDetected) Coronavirus NL63 (PCR) Not Detected (NotDetected) Human Metapneumovir PCR Not Detected (NotDetected) Influenza Type A (PCR) Not Detected (NotDetected) Influenza Type B (PCR) Not Detected (NotDetected) M. pneumoniae (PCR) Not Detected (NotDetected) Parainfluenza 1 (PCR) Not Detected (NotDetected) Parainfluenza 2 (PCR) Not Detected (NotDetected) Parainfluenza 3 (PCR) Not Detected (NotDetected) Parainfluenza 4 (PCR) Not Detected (NotDetected) RSV (PCR) Not Detected (NotDetected) Entero/Rhino (PCR) Not Detected (NotDetected) 05/31/25 Range/Units 18:55 WBC (4.8-10.8) K/ul RBC (4.20-5.40) M/uL Hgb (12.0-16.0) g/dl POC Hgb (12.0-16.0) g/dl Hct (37.0-47.0) % POC Hct (37-47) % MCV (80.0-100.0) fL MCH (25.0-34.0) pg MCHC (32.0-36.0) g/dL RDW Std Deviation (36.4-46.3) fL RDW Coeff of Manuel (11.5-14.5) % Plt Count (130-400) K/uL MPV (9.4-12.4) fL Immature Gran % (Auto) % Neut % (Auto) % Lymph % (Auto) % Jerauld % (Auto) % Eos % (Auto) % Baso % (Auto) % Neut # (Auto) (1.40-6.50) K/uL Lymph # (Auto) (1.20-3.40) K/uL Jerauld # (Auto) (0.11-0.59) K/uL Eos # (Auto) (0.00-0.50) K/uL Baso # (Auto) (0.00-0.20) K/uL Immature Gran # (Auto) (0.01-0.20) K/uL POC Sodium (135-144) mmol/L Sodium (136-145) mmol/L POC Potassium (3.3-5.0) mmol/L Potassium (3.5-5.1) mmol/L POC Chloride (101-112) mmol/L Chloride (98-107) mmol/L Carbon Dioxide (21-32) mmol/L POC Total CO2 (24-31) mmol/L Anion Gap (3-11) POC Anion Gap (16-25) mmol/L POC BUN (7-18) mg/dl BUN (6-23) mg/dl Creatinine (0.6-1.2) mg/dl POC Creatinine (0.6-1.3) mg/dl Est Cr Clr Drug Dosing ml/min eGFR BUN/Creatinine Ratio (10-20) Glucose (70-99(Fasting)) mg/dl POC Glucose (other) (70-99) mg/dl Calcium (8.6-10.3) mg/dl POC Ioniz Calcium Josias (1.12-1.32) mmol/l Phosphorus (2.5-4.9) mg/dl Magnesium (1.7-2.4) mg/dl Total Bilirubin (0.2-1.0) mg/dl AST (13-39) U/L ALT (7-52) U/L Alkaline Phosphatase (34-104) U/L Troponin I High Sens (0-14) pg/ml Total Protein (6.0-8.3) gm/dl Albumin (3.4-5.0) gm/dl Globulin (2.5-4.0) gm/dl Albumin/Globulin Ratio (0.9-2) Lipase (11-82) U/L Procalcitonin (0-0.5) ng/ml TSH (0.300-4.500) uIu/ml Urine Color Dark Yellow Urine Appearance Clear (Clear) Urine pH 5.5 (4.5-7.5) Ur Specific Webster > 1.045 H (1.000-1.030) Urine Protein Trace H (Negative) Urine Glucose (UA) Negative (Negative) Urine Ketones 1+ H (Negative) Urine Blood Negative (Negative) Urine Nitrite Negative (Negative) Urine Bilirubin Negative (Negative) Urine Urobilinogen Negative (Negative) Ur Leukocyte Esterase Negative (Negative) Urine WBC (Auto) 0-5 (0-5) /hpf Urine RBC (Auto) 0-2 (0-2) /hpf U Hyaline Cast (Auto) >20 H (0-2) /lpf U Epithel Cells (Auto) 11-20 H (0-2) /hpf Urine Bacteria (Auto) None Seen (None Seen) Hyaline Casts Present A (None Presnt) /lpf Urine Mucus Present A (None Prsent) Urine Comment Adenovirus (PCR) (NotDetected) B. pertussis DNA (PCR) (NotDetected) B.parapertussis DNA PCR (NotDetected) C. pneumoniae DNA (PCR) (NotDetected) Coronavirus OC43 (PCR) (NotDetected) Coronavirus HKU1 (PCR) (NotDetected) Coronavirus 229E (PCR) (NotDetected) SARS-CoV-2 (PCR) (NotDetected) Coronavirus NL63 (PCR) (NotDetected) Human Metapneumovir PCR (NotDetected) Influenza Type A (PCR) (NotDetected) Influenza Type B (PCR) (NotDetected) M. pneumoniae (PCR) (NotDetected) Parainfluenza 1 (PCR) (NotDetected) Parainfluenza 2 (PCR) (NotDetected) Parainfluenza 3 (PCR) (NotDetected) Parainfluenza 4 (PCR) (NotDetected) RSV (PCR) (NotDetected) Entero/Rhino (PCR) (NotDetected) Diagnostic Findings Chest X-Ray 05/31/25 16:07 Clinical History: Chest pain Technique: A frontal view of the chest was obtained Findings: There are no confluent pulmonary infiltrates. The heart size is within normal limits. No pleural effusion or pneumothorax is seen. There is mild left lung base atelectasis No fracture is noted. There is a cervical fusion Impression: Mild left lung base atelectasis Electronically signed by Jonathan Read 05-31-2025 5:[address] 05/31/25 16:08 Technique: Axial computed tomography images were obtained of the brain without intravenous contrast. Comparison is made to the prior CT dated 10/03/2024 Findings: There is unchanged cerebral atrophy, within expected limits for the patient's age. Areas of decreased attenuation are seen within the periventricular white matter, likely representing chronic small vessel ischemic disease. There is no definite sign of acute or old infarction. No intracranial hemorrhage is evident. No definite mass lesion is seen on this noncontrast examination. There is no midline shift or other form of herniation. No hydrocephalus is seen. No fracture is identified. The orbits and the visualized paranasal sinuses appear unremarkable. The mastoid air cells appear clear. Impression: 1. Cerebral atrophy and chronic small vessel ischemic disease 2. Otherwise unremarkable noncontrast CT of the brain Electronically signed by Jonathan Read 05-31-2025 6:09 PM Medications Administered Discontinued Medications Sodium Chloride (Nss) 500 mls @ 999 mls/hr IV .Q31M ONE Stop: 05/31/25 16:39 Last Infusion: 05/31/25 17:11 Dose: Infused Documented By: Admin: 05/31/25 16:21 Dose: 999 mls/hr Documented By: LISA Famotidine (Pepcid 20mg Iv Push) 20 mg in 5 mls @ 2.5 mls/min IV NOW STA Stop: 05/31/25 16:10 Last Admin: 05/31/25 16:20 Dose: 2.5 mls/min Documented By: LISA Acetaminophen (Ofirmev) 1,000 mg in 100 mls @ 400 mls/hr IV NOW STA Stop: 05/31/25 16:23 Last Infusion: 05/31/25 16:46 Dose: Infused Documented By: Admin: 05/31/25 16:22 Dose: 400 mls/hr Documented By: LISA Piperacillin Sod/Tazobactam Sod (Zosyn) 4.5 gm in 100 mls @ 200 mls/hr IV NOW ONE; Protocol Stop: 05/31/25 19:13 Last Admin: 05/31/25 19:17 Dose: 200 mls/hr Documented By: LISA Ioversol (Optiray 320 100ml) 93 ml IV ONCE ONE Stop: 05/31/25 17:26 Last Admin: 05/31/25 17:26 Dose: 93 ml Documented By: ZULEIMA Ondansetron HCl (Ondansetron Inj 2 Mg/Ml 2 Ml Vial) 4 mg IV NOW STA Stop: 05/31/25 16:26 Last Admin: 05/31/25 16:29 Dose: 4 mg Documented By: LISA (1) Altered mental status Altered mental status type: unspecified Qualified Code(s): R41.82 - Altered mental status, unspecified (3) Diabetes Diabetes mellitus type: type 2 Diabetes mellitus fdc insulin use: without fdc use Diabetes mellitus complication status: without complication Qualified Code(s): E11.9 - Type 2 diabetes mellitus without complications (4) Hypothyroidism Hypothyroidism type: unspecified Qualified Code(s): E03.9 - Hypothyroidism, unspecified (5) Depression Depression Type: unspecified Qualified Code(s): F32.A - Depression, unspecified
[2025-05-31] MEDS ORDERED: GLUCAGON FOR INJ 1 MG VIAL SQ PRN (22:10)
[2025-05-31] MEDS ORDERED: GLUCOSE 10 TAB/TUBE PO PRN (22:10)
[2025-05-31] MEDS ORDERED: DEXTROSE 50% 50 ML SYRINGE IV PRN (22:10)
[2025-05-31] MEDS ORDERED: GLUCOSE 40% GEL 15 GM TUBE PO PRN (22:10)
[2025-05-31] MEDS ORDERED: DOCUSATE SODIUM 100 MG CAP PO PRN (22:10)
[2025-05-31] MEDS ORDERED: BACLOFEN 10 MG TAB PO PRN (22:10)
[2025-05-31] MEDS ORDERED: CARBOHYDRATES FOR HYPOGLYCEMIA PO PRN (22:10)
[2025-05-31] MEDS: INSULIN ASPART PER UNIT CHARGE SC SCH (23:03)
[2025-05-31] MEDS: VALSARTAN 80 MG TAB PO SCH (23:04)
[2025-05-31] MEDS: VENLAFAXINE HCL XR 150 MG CAPXR PO SCH (23:05)
[2025-05-31] MEDS: VENLAFAXINE HCL XR 75 MG CAPXR PO SCH (23:05)
[2025-05-31] MEDS: APIXABAN 5 MG TABLET PO SCH (23:06)
[2025-05-31] MEDS: NYSTATIN CR 15 GM TUBE EXT SCH (23:06)
[2025-05-31] MEDS: FAMOTIDINE 20 MG TAB PO SCH (23:10)
[2025-05-31] MEDS: PIPERACILLIN/TAZOBACTAM 4.5 GM/100 ML BAG IV SCH (23:14)
[2025-06-01] MEDS: LEVOTHYROXINE SODIUM 112 MCG TABLET PO SCH (05:49)
[2025-06-01 07:25] LABS: Hematocrit (blood only) 37.5 % (37.0-47.0); Hemoglobin 13.0 g/dl (12.0-16.0); Immature Granulocytes # (auto) 0.05 K/uL (0.01-0.20); Immature Granulocytes % (auto) 0.6 %; Mean Corpuscular Hemoglobin 31.4 pg (25.0-34.0); Mean Corpuscular Volume 90.6 fL (80.0-100.0); Platelet Count 223 K/uL (130-400); RDW Standard Deviation 42.7 fL (36.4-46.3); Red Blood Count 4.14 M/uL (4.20-5.40); White Blood Count 8.13 K/ul (4.8-10.8)
[2025-06-01 07:39] LABS: Hemoglobin A1C 6.0 % (4.5-5.6)
[2025-06-01 07:41] LABS: Anion Gap 10.0 (3-11); Calcium 8.7 mg/dl (8.6-10.3); Carbon Dioxide 24.0 mmol/L (21-32); Chloride 105.0 mmol/L (98-107); Potassium 3.1 mmol/L (3.5-5.1); Sodium 139.0 mmol/L (136-145)
[2025-06-01 07:47] LABS: Blood Urea Nitrogen 26.0 mg/dl (6-23); Creatinine Clr Calc Pharmacy 42.4 ml/min; Glucose 108.0 mg/dl (70-99(Fasting))
[2025-06-01] MEDS: VIBEGRON 75 MG TAB PO SCH (08:22)
[2025-06-01] MEDS: DONEPEZIL HCL 5 MG TAB PO SCH (08:22)
[2025-06-01] MEDS: NIFEdipine EXTENDED REL 30 MG TABCR PO SCH (08:22)
[2025-06-01] MEDS: ROSUVASTATIN CALCIUM 5 MG TAB PO SCH (08:22)
[2025-06-01] MEDS: POTASSIUM CHLORIDE CRTAB 20 MEQ TABCR PO STA (08:30)
[2025-06-01] MEDS: OPTIRAY 320 125ml IV ONE (09:50)
--- NOTE | 2025-06-01 11:16 | Hospitalist Progress Note ---
Date of Service June 01, 2025 Assessment & Plan (1) Altered mental status: (2) Hypoxia: (3) Diabetes: (4) Hypothyroidism: (5) Depression: Plan 75 y/o female with hx TBI/SAH with subsequent memory issues, DM2, MELITA not on CPAP, spasticity from prior CVA, gait disorder, anxiety, and other history as outlined below who was sent to the ED 05/31 from [facility] with increased confusion. Pt with new oxygen requirement in the ED so referred for admission for further evaluation and management. Suspect that patient had a gastroenteritis earlier this week and aspirated while vomiting. No concerns for chronic aspiration based on history. #Confusion/acute metabolic encephalopathy #New hypoxia #Possible right lower lobe pneumonia - ?aspiration related to multiple episodes of vomiting - Admitted to med telemetry - c/w Zosyn 05/31 - Incentive spirometry - wean O2 as tolerated - Aspiration precautions; N, V are improving. - Speech eval. - Back on room air, confusion improving. Ox2. (baseline, on/off confused) #Pulmonary embolism: Noted on CTAP, will get CTA chest, started on eliquis, continue. Pt denies chest pain or sob, trop neg. f/u CTA chest/if w/ right heart strain, get echo. #Type 2 Diabetes - Insulin sliding scale - BSG ACHS - Diabetic diet #Gait disorder #Spasticity related to prior CVA - Fall precautions - PT/OT evaluations - Continue Baclofen PRN #Hypothyroidism - TSH WNL, continue levothyroxine #Hypertension - Chronic, stable - continue outpatient meds #Hyperlipidemia - Chronic, stable - continue statin #Depression/anxiety - Chronic, stable - continue outpatient meds Code status: full code, sister/[id number] are POAs, updated Alexia over the phone, spoke about risks of blood thinner/need of it given blood clot. She voiced understanding. 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 DVT prophylaxis: on eliquis Admission and Anticipated Discharge Date Admission Date: May 31, 2025 Subjective Patient was seen and examined at bedside. Patient was lying in bed, on room air, NAD, resting comfortably. Pt denies chest pain, sob, cough, sore throat. Pt reports improving nausea and vomiting and able to tolerate some diet. Patient per RN, patient gradually picking up on diet. Physical Exam Physical Exam: General: awake, alert, NAD HEENT: no scleral icterus, moist oral mucosa Neck: supple, trachea midline Heart: RRR Lungs: crackles at the right base, otherwise diminished but clear Abdomen: soft, NT, +BS Extremities: distal pulses intact, no pedal edema Skin: warm, dry, no jaundice Neurologic: oriented to person and place (not time) Results & Data Results & Data Vital Signs (Past 12 Hours) Vital Signs Temp Pulse Pulse Pulse Resp BP BP 06/01/25 07:52 36.3 C L 83 114/66 06/01/25 07:36 77 06/01/25 03:58 36.7 C 84 20 110/66 Pulse Ox O2 Del Method 06/01/25 07:52 90 Room Air 06/01/25 07:36 06/01/25 03:58 94 Room Air (1) Altered mental status Altered mental status type: unspecified Qualified Code(s): R41.82 - Altered mental status, unspecified (3) Diabetes Diabetes mellitus type: type 2 Diabetes mellitus retirement insulin 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
--- NOTE | 2025-06-01 11:38 | CT Scan Report ---
CT angio chest PE protocol CT DOSE: 781.11 mGy.cm HISTORY: 75 years-old Female with PE. Acute shortness of breath with chest pain TECHNIQUE: Multiple CTA images of the chest were obtained after the intravenous administration of 112 ml Optiray. Coronal and sagittal MIPS were obtained from the axial data set and were submitted for review. All measurements were obtained according to NASCET criteria. A dose lowering technique was u tilized adhering to the principles of ALARA. COMPARISON: CT abdomen and pelvis 05/31/2025, chest CT 05/18/2024 FINDINGS: No dominant thyroid nodule or lymphadenopathy. Cardiomegaly with extensive coronary artery calcificat ions. No pericardial effusion or thoracic aortic aneurysm. There is a large volume of pulmonary embol i which involve the main, lobar, segmental and subsegmental branches. No saddle pulmonary embolus is seen. Mild straightening of the intraventricular septum. Trace right pleural effusion. Mild dependent subsegmental bibasilar atelectasis. Areas of atelectasis with air trapping noted bilaterally. No lar ge pulmonary infarct is seen. A few scattered stable and likely benign subpleural nodules measuring u p to 4 mm in left midlung. Minimal subsegmental bibasilar atelectasis. The central airways appear pat ent. Small hiatal hernia with mild distal esophageal wall thickening. Hepatic steatosis. Mild colonic feca l retention. Unremarkable soft tissues. No acute fracture. Cervical spinal fusion hardware. 25% ante rosuperior endplate compression deformity at T12 without retropulsion is unchanged. IMPRESSION: 1. Extensive pulmonary emboli with findings suspicious for right heart strain. 2. Trace right pleural effusion with right basilar atelectasis. 3. Small hiatal hernia. ACT 112: Negative or not required by law. The above report was generated using voice recognition software. It may contain grammatical, syntax o r spelling errors. Electronically signed by: jM Hernandez M.D. 06/01/2025 11:35 AM
--- NOTE | 2025-06-01 15:53 | Electrocardiogram Report ---
Test Reason : Blood Pressure : */* mmHG Vent. Rate : 90 BPM Atrial Rate : 90 BPM P-R Int : 148 ms QRS Dur : 122 ms QT Int : 384 ms P-R-T Axes : 25 -16 101 degrees QTcB Int : 469 ms Normal sinus rhythm Left bundle branch block Abnormal ECG When compared with ECG of 03-Oct-2024 16:26, Left bundle branch block is now Present Criteria for Anteroseptal infarct are no longer Present Confirmed by Earl Bejarano ([id number]) on 06/01/2025 3:52:56 PM Referred By: REFERRED SELF Confirmed By: Earl Bejarano
--- NOTE | 2025-06-01 16:34 | XCELERA ---
[id number]
[2025-06-01] MEDS: ACETAMINOPHEN 325 MG TAB PO PRN (23:44)
[2025-06-02 06:21] LABS: Hematocrit (blood only) 37.3 % (37.0-47.0); Hemoglobin 12.4 g/dl (12.0-16.0); Mean Corpuscular Hemoglobin 30.1 pg (25.0-34.0); Mean Corpuscular Volume 90.5 fL (80.0-100.0); Platelet Count 238 K/uL (130-400); RDW Standard Deviation 42.4 fL (36.4-46.3); Red Blood Count 4.12 M/uL (4.20-5.40); White Blood Count 7.12 K/ul (4.8-10.8)
[2025-06-02 06:42] LABS: Anion Gap 10.0 (3-11); Blood Urea Nitrogen 23.0 mg/dl (6-23); Calcium 8.7 mg/dl (8.6-10.3); Carbon Dioxide 23.0 mmol/L (21-32); Chloride 105.0 mmol/L (98-107); Creatinine Clr Calc Pharmacy 45.2 ml/min; Glucose 98.0 mg/dl (70-99(Fasting)); Magnesium 1.8 mg/dl (1.7-2.4); Potassium 3.3 mmol/L (3.5-5.1); Sodium 138.0 mmol/L (136-145)
[2025-06-02] MEDS: POTASSIUM CHLORIDE CRTAB 20 MEQ TABCR PO STA (09:14)
[2025-06-02 11:19] VITALS: TEMP 97.7
[2025-06-02] MEDS ORDERED: PHA DELIRIUM CONSULT PRN (14:25)
[2025-06-02 15:19] VITALS: BP 125/69; PULSE 84; RESP 18; O2SAT 94
--- NOTE | 2025-06-02 16:38 | Discharge Summary ---
Discharge Summary Date of Service June 02, 2025 Principal Dx & Hospital Course #1 = Principal Diagnosis (1) Altered mental status: (2) Hypoxia: (3) Diabetes: (4) Hypothyroidism: (5) Depression: Plan 75 y/o female with hx TBI/SAH with subsequent memory issues, DM2, MELITA not on CPAP, spasticity from prior CVA, gait disorder, anxiety, and other history as outlined below who was sent to the ED 05/31 from [facility] with increased confusion. Pt with new oxygen requirement in the ED so referred for admission for further evaluation and management. Suspect that patient had a gastroenteritis earlier this week and aspirated while vomiting. No concerns for chronic aspiration based on history. #Confusion/acute metabolic encephalopathy #New hypoxia #Possible right lower lobe pneumonia - ?aspiration related to multiple episodes of vomiting - Admitted to med telemetry - c/w Zosyn 05/31 - Incentive spirometry - wean O2 as tolerated - Aspiration precautions; N, V are improving. - Speech eval. - Back on room air, confusion improving. Ox2. (baseline, on/off confused) #Pulmonary embolism: Noted on CTAP, will get CTA chest, started on eliquis, continue. Pt denies chest pain or sob, trop neg. f/u CTA chest/if w/ right heart strain, get echo. #Type 2 Diabetes - Insulin sliding scale - BSG ACHS - Diabetic diet #Gait disorder #Spasticity related to prior CVA - Fall precautions - PT/OT evaluations - Continue Baclofen PRN #Hypothyroidism - TSH WNL, continue levothyroxine #Hypertension - Chronic, stable - continue outpatient meds #Hyperlipidemia - Chronic, stable - continue statin #Depression/anxiety - Chronic, stable - continue outpatient meds Notes For Next Care Provider 75 y/o female with hx TBI/SAH with subsequent memory issues, DM2, MELITA not on CPAP, spasticity from prior CVA, gait disorder, anxiety, and other history as outlined below who was sent to the ED today from [facility] with increased confusion. Found to have bilateral PE, admitted to medicine. On medicine oxygen titrated off. 2 step performed, patient does not require oxygen. PT/OT consulted, state patient is at baseline. Cognitively improved, likely element of hypoactive delirium that will resolve with time as PE improves. On 06/02/2025 patient medically stable for discharge. To do: -Incidental Findings: proctitis, diverticulitis, hiatal hernia, small pleural ef fusion [ ] ongoing blood thinner discussions Medication Changes From Visit -eliquis Admission HPI Per Admitting Provider This is a 75 y/o female with hx TBI/SAH with subsequent memory issues, DM2, MELITA not on CPAP, spasticity from prior CVA, gait disorder, anxiety, and other history as outlined below who was sent to the ED today from [facility] with increased confusion. History is also obtained from pt's sister at the bedside due to pt's confusion/memory issues and from the medical record. Pt reportedly had episodes of vomiting and diarrhea two days ago. Since then she has complained of malaise, fatigue, weakness. No further vomiting or diarrhea. Does c/o loss of appetite and persistent nausea. Today, the staff at the [facility] thought she seemed more confused than her baseline so sent her to the ED for evaluation. In the ED, she complained of nausea and chest pain, which has since improved. She denies cough, dyspnea, dysphagia. Her family at bedside confirms that she is more confused than usual. Discharge Exam Gen: A&O 3 NAD, sarcopenia noted HEENT: NCAT, EOMI, not icteric. External ears normal. No rhinorrhea. Moist mucous membranes. Neck: Supple, full range of motion, no observable masses, No meningeal sign. Lungs: No Respiratory distress. CV: RRR, no edema. Abdomen: Soft, nondistended, No rebound tenderness. MSK: No joint swelling, no redness. Skin: No rashes, petechiae, lesions. Normal color per patient. Neuro: Normal Gait, Grossly intact. No focal deficits noted Psych: only marginally confused, alert and orriented x3 Updated Medication List Medication Instructions Recorded Confirmed Type loperamide 2 mg capsule 2 mg PO Q6H PRN loose stool #14 11/05/23 05/31/25 Rx (Anti-Diarrheal (loperamide)) caps valsartan 40 mg tablet 40 mg PO BID #180 tabs 12/14/23 05/31/25 Rx pantoprazole 40 mg tablet,delayed 40 mg PO DAILY #90 tabs 12/23/23 05/31/25 Rx release (Protonix) lorazepam 0.5 mg tablet 0.5 mg PO TID PRN anxiety #90 tabs 02/29/24 05/31/25 Rx nifedipine 60 mg tablet,extended 60 mg PO DAILY 90 days #90 tabs 03/01/24 05/31/25 Rx release venlafaxine 150 mg 150 mg PO UD 06/20/24 05/31/25 History capsule,extended release 24 hr bupropion HCl 300 mg 24 hr tablet, 300 mg PO QAM 07/21/24 05/31/25 History extended release docusate sodium 100 mg capsule 100 mg PO BID PRN Constipation 07/21/24 05/31/25 History venlafaxine 75 mg capsule,extended 75 mg PO UD #90 caps 12/07/24 05/31/25 Rx release 24 hr levothyroxine 112 mcg tablet 112 mcg PO DAILY #90 tabs 01/23/25 05/31/25 Rx rosuvastatin 5 mg tablet (Crestor) 5 mg PO DAILY #90 tabs 01/23/25 05/31/25 Rx baclofen 10 mg tablet 10 mg PO HS PRN Spasms 05/31/25 05/31/25 History donepezil 5 mg tablet 5 mg PO DAILY 05/31/25 05/31/25 History famotidine 20 mg tablet 20 mg PO BID 05/31/25 05/31/25 History mirabegron 25 mg tablet,extended 25 mg PO DAILY 05/31/25 05/31/25 History release 24 hr (Myrbetriq) apixaban 5 mg (74 tabs) tablets in 5 mg PO BID #74 ea 06/02/25 Rx a dose pack (Eliquis) Hospital Stay Data Consultations 05/31/25 18:43 ED Decision to Admit Stat Diagnostic Imagining Performed 05/31/25 16:08 CT abd pelvis IV con only Stat CT head/brain wo con Stat 06/01/25 08:22 CT angio chest PE protocol Routine Pending Results Patient Have Any Pending Studies at Discharge: No Discharge Instructions Given to Patient (Per Discharging Provider) Diagnosis: pulmonary embolism, DVT, aspiration pneumonitis Follow Ups: PCP Incidental Findings: proctitis, diverticulitis, hiatal hernia, small pleural effusion 1. Please follow up with PCP. 2. Please stay hydrated! 3. Please take medications as prescribed. Total Time Total Time Spent Total Time Spent (In Minutes): I spent a total of 35 minutes in direct patient care, including [id number] time with the patient and/or family, reviewing medical records, ordering and reviewing diagnostic tests, and coordinating care with other healthcare providers. This time includes: history taking, physical examination, medical decision making, counseling, ECG interpretation, imaging interpretation, lab interpretation, orders, and education, excluding time spent in the performance of separately billed services.
[2025-06-02] MEDS ORDERED: SODIUM CHLORIDE 0.65% NA SOLN 45 ML (OCEAN) SCH (21:00)
== END 2025-06-02 16:10 | disposition home or self-care (01) | DRG 175 ==
LOC: ED 15:50 → 2W 19:32 → SUATTDRO 19:32 → 2W 21:50

== ENCOUNTER 2025-06-13 20:13 | Observation (INO) ==
--- NOTE | 2025-06-13 20:29 | Emergency Department Note ---
Impression & Plan Chest pain, Blood glucose elevated ED Provider Note NAME: FLORES GALLAGHER AGE: 75 SEX: F : 1950 ARRIVES VIA: Ambulance INFORMANT: Patient ED PROVIDER(S): Waldo James DO CHIEF COMPLAINT: Chest pain HPI: Patient is a 75-year-old female with a past medical history of hyponatremia, pulmonary embolism on Eliquis, confusion, CVA who presents to the ER for chest pain which started prior to arrival. Pain was Midsternal. She notes that the pain has resolved now. She was given Denies any headache or change in vision. No shortness of breath. No belly pain. No nausea, vomiting, or diarrhea. No dysuria, urgency, or frequency. No other exacerbating or remitting factors. ADDITIONAL HISTORY OBTAINED: Per HPI Chronic Medical/Social Conditions Affecting Care: Per HPI PAST MEDICAL HISTORY:See Below PAST SURGICAL HISTORY:See Below FAMILY HISTORY:See Below SOCIAL HISTORY:See Below HOME MEDICATIONS:See Below ALLERGIES:See Below VITALS:See Below PHYSICAL EXAMINATION: GENERAL: Sitting up in bed, alert, well appearing, well nourished, no distress, non-toxic EYE EXAM: normal conjunctiva. OROPHARYNX: no exudate, no erythema, lips, buccal mucosa, and tongue normal and mucous membranes are moist NECK: supple, no nuchal rigidity, no adenopathy, non-tender LUNGS: Clear to auscultation. Normal chest wall mechanics HEART: no murmurs, S1 normal and S2 normal ABDOMEN: abdomen soft, non-tender, normo-active bowel sounds, no masses, no rebound or guarding. BACK: Back is symmetrical on inspection and there is no deformity, no midline tenderness, no CVA tenderness. SKIN: no rashes and no bruising UPPER EXTREMITIES: upper extremities are grossly normal. LOWER EXTREMITIES: No pitting edema. NEURO EXAM: Normal sensorium, cranial nerves II-XII grossly intact, normal speech. MEDICAL DECISION MAKING: Patient is a 35-year-old female who presents to the ER with above-stated complaint. Labs show no significant leukocytosis or anemia. BMP along with LFTs bilirubin and troponin was negative. Lipase normal. EKG was nondiagnostic. He was given aspirin prior to arrival. Chest x-ray is unremarkable. Patient was updated bedside and discussed with the hospitalist for further evaluation management treatment. Discussed with Pt concerning signs and symptoms to watch out for. Pt was instructed to follow up with their PCP and discussed with the patient their option to return to the ED at anytime for persistent or worsening symptoms. The appropriate anticipatory guidance and out- patient management, including indications for return to the emergency department, were explained at length to the patient and understood. Consults/Care Managements Discussions: Per [facility] Triage Nursing notes reviewed. Limited review of prior medical records performed Vital Signs: reviewed and remarkable for no significant abnormalities Differential diagnosis: Cardiac ischemia, aortic dissection, pulmonary embolism, pneumothorax, pneumonia, pericarditis, myocarditis, esophageal rupture, GERD, cholecystitis, pancreatitis, musculoskeletal, as well as other pathologies. ER treatment provided: See below Diagnostics interpreted by me include EKG and cardiac monitoring as listed below: -Cardiac Monitoring: An order was placed for continuous cardiac monitoring. The monitor shows a rate of 88 with sinus rhythm. -ECG: Sinus rhythm rate 85 Normal axis No PVCs Septal Q waves QTc 478 -Laboratory studies:Interpreted by me as stated above in MDM and shown below. Imaging studies: Xrays: As interpreted by me: Portable AP upright 1 view of the chest shows no focal infiltrate CTs show: none Procedures:none Critical Care: None Past Med/Surg History Problem List (Updated 06/14/25 @ 00:20 by Waldo James DO) Blood glucose elevated (Acute) Chest pain (Acute) Confusion (Acute) Generalized weakness (Acute) Hypoxia (Acute) DVT (deep venous thrombosis) (Acute) Pulmonary embolism (Acute) Hypoxia Hypertension (Acute) Hyperlipidemia (Acute) Nausea & vomiting (Acute) Acute hyponatremia (Acute) Hyponatremia Other specified peripheral vascular diseases Cellulitis of right toe Contusion of right great toe with damage to nail, initial encounter Weakness (Acute) Acute confusion (Acute) Altered mental status History of traumatic brain injury Ambulatory dysfunction Nocturia Spasticity as late effect of cerebrovascular accident (CVA) Gait disorder Low back pain DVT femoral (deep venous thrombosis) with thrombophlebitis Weakness of left arm Depression Epidural lipomatosis Stenosis, spinal, lumbar History of cervical spinal surgery C5-C6, C6-C7 in 2005; C4-C5 IN 01/2013 Lumbar vertebral fracture Neurogenic bladder Left leg weakness Fracture of fourth lumbar vertebra Vertigo due to brain injury Urinary incontinence Delirium due to known physiological condition Urinary frequency 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 59 minutes Microalbuminuria Anxiety Hypothyroidism Osteoarthritis Mood disorder Raynaud disease Colonic adenoma Sleep apnea Diabetes (Chronic) Medical History (Updated 06/14/25 @ 00:20 by Waldo James DO) Edema of left lower leg 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) From a fall-has urgent orthopedic consult ordered Lumbar disc disease with radiculopathy Increased urinary frequency Basal cell carcinoma right med calf Cellulitis Carpal tunnel syndrome Surgical History S/P blepharoplasty 11/15/13 History of surgical fusion joint History of carpal tunnel repair left 08/2010 History of oral surgery History of tubal ligation Family History Mother Hypothyroidism Dyslipidemia Renal failure Heart failure Skin cancer basal cell Arthritis Father Hypertension Heart disease Dyslipidemia Skin cancer (melanoma) basal cell Melanoma of multiple sites Parkinson disease Sister Multiple sclerosis Brother Polymyositis Arthritis Melanoma of multiple sites Glaucoma Denies family history of Ovarian cancer Breast cancer Social History Smoking Status: Never smoker Second Hand Exposure: No; Do You Dip or Chew Tobacco: No; Hx Alcohol Use: No Hx Substance Use: No Preferred Language: Thai Communication Ability: Effective Visual Impairment: Diminished Hearing Ability: Normal Inspector Precision Required: No Beliefs That Will Affect Care: None marital status: Current Living Situation: [facility] Current Living Situation Comment: lives with sister and [id number] current occupational status: employed current occupation: [employer] How many Children do You have: 0 Feels Safe at Home: Yes Childhood Exposure to Second-Hand Smoke: No Diet: regular caffeine: Yes (1 cup a day) Dental Care, Regularly: Yes Physical Activity Frequency: Does not Exercise Seatbelt Use: always Sunscreen Use: Yes Assistive Devices: Walker Allergies Allergies Allergy/AdvReac Type Severity Reaction Status Date / Time telmisartan Allergy Intermediate RASH-MICARD Verified 06/13/25 21:33 IS adhesive Allergy Mild RASH Verified 06/13/25 21:33 esomeprazole Allergy Mild RASH Verified 06/13/25 21:33 gabapentin Allergy Mild RASH Verified 06/13/25 21:33 hydrochlorothiazide Allergy Mild RASH-MICARD Verified 06/13/25 21:33 IS omeprazole Allergy Mild Rash Verified 06/13/25 21:33 Sulfa (Sulfonamide Allergy Mild RASH Verified 06/13/25 21:33 Antibiotics) thimerosal Allergy Unknown POSITIVE Verified 06/13/25 21:33 ALLERGY TEST promethazine [From Phenergan] AdvReac Intermediate abnormal Verified 06/13/25 21:33 movements codeine AdvReac Mild NAUSEA Verified 06/13/25 21:33 propoxyphene AdvReac Mild NAUSEA Verified 06/13/25 21:33 Home Meds Home Medications Medication Instructions Recorded Confirmed bupropion HCl 300 mg 24 hr tablet, 300 mg PO QAM 07/21/24 06/13/25 extended release docusate sodium 100 mg capsule 100 mg PO BID 07/21/24 06/13/25 baclofen 10 mg tablet 5 mg PO HS 05/31/25 06/13/25 donepezil 5 mg tablet 5 mg PO DAILY 05/31/25 06/13/25 famotidine 20 mg tablet 20 mg PO BID 05/31/25 06/13/25 mirabegron 25 mg tablet,extended 25 mg PO DAILY 05/31/25 06/13/25 release 24 hr (Myrbetriq) apixaban 5 mg (74 tabs) tablets in 5 mg PO QAM 06/13/25 06/13/25 a dose pack (Eliquis) pantoprazole 40 mg tablet,delayed 40 mg PO DAILYBB 06/13/25 06/13/25 release (Protonix) pioglitazone 15 mg tablet 15 mg PO DAILY 06/13/25 06/13/25 venlafaxine 100 mg tablet 300 mg PO DAILY 06/13/25 06/13/25 Previous Rx's Medication Instructions Recorded valsartan 40 mg tablet 40 mg PO BID #180 tabs 12/14/23 nifedipine 60 mg tablet,extended 60 mg PO DAILY 90 days #90 tabs 03/01/24 release levothyroxine 112 mcg tablet 112 mcg PO DAILY #90 tabs 01/23/25 rosuvastatin 5 mg tablet (Crestor) 5 mg PO DAILY #90 tabs 01/23/25 Results & Data (ED) Vital Signs Vital Signs - 24 hr 06/13/25 20:33 06/13/25 20:45 06/13/25 20:45 Pulse Rate 86 84 Respiratory Rate 20 Blood Pressure 118/70 Blood Pressure Mean 86 Pulse Oximetry 91 93 Oxygen Delivery Method Room Air Room Air Sepsis Recent Fever Within 48 Hours No Sepsis New/Unexplained Change in Mental Status No Sepsis Action Taken by Nursing No Action Required 06/13/25 20:45 Pulse Rate Respiratory Rate Blood Pressure Blood Pressure Mean Pulse Oximetry 93 Oxygen Delivery Method Room Air Sepsis Recent Fever Within 48 Hours Sepsis New/Unexplained Change in Mental Status Sepsis Action Taken by Nursing Laboratory Data 06/13/25 21:00 06/13/25 21:00 Lab Results 06/13/25 Range/Units 21:00 WBC 9.17 (4.8-10.8) K/ul RBC 4.95 (4.20-5.40) M/uL Hgb 15.5 (12.0-16.0) g/dL Hct 45.0 (37.0-47.0) % MCV 90.9 (80.0-100.0) fL MCH 31.3 (25.0-34.0) pg MCHC 34.4 (32.0-36.0) g/dL RDW Std Deviation 43.7 (36.4-46.3) fL RDW Coeff of Manuel 13.1 (11.5-14.5) % Plt Count 389 (130-400) K/uL MPV 9.3 L (9.4-12.4) fL Immature Gran % (Auto) 1.1 % Neut % (Auto) 80.6 % Lymph % (Auto) 9.5 % Sutter % (Auto) 7.5 % Eos % (Auto) 0.9 % Baso % (Auto) 0.4 % Neut # (Auto) 7.39 H (1.40-6.50) K/uL Lymph # (Auto) 0.87 L (1.20-3.40) K/uL Sutter # (Auto) 0.69 H (0.11-0.59) K/uL Eos # (Auto) 0.08 (0.00-0.50) K/uL Baso # (Auto) 0.04 (0.00-0.20) K/uL Immature Gran # (Auto) 0.10 (0.01-0.20) K/uL Sodium 136 (136-145) mmol/L Potassium 3.9 (3.5-5.1) mmol/L Chloride 102 (98-107) mmol/L Carbon Dioxide 23 (21-32) mmol/L Anion Gap 11 (3-11) BUN 18 (6-23) mg/dl Creatinine 1.03 (0.6-1.2) mg/dl Est Cr Clr Drug Dosing 40.4 ml/min eGFR 56.35 BUN/Creatinine Ratio 17.5 (10-20) Glucose 107 H (70-99(Fasting)) mg/dl Calcium 9.3 (8.6-10.3) mg/dl Total Bilirubin 0.5 (0.2-1.0) mg/dl AST 19 (13-39) U/L ALT 14 (7-52) U/L Alkaline Phosphatase 60 (34-104) U/L Troponin I High Sens 5.7 (0-14) pg/ml Total Protein 7.2 (6.0-8.3) gm/dl Albumin 3.8 (3.4-5.0) gm/dl Globulin 3.4 (2.5-4.0) gm/dl Albumin/Globulin Ratio 1.1 (0.9-2) Lipase 12 (11-82) U/L Imaging Data Radiologist's Impression: Chest X-Ray 06/13/25 20:15 Exam(s): XR CXR 1 VIEW EXAM: XR Chest, 1 View CLINICAL HISTORY: Reason for exam: Chest pain, nonspecific. TECHNIQUE: Frontal view of the chest. COMPARISON: No relevant prior studies available. FINDINGS: Eventration of the right hemidiaphragm. Lungs: Mild to moderate peribronchial thickening of the central bronchi. No consolidation. Pleural space: Unremarkable. No pneumothorax. Heart: Unremarkable. No cardiomegaly. Mediastinum: Unremarkable. Normal mediastinal contour. Bones/joints: Anterior fusion of the distal cervical spine. No acute fracture. IMPRESSION: Bronchitis, which may be of infectious or inflammatory etiologies. No consolidation or pleural effusion. Electronically signed by: Lizzette Mistry MD 06/13/25 21:24 PM Discharge Plan Visit Data Chief Complaint: Cardiac Assessment Stated Complaint: CHEST PRESSURE, BETTER NOW ED Provider: Waldo James Discharge Problem: Chest pain, Blood glucose elevated Patient Disposition: Admitted As Inpatient Condition: Fair Discharge Problem: Chest pain Qualifiers: Chest pain type: unspecified Qualified Code(s): R07.9 - Chest pain, unspecified
[2025-06-13 21:13] LABS: Hematocrit (blood only) 45.0 % (37.0-47.0); Hemoglobin 15.5 g/dL (12.0-16.0); Immature Granulocytes # (auto) 0.10 K/uL (0.01-0.20); Immature Granulocytes % (auto) 1.1 %; Mean Corpuscular Hemoglobin 31.3 pg (25.0-34.0); Mean Corpuscular Volume 90.9 fL (80.0-100.0); Platelet Count 389 K/uL (130-400); RDW Standard Deviation 43.7 fL (36.4-46.3); Red Blood Count 4.95 M/uL (4.20-5.40); White Blood Count 9.17 K/ul (4.8-10.8)
--- NOTE | 2025-06-13 21:24 | XRay Report ---
Exam(s): XR CXR 1 VIEW EXAM: XR Chest, 1 View CLINICAL HISTORY: Reason for exam: Chest pain, nonspecific. TECHNIQUE: Frontal view of the chest. COMPARISON: No relevant prior studies available. FINDINGS: Eventration of the right hemidiaphragm. Lungs: Mild to moderate peribronchial thickening of the central bronchi. No consolidation. Pleural space: Unremarkable. No pneumothorax. Heart: Unremarkable. No cardiomegaly. Mediastinum: Unremarkable. Normal mediastinal contour. Bones/joints: Anterior fusion of the distal cervical spine. No acute fracture. IMPRESSION: Bronchitis, which may be of infectious or inflammatory etiologies. No consolidation or pleural effusion. Electronically signed by: Lizzette Mistry MD 06/13/25 21:24 PM
[2025-06-13 21:32] LABS: Alanine Aminotransferase 14.0 U/L (7-52); Albumin Globulin Ratio 1.1 (0.9-2); Albumin Level 3.8 gm/dl (3.4-5.0); Alkaline Phosphatase 60.0 U/L (34-104); Anion Gap 11.0 (3-11); Bilirubin,Total 0.5 mg/dl (0.2-1.0); Blood Urea Nitrogen 18.0 mg/dl (6-23); Calcium 9.3 mg/dl (8.6-10.3); Carbon Dioxide 23.0 mmol/L (21-32); Chloride 102.0 mmol/L (98-107); Creatinine Clr Calc Pharmacy 40.4 ml/min; Globulin 3.4 gm/dl (2.5-4.0); Glucose 107.0 mg/dl (70-99(Fasting)); Lipase 12.0 U/L (11-82); Potassium 3.9 mmol/L (3.5-5.1); Sodium 136.0 mmol/L (136-145); Total Protein 7.2 gm/dl (6.0-8.3)
--- NOTE | 2025-06-13 22:56 | History & Physical Report ---
Date of Service June 13, 2025 Assessment & Plan (1) Chest pain: Plan: Sent in from [facility] with chest pain. Still complains some pain in the emergency room with some tightness in the lower chest Initial EKG and troponin was unremarkable He will be admitted to medical telemetry unit and serial cardiac enzymes and EKG will be done tomorrow Echo will be done as well Doubt any ACS Chest x-ray suggest bronchitis , no significant symptoms and/or examination findingsantibiotic was not prescribed (2) History of traumatic brain injury: Plan: Significant history of traumatic brain injury and subarachnoid hemorrhages with subsequent memory impairment/Dementia Has spastic paraparesis secondary She cannot bend her knees or her hips which are spastic (3) Spasticity as late effect of cerebrovascular accident (CVA): Plan: Has weakness in the left upper extremity more than other limbs Flexural deformities of the ankle Continue baclofen (4) Pulmonary embolism: Plan: History of DVT and pulmonary embolism Has been on Eliquis (5) Neurogenic bladder: Plan: Denies any acute issues (6) Anxiety: (7) Hypothyroidism: Plan: Continue replacement therapy (8) Sleep apnea: Plan: Does not use any CPAP and/or BiPAP (9) Diabetes: Plan: Has been on pioglitazone Will put her on sliding scale insulin coverage while in the hospital DVT prophylaxis On Eliquis CODE STATUS Full History of Present Illness Chief Complaint: Chest pain since this evening Primary Care Provider: Bogdan Andujar, DO Limited history from the patient. Tried to call with sonny landa and the sister without reply. Efforts should be made tomorrow. She is a 75 years old female with significant past medical history of traumatic brain injury/NORMAN's with subsequent memory impairment and spasticity from CVA, type 2 diabetes, MELITA not on any CPAP, gait disorder, anxiety, dementia and hypothyroidism apparently was sent in from [facility] with chest pain. The patient has noted to be seen this evening associated with some lower chest tightness and shortness of breath as per the patient. She complains of some nausea but no vomiting and denies any abdominal pain. Denies any fever and or chills, any palpitation associated with it. She was asymptomatic in the emergency room and apparent initial investigations including EKG and troponins are unremarkable. Given complex past medical history and dementia she was admitted to medical telemetry unit for continuation of care and rule out possibility of ACS. Allergies Allergy/AdvReac Type Severity Reaction Status Date / Time telmisartan Allergy Intermediate RASH-MICARD Verified 06/13/25 21:33 IS adhesive Allergy Mild RASH Verified 06/13/25 21:33 esomeprazole Allergy Mild RASH Verified 06/13/25 21:33 gabapentin Allergy Mild RASH Verified 06/13/25 21:33 hydrochlorothiazide Allergy Mild RASH-MICARD Verified 06/13/25 21:33 IS omeprazole Allergy Mild Rash Verified 06/13/25 21:33 Sulfa (Sulfonamide Allergy Mild RASH Verified 06/13/25 21:33 Antibiotics) thimerosal Allergy Unknown POSITIVE Verified 06/13/25 21:33 ALLERGY TEST promethazine [From Phenergan] AdvReac Intermediate abnormal Verified 06/13/25 21:33 movements codeine AdvReac Mild NAUSEA Verified 06/13/25 21:33 propoxyphene AdvReac Mild NAUSEA Verified 06/13/25 21:33 Home Medications Medication Instructions Recorded Confirmed Type valsartan 40 mg tablet 40 mg PO BID #180 tabs 12/14/23 06/13/25 Rx nifedipine 60 mg tablet,extended 60 mg PO DAILY 90 days #90 tabs 03/01/24 06/13/25 Rx release bupropion HCl 300 mg 24 hr tablet, 300 mg PO QAM 07/21/24 06/13/25 History extended release docusate sodium 100 mg capsule 100 mg PO BID 07/21/24 06/13/25 History levothyroxine 112 mcg tablet 112 mcg PO DAILY #90 tabs 01/23/25 06/13/25 Rx rosuvastatin 5 mg tablet (Crestor) 5 mg PO DAILY #90 tabs 01/23/25 06/13/25 Rx baclofen 10 mg tablet 5 mg PO HS 05/31/25 06/13/25 History donepezil 5 mg tablet 5 mg PO DAILY 05/31/25 06/13/25 History famotidine 20 mg tablet 20 mg PO BID 05/31/25 06/13/25 History mirabegron 25 mg tablet,extended 25 mg PO DAILY 05/31/25 06/13/25 History release 24 hr (Myrbetriq) apixaban 5 mg (74 tabs) tablets in 5 mg PO QAM 06/13/25 06/13/25 History a dose pack (Eliquis) pantoprazole 40 mg tablet,delayed 40 mg PO DAILYBB 06/13/25 06/13/25 History release (Protonix) pioglitazone 15 mg tablet 15 mg PO DAILY 06/13/25 06/13/25 History venlafaxine 100 mg tablet 300 mg PO DAILY 06/13/25 06/13/25 History Past Med/Surg History Problem List (Updated 06/13/25 @ 22:49 by Kate Winters MD) Confusion (Acute) Generalized weakness (Acute) Hypoxia (Acute) DVT (deep venous thrombosis) (Acute) Pulmonary embolism (Acute) Hypoxia Hypertension (Acute) Hyperlipidemia (Acute) Nausea & vomiting (Acute) Acute hyponatremia (Acute) Hyponatremia Other specified peripheral vascular diseases Cellulitis of right toe Contusion of right great toe with damage to nail, initial encounter Weakness (Acute) Acute confusion (Acute) Altered mental status History of traumatic brain injury Ambulatory dysfunction Nocturia Spasticity as late effect of cerebrovascular accident (CVA) Gait disorder Low back pain DVT femoral (deep venous thrombosis) with thrombophlebitis Weakness of left arm Depression Epidural lipomatosis Stenosis, spinal, lumbar History of cervical spinal surgery C5-C6, C6-C7 in 2005; C4-C5 IN 01/2013 Lumbar vertebral fracture Neurogenic bladder Left leg weakness Fracture of fourth lumbar vertebra Vertigo due to brain injury Urinary incontinence Delirium due to known physiological condition Urinary frequency 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 59 minutes Microalbuminuria Anxiety Hypothyroidism Osteoarthritis Mood disorder Raynaud disease Colonic adenoma Sleep apnea Diabetes (Chronic) Medical History (Updated 06/13/25 @ 22:49 by Kate Winters MD) Edema of left lower leg 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) From a fall-has urgent orthopedic consult ordered Lumbar disc disease with radiculopathy Increased urinary frequency Basal cell carcinoma right med calf Cellulitis Carpal tunnel syndrome Surgical History S/P blepharoplasty 11/15/13 History of surgical fusion joint History of carpal tunnel repair left 08/2010 History of oral surgery History of tubal ligation Family History Mother Hypothyroidism Dyslipidemia Renal failure Heart failure Skin cancer basal cell Arthritis Father Hypertension Heart disease Dyslipidemia Skin cancer (melanoma) basal cell Melanoma of multiple sites Parkinson disease Sister Multiple sclerosis Brother Polymyositis Arthritis Melanoma of multiple sites Glaucoma Denies family history of Ovarian cancer Breast cancer Social History Smoking Status: Never smoker Second Hand Exposure: No; Do You Dip or Chew Tobacco: No; Hx Alcohol Use: No Hx Substance Use: No Preferred Language: Tajik Communication Ability: Effective Visual Impairment: Diminished Hearing Ability: Normal Steel Finisher Required: No Beliefs That Will Affect Care: None marital status: Current Living Situation: Alf Current Living Situation Comment: lives with sister and [id number] current occupational status: employed current occupation: [employer] How many Children do You have: 0 Feels Safe at Home: Yes Childhood Exposure to Second-Hand Smoke: No Diet: regular caffeine: Yes (1 cup a day) Dental Care, Regularly: Yes Physical Activity Frequency: Does not Exercise Seatbelt Use: always Sunscreen Use: Yes Assistive Devices: Walker Review of Systems Review of Systems: Unobtainable due to cognitive status All systems reviewed and unremarkable except as noted below Physical Exam Physical Exam: Lying in bed without any acute distress Constitutional: + ill appearing and average body habitus Eyes: PERRL, conjunctivae normal, anicteric sclerae ENMT: external ear and nose normal, oropharynx normal Respiratory: no respiratory distress Auscultation: lungs clear to auscultation bilaterally Cardiovascular: Rate/Rhythm: regular rate and regular rhythm; not tachycardic Heart Sounds: normal S1 and normal S2; no murmur Extremities: no edema Gastrointestinal (Abdomen): Inspection/Auscultation: normal bowel sounds; abdomen not distended Percussion/Palpation: abdomen soft; abdomen nontender Musculoskeletal: Extremities: + abnormal muscle tone (Spasticity in the lower extremities), + muscle atrophy (With spasticity mainly involving the lower extremities) and + foot abnormality (Flexural deformities of the ankle mostly on the right) Neurologic: Alert and awake. Pleasantly confused with no problem with speech. Spastic paraparesis with weaker left upper extremity Lymphatic: no cervical or axillary lymphadenopathy Results & Data Results & Data Vital Signs (Past 12 Hours) Vital Signs Pulse Pulse Ox O2 Del Method 06/13/25 20:45 93 Room Air 06/13/25 20:45 93 Room Air 06/13/25 20:33 86 Laboratory Results Short CBC 06/13/25 Range/Units 21:00 WBC 9.17 (4.8-10.8) K/ul Hgb 15.5 (12.0-16.0) g/dL Hct 45.0 (37.0-47.0) % Plt Count 389 (130-400) K/uL BMP 06/13/25 21:00 Sodium 136 Potassium 3.9 Chloride 102 Carbon Dioxide 23 BUN 18 Creatinine 1.03 Glucose 107 H Calcium 9.3 Liver Function 06/13/25 Range/Units 21:00 Total Bilirubin 0.5 (0.2-1.0) mg/dl AST 19 (13-39) U/L ALT 14 (7-52) U/L Alkaline Phosphatase 60 (34-104) U/L Albumin 3.8 (3.4-5.0) gm/dl Diagnostic Findings Laboratory Results WBC 9.17 K/ul (4.8-10.8) 06/13/25 21:00 RBC 4.95 M/uL (4.20-5.40) 06/13/25 21:00 Hgb 15.5 g/dL (12.0-16.0) 06/13/25 21:00 Hct 45.0 % (37.0-47.0) 06/13/25 21:00 MCV 90.9 fL (80.0-100.0) 06/13/25 21:00 MCH 31.3 pg (25.0-34.0) 06/13/25 21:00 MCHC 34.4 g/dL (32.0-36.0) 06/13/25 21:00 RDW Std Deviation 43.7 fL (36.4-46.3) 06/13/25 21:00 RDW Coeff of Manuel 13.1 % (11.5-14.5) 06/13/25 21:00 Plt Count 389 K/uL (130-400) 06/13/25 21:00 MPV 9.3 fL (9.4-12.4) L 06/13/25 21:00 Immature Gran % (Auto) 1.1 % 06/13/25 21:00 Neut % (Auto) 80.6 % 06/13/25 21:00 Lymph % (Auto) 9.5 % 06/13/25 21:00 Prentiss % (Auto) 7.5 % 06/13/25 21:00 Eos % (Auto) 0.9 % 06/13/25 21:00 Baso % (Auto) 0.4 % 06/13/25 21:00 Neut # (Auto) 7.39 K/uL (1.40-6.50) H 06/13/25 21:00 Lymph # (Auto) 0.87 K/uL (1.20-3.40) L 06/13/25 21:00 Prentiss # (Auto) 0.69 K/uL (0.11-0.59) H 06/13/25 21:00 Eos # (Auto) 0.08 K/uL (0.00-0.50) 06/13/25 21:00 Baso # (Auto) 0.04 K/uL (0.00-0.20) 06/13/25 21:00 Immature Gran # (Auto) 0.10 K/uL (0.01-0.20) 06/13/25 21:00 Sodium 136 mmol/L (136-145) 06/13/25 21:00 Potassium 3.9 mmol/L (3.5-5.1) 06/13/25 21:00 Chloride 102 mmol/L (98-107) 06/13/25 21:00 Carbon Dioxide 23 mmol/L (21-32) 06/13/25 21:00 Anion Gap 11 (3-11) 06/13/25 21:00 BUN 18 mg/dl (6-23) 06/13/25 21:00 Creatinine 1.03 mg/dl (0.6-1.2) 06/13/25 21:00 Est Cr Clr Drug Dosing 40.4 ml/min 06/13/25 21:00 eGFR 56.35 06/13/25 21:00 BUN/Creatinine Ratio 17.5 (10-20) 06/13/25 21:00 Glucose 107 mg/dl (70-99(Fasting)) H 06/13/25 21:00 Calcium 9.3 mg/dl (8.6-10.3) 06/13/25 21:00 Total Bilirubin 0.5 mg/dl (0.2-1.0) 06/13/25 21:00 AST 19 U/L (13-39) 06/13/25 21:00 ALT 14 U/L (7-52) 11/11/25 21:00 Alkaline Phosphatase 60 U/L (34-104) 06/13/25 21:00 Troponin I High Sens 5.7 pg/ml (0-14) 06/13/25 21:00 Total Protein 7.2 gm/dl (6.0-8.3) 06/13/25 21:00 Albumin 3.8 gm/dl (3.4-5.0) 06/13/25 21:00 Globulin 3.4 gm/dl (2.5-4.0) 06/13/25 21:00 Albumin/Globulin Ratio 1.1 (0.9-2) 06/13/25 21:00 Lipase 12 U/L (11-82) 06/13/25 21:00 Impressions Chest X-Ray 06/13/25 20:15 Exam(s): XR CXR 1 VIEW EXAM: XR Chest, 1 View CLINICAL HISTORY: Reason for exam: Chest pain, nonspecific. TECHNIQUE: Frontal view of the chest. COMPARISON: No relevant prior studies available. FINDINGS: Eventration of the right hemidiaphragm. Lungs: Mild to moderate peribronchial thickening of the central bronchi. No consolidation. Pleural space: Unremarkable. No pneumothorax. Heart: Unremarkable. No cardiomegaly. Mediastinum: Unremarkable. Normal mediastinal contour. Bones/joints: Anterior fusion of the distal cervical spine. No acute fracture. IMPRESSION: Bronchitis, which may be of infectious or inflammatory etiologies. No consolidation or pleural effusion. 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
[2025-06-13] MEDS ORDERED: GLUCAGON FOR INJ 1 MG VIAL SQ PRN (23:03)
[2025-06-13] MEDS ORDERED: GLUCOSE 10 TAB/TUBE PO PRN (23:03)
[2025-06-13] MEDS ORDERED: DEXTROSE 50% 50 ML SYRINGE IV PRN (23:03)
[2025-06-13] MEDS ORDERED: CARBOHYDRATES FOR HYPOGLYCEMIA PO PRN (23:03)
[2025-06-13] MEDS ORDERED: GLUCOSE 40% GEL 15 GM TUBE PO PRN (23:03)
[2025-06-13 23:26] VITALS: RESP 18
[2025-06-14] MEDS: LEVOTHYROXINE SODIUM 112 MCG TABLET PO SCH (06:30)
[2025-06-14] MEDS: FAMOTIDINE 20 MG TAB PO SCH (08:12)
[2025-06-14] MEDS: DOCUSATE SODIUM 100 MG CAP PO SCH (08:12)
[2025-06-14] MEDS: VALSARTAN 80 MG TAB PO SCH (08:13)
[2025-06-14] MEDS: NIFEdipine EXTENDED REL 30 MG TABCR PO SCH (08:13)
[2025-06-14] MEDS: APIXABAN 5 MG TABLET PO SCH (08:13)
[2025-06-14] MEDS: VENLAFAXINE HCL XR 150 MG CAPXR PO SCH (08:14)
[2025-06-14] MEDS: ROSUVASTATIN CALCIUM 5 MG TAB PO SCH (08:15)
[2025-06-14] MEDS: VIBEGRON 75 MG TAB PO SCH (08:15)
[2025-06-14] MEDS: DONEPEZIL HCL 5 MG TAB PO SCH (08:15)
[2025-06-14] MEDS: INSULIN ASPART PER UNIT CHARGE SC SCH (08:24)
[2025-06-14] MEDS ORDERED: LEVOTHYROXINE SODIUM 112 MCG TABLET PO SCH (09:00)
[2025-06-14] MEDS ORDERED: APIXABAN 5 MG TABLET PO SCH (09:00)
[2025-06-14 10:09] LABS: Hematocrit (blood only) 43.1 % (37.0-47.0); Hemoglobin 14.7 g/dL (12.0-16.0); Immature Granulocytes # (auto) 0.05 K/uL (0.01-0.20); Immature Granulocytes % (auto) 0.8 %; Mean Corpuscular Hemoglobin 30.7 pg (25.0-34.0); Mean Corpuscular Volume 90.0 fL (80.0-100.0); Platelet Count 370 K/uL (130-400); RDW Standard Deviation 43.5 fL (36.4-46.3); Red Blood Count 4.79 M/uL (4.20-5.40); White Blood Count 6.10 K/ul (4.8-10.8)
[2025-06-14 10:22] LABS: Anion Gap 11.0 (3-11); Blood Urea Nitrogen 20.0 mg/dl (6-23); Calcium 9.1 mg/dl (8.6-10.3); Carbon Dioxide 22.0 mmol/L (21-32); Chloride 101.0 mmol/L (98-107); Creatinine Clr Calc Pharmacy 45.1 ml/min; Glucose 121.0 mg/dl (70-99(Fasting)); Potassium 3.8 mmol/L (3.5-5.1); Sodium 134.0 mmol/L (136-145)
[2025-06-14 10:56] LABS: Chlamydia pneumoniae PCR Not Detected (NotDetected); Coronavirus 229E PCR Not Detected (NotDetected); Coronavirus CoV-2 (COVID19)PCR Not Detected (NotDetected); Coronavirus HKU1 PCR Not Detected (NotDetected); Coronavirus NL63 PCR Not Detected (NotDetected); Coronavirus OC43PCR Not Detected (NotDetected); Human Metapneumovirus PCR Not Detected (NotDetected); Parainfluenza Virus 1 PCR Not Detected (NotDetected); Parainfluenza Virus 2 PCR Not Detected (NotDetected); Parainfluenza Virus 3 PCR Not Detected (NotDetected); Parainfluenza Virus 4 PCR Not Detected (NotDetected); Respiratory Syncytial VirusPCR Not Detected (NotDetected); Rhinovirus/Enterovirus PCR Not Detected (NotDetected)
[2025-06-14 11:04] VITALS: BP 122/75; TEMP 97.7; O2SAT 91
[2025-06-14 11:49] VITALS: PULSE 92
--- NOTE | 2025-06-14 13:23 | Discharge Summary ---
Discharge Summary Date of Service June 14, 2025 Principal Dx & Hospital Course #1 = Principal Diagnosis (1) Chest pain: Sent in from [facility] with chest pain. Still complains some pain in the emergency room with some tightness in the lower chest Initial EKG and troponin was unremarkable He will be admitted to medical telemetry unit and serial cardiac enzymes and EKG will be done tomorrow Echo will be done as well Doubt any ACS Chest x-ray suggest bronchitis , no significant symptoms and/or examination findingsantibiotic was not prescribed (2) History of traumatic brain injury: Significant history of traumatic brain injury and subarachnoid hemorrhages with subsequent memory impairment/Dementia Has spastic paraparesis secondary She cannot bend her knees or her hips which are spastic (3) Spasticity as late effect of cerebrovascular accident (CVA): Has weakness in the left upper extremity more than other limbs Flexural deformities of the ankle Continue baclofen (4) Pulmonary embolism: History of DVT and pulmonary embolism Has been on Eliquis (5) Neurogenic bladder: Denies any acute issues (6) Anxiety: (7) Hypothyroidism: Continue replacement therapy (8) Sleep apnea: Does not use any CPAP and/or BiPAP (9) Diabetes: Has been on pioglitazone Will put her on sliding scale insulin coverage while in the hospital DVT prophylaxis On Eliquis CODE STATUS Full Notes For Next Care Provider 75 years old female with significant past medical history of traumatic brain injury/NORMAN's with subsequent memory impairment and spasticity from CVA, type 2 diabetes, MELITA not on any CPAP, gait disorder, anxiety, dementia and hypothyroidism apparently was sent in from [facility] with chest pain. Trop negative in ED, admitted for observation. In AM denies having any chest pain, feels at baseline right now. Xray noted to have bronchitis. On 06/14/2025 patient medically stable for discharge back to [facility]. To do: [ ] f/u with PCP [ ] please do eliquis 5mg bid for PE Medication Changes From Visit -see below Admission HPI Per Admitting Provider Limited history from the patient. Tried to call with sonny cordell and the sister without reply. Efforts should be made tomorrow. She is a 75 years old female with significant past medical history of traumatic brain injury/NORMAN's with subsequent memory impairment and spasticity from CVA, type 2 diabetes, MELITA not on any CPAP, gait disorder, anxiety, dementia and hypothyroidism apparently was sent in from [facility] with chest pain. The patient has noted to be seen this evening associated with some lower chest tightness and shortness of breath as per the patient. She complains of some nausea but no vomiting and denies any abdominal pain. Denies any fever and or chills, any palpitation associated with it. She was asymptomatic in the emergency room and apparent initial investigations including EKG and troponins are unremarkable. Given complex past medical history and dementia she was admitted to medical telemetry unit for continuation of care and rule out possibility of ACS. Discharge Exam Gen: A&O 2 NAD HEENT: NCAT, EOMI, not icteric. External ears normal. No rhinorrhea. Moist mucous membranes. Neck: Supple, full range of motion, no observable masses, No meningeal sign. Lungs: No Respiratory distress. CV: RRR, no edema. Abdomen: Soft, nondistended, No rebound tenderness. MSK: No joint swelling, no redness. Skin: No rashes, petechiae, lesions. Normal color per patient. Neuro: Normal Gait, Grossly intact. mentation at baseline Psych: Appropriate for situation. Updated Medication List Medication Instructions Recorded Confirmed Type valsartan 40 mg tablet 40 mg PO BID #180 tabs 12/14/23 06/13/25 Rx nifedipine 60 mg tablet,extended 60 mg PO DAILY 90 days #90 tabs 03/01/24 06/13/25 Rx release bupropion HCl 300 mg 24 hr tablet, 300 mg PO QAM 07/21/24 06/13/25 History extended release docusate sodium 100 mg capsule 100 mg PO BID 07/21/24 06/13/25 History levothyroxine 112 mcg tablet 112 mcg PO DAILY #90 tabs 01/23/25 06/13/25 Rx rosuvastatin 5 mg tablet (Crestor) 5 mg PO DAILY #90 tabs 01/23/25 06/13/25 Rx baclofen 10 mg tablet 5 mg PO HS 05/31/25 06/13/25 History donepezil 5 mg tablet 5 mg PO DAILY 05/31/25 06/13/25 History famotidine 20 mg tablet 20 mg PO BID 05/31/25 06/13/25 History mirabegron 25 mg tablet,extended 25 mg PO DAILY 05/31/25 06/13/25 History release 24 hr (Myrbetriq) pantoprazole 40 mg tablet,delayed 40 mg PO DAILYBB 06/13/25 06/13/25 History release (Protonix) pioglitazone 15 mg tablet 15 mg PO DAILY 06/13/25 06/13/25 History venlafaxine 100 mg tablet 300 mg PO DAILY 06/13/25 06/13/25 History apixaban 5 mg (74 tabs) tablets in 5 mg PO BID #0 ea 06/14/25 06/13/25 Rx a dose pack (Eliquis) Hospital Stay Data Consultations 06/13/25 22:08 ED Decision to Admit Stat Pending Results Patient Have Any Pending Studies at Discharge: No Discharge Instructions Given to Patient (Per Discharging Provider) Diagnosis: noncardiac chest pain (resolved), bronchitis Follow Ups: PCP 1. Please follow up with PCP. 2. Please take eliquis 5mg bid for PE. 3. Stay hydrated! Total Time Total Time Spent Total Time Spent (In Minutes): I spent a total of 35 minutes in direct patient care, including [id number] time with the patient and/or family, reviewing medical records, ordering and reviewing diagnostic tests, and coordinating care with other healthcare providers. This time includes: history taking, physical examination, medical decision making, counseling, ECG interpretation, imaging interpretation, lab interpretation, orders, and education, excluding time spent in the performance of separately billed services.
--- NOTE | 2025-06-14 13:48 | XCELERA ---
[id number]
[2025-06-14] MEDS ORDERED: BACLOFEN 10 MG TAB PO SCH (21:00)
--- NOTE | 2025-06-16 08:33 | Electrocardiogram Report ---
Test Reason : Blood Pressure : */* mmHG Vent. Rate : 85 BPM Atrial Rate : 85 BPM P-R Int : 146 ms QRS Dur : 104 ms QT Int : 402 ms P-R-T Axes : 17 -1 127 degrees QTcB Int : 478 ms Poor data quality, interpretation may be adversely affected Normal sinus rhythm Left bundle branch block Abnormal ECG When compared with ECG of 31-May-2025 16:09, No significant change Confirmed by Harris Figueredo ([id number]) on 06/16/2025 8:33:04 AM Referred By: REFERRED SELF Confirmed By: Harris Figueredo
== END 2025-06-14 15:23 | disposition home or self-care (01) ==
LOC: 2W 20:13 → ED 20:13 → 2W 06-14